=== PATIENT | male | born 1975 | race Caucasian/White ===

== ENCOUNTER 2021-01-01 10:26 | Emergency (ER) | payer BC, SELFPAY ==
[2021-01-01 11:09] VITALS: BP 137/84; PULSE 85; RESP 18; TEMP 36.4; O2SAT 100
--- NOTE | 2021-01-01 11:44 | ED.LOWEXIN ---
HPI - Extremity Injury (Lower) General Chief Complaint: Extremity Problem,Nontraumatic Stated Complaint: pain in lt leg Time Seen by Provider: 01/01/21 11:52 Source: patient and RN notes reviewed Mode of arrival: ambulatory Limitations: no limitations History of Present Illness HPI Narrative: Basim is a 45-year-old male patient who ambulated into the [facility]. Patient has had left miller pain for the last 2 days. Patient denies any fever. Patient states that it was soreness yesterday but at the end of his shift he could barely walk. Patient denies any [id number] treatment Related Data Allergies Allergy/AdvReac Type Severity Reaction Status Date / Time No Known Allergies Allergy Verified 01/01/21 11:53 Review of Systems Review of Systems: CONSTITUTIONAL: Denies body aches, fever, chills, or sweats. EYES: Denies visual changes, redness, or discharge. ENT: Denies rhinorrhea, congestion, sore throat, or otalgia. CARDIOVASCULAR: Denies chest pain, palpitations, or edema. RESPIRATORY: Denies cough or dyspnea. GASTROINTESTINAL: Denies abdominal pain, nausea, vomiting, or diarrhea. GENITOURINARY: Denies dysuria or hematuria. SKIN: Denies rash, itching, or wounds. MUSCULOSKELETAL: Denies back pain, joint pain, or myalgia; + Left miller pain NEUROLOGIC: Denies headache, numbness, tingling, or weakness. PSYCH: Denies depression or anxiety. All systems reviewed & are unremarkable except as noted in HPI and below PMFSH Comments At time of signature, I have reviewed and agree with nursing past medical, surgical, social and family history unless otherwise noted. Please see nursing chart for further information. There is no relevant family history pertinent to the presenting complaint Exam Narrative: GENERAL: Well-appearing, well-nourished, and in no acute distress. HEAD: Normocephalic, atraumatic. EYES: EOMI. No redness or drainage. Conjunctivae normal. ENT: Mucous membranes pink and moist. Nares clear. No rhinorrhea. . NECK: Normal AROM. Supple. No lymphadenopathy. CHEST: No respiratory distress. Clear to auscultation. HEART: Regular rate and rhythm. No murmur appreciated. Normal peripheral pulses. ABDOMEN: Soft, nontender, nondistended, normal active bowel sounds. MUSCULOSKELETAL: No bony tenderness. EXTREMITIES: Normal range of motion. Left lower miller with minimal erythema, edema, and increased warmth to touch. approximately 4cm round area of increased warmth and mild erythema noted. SKIN: Warm, dry, no rash. Capillary refill normal. Normal skin turgor., negative homans sign left leg. NEURO: No focal deficits. Alert and oriented x3. Gait steady. PSYCH: Normal affect. No signs of depression or anxiety. Course Vital Signs Vital signs: Vital Signs Temperature 36.4 C 01/01/21 11:09 Pulse Rate 85 01/01/21 11:09 Respiratory Rate 18 01/01/21 11:09 Blood Pressure 137/84 01/01/21 11:09 Pulse Oximetry 100 01/01/21 11:09 Temperature 36.4 C 01/01/21 11:09 Pulse Rate 85 01/01/21 11:09 Respiratory Rate 18 01/01/21 11:09 Blood Pressure 137/84 01/01/21 11:09 Pulse Oximetry 100 01/01/21 11:09 Reviewed. Pt has been instructed to follow up with his PCP regarding his elevated blood pressure today. MDM - Extremity Injury (Lower) MDM Narrative Medical decision making narrative: Patient's left miller is minimally erythemic with mild edema approximately 3 cm round area has increasing warmth compared to distal lower extremity in his right leg. Patient will be treated with anti-inflammatories and antibiotics. Patient to follow-up with his primary care physician in 3 to 5 days for continued or increasing symptoms. Differential Diagnosis Differential diagnosis: Likely ankle sprain and strain, fracture of toe, ankle fracture and other (Cellulitis) Medical Records Attestation: I reviewed the patient's medical records. Critical Care Time Critical Care Time Critical Care Time: No Discharge Plan
== END 2021-01-01 12:11 | disposition home or self-care (01) ==
PROVIDERS: Emergency Provider Nurse Practitioner Family
DX: L03.116 Cellulitis of left lower limb (principal)
CPT/HCPCS: 99203; G0463

== ENCOUNTER 2024-01-28 13:40 | Emergency (ER) | payer OTHER, SELFPAY ==
[2024-01-28 14:10] VITALS: BP 146/86; PULSE 71; RESP 18; TEMP 36.7; O2SAT 97
--- NOTE | 2024-01-28 14:14 | ED.GENADULT ---
HPI - General Adult General Chief complaint: Upper Respiratory Infection Stated complaint: congestion/cough Time Seen by Provider: 01/28/24 14:14 Source: patient Mode of arrival: ambulatory Limitations: no limitations History of Present Illness HPI narrative: 48-year-old male patient presents to the [facility] with complaints of congestion, cough and cold symptoms for the past 2 weeks. Denies fevers, body aches or chills. Patient states that he saw his primary doctor this past Tuesday and stated that it was most likely viral will go away on its own. Patient states he has been taking [id number] Mucinex and decongestants and has not helped. Related Data Home Medications ?Medication ?Instructions ?Recorded ?Confirmed ?Last Taken ?Type bupropion HCl 150 mg 24 hr tablet, mg PO 01/28/24 Unknown History extended release trazodone 50 mg tablet mg 01/28/24 Unknown History Allergies Allergy/AdvReac Type Severity Reaction Status Date / Time No Known Allergies Allergy Verified 01/28/24 14:14 Review of Systems Review of Systems: CONSTITUTIONAL: Denies fever, chills, or sweats. EYES: Denies visual changes, redness, or discharge. ENT: Positive rhinorrhea, congestion, denies sore throat, or otalgia. CARDIOVASCULAR: Denies chest pain, palpitations, or edema. RESPIRATORY: positive mild intermittent cough, denies dyspnea. GASTROINTESTINAL: Denies abdominal pain, nausea, vomiting, or diarrhea. GENITOURINARY: Denies dysuria or hematuria. SKIN: Denies rash or itching. MUSCULOSKELETAL: Denies back pain, joint pain, or myalgia. NEUROLOGIC: positive headache, denies numbness, or weakness. PSYCHIATRIC: Denies anxiety or depression. PMFSH Comments At the time of my signature I agree with nursing past medical history, surgical, social, and family history. There is no relevant family history pertinent to the presenting complaint. Exam Narrative: GENERAL: Well-appearing, well-nourished, and in no acute distress. HEAD: Normocephalic, atraumatic. EYES: PERRLA and EOMI. ENT: Nares with erythema and edema noted bilaterally, clear rhinorrhea or epistaxis. Mucous membranes moist. posterior pharynx with postnasal drip noted. Tonsils with no enlargement or exudates noted. Bilateral TMs are clear no erythema or foreign bodies the canal there is little bit of fluid noted behind the TM. NECK: Supple. No lymphadenopathy CHEST: Clear to auscultation. No respiratory distress. HEART: Regular rate and rhythm. No murmur heard. Normal peripheral pulses. ABDOMEN: Soft, nontender, nondistended, normal active bowel sounds. EXTREMITIES: Normal range of motion. No edema. SKIN: Warm, dry, no rash. NEURO: No focal deficits. Alert and oriented x3. Course Course Level of Care: Express [facility] Visit Vital Signs Vital signs: Vital Signs Temperature 36.7 C 01/28/24 14:10 Pulse Rate 71 01/28/24 14:10 Respiratory Rate 18 01/28/24 14:10 Blood Pressure 146/86 H 01/28/24 14:10 Pulse Oximetry 97 01/28/24 14:10 Oxygen Delivery Room Air 01/28/24 14:10 Temperature 36.7 C 01/28/24 14:10 Pulse Rate 71 01/28/24 14:10 Respiratory Rate 18 01/28/24 14:10 Blood Pressure 146/86 H 01/28/24 14:10 Pulse Oximetry 97 01/28/24 14:10 Oxygen Delivery Room Air 01/28/24 14:10 Vital signs reviewed. The patient has been informed that they may have pre-hypertension or Hypertension based on a BP reading in the department. I recommend that the patient call the primary care provider listed on their discharge instructions or a physician of their choice this week to arrange follow up for further evaluation of possible pre-hypertension or Hypertension Medical Decision Making MDM Narrative Medical decision making narrative: Discussed with patient he is not running fevers and there is no other signs of any kind of bacterial infection. Discussed with him this is most likely inflammation highly recommend that he do a daily antihistamine something like Zyrtec, Claritin or Leila and may also use a sinus rinse something like a Neti pot or Flonase to help with the congestion. We will also provide him a steroid to help with the inflammation and dry up the sinus drainage. Discussed patient he does not need antibiotics at this time this is not considered bacterial. Patient verbalized understanding denies any other questions or concerns at this time. Differential Diagnosis Differential Diagnosis: Differential diagnosis: Allergic rhinitis, chronic sinusitis, tonsillitis, acute sinusitis, infectious mononucleosis, seasonal influenza, pertussis, diphtheria, meningococcal disease, viral syndrome, viral bronchitis, RSV, COVID-19 Vital Signs Vital Signs: Vital Signs Temperature 36.7 C 01/28/24 14:10 Pulse Rate 71 01/28/24 14:10 Respiratory Rate 18 01/28/24 14:10 Blood Pressure 146/86 H 01/28/24 14:10 Pulse Oximetry 97 01/28/24 14:10 Oxygen Delivery Room Air 01/28/24 14:10 Temperature 36.7 C 01/28/24 14:10 Pulse Rate 71 01/28/24 14:10 Respiratory Rate 18 01/28/24 14:10 Blood Pressure 146/86 H 01/28/24 14:10 Pulse Oximetry 97 01/28/24 14:10 Oxygen Delivery Room Air 01/28/24 14:10 Critical Care Time Critical Care Time Critical Care Time: No Discharge Plan Discharge Clinical Impression: Sinusitis Qualifiers: Sinusitis location: unspecified location Chronicity: acute Recurrence: non-recurrent Qualified Code(s): J01.90 - Acute sinusitis, unspecified Patient Disposition: Home, Self-Care Condition: Stable Instructions: Antibiotic Form, Sinusitis (ED) Additional Instructions: Viral illness may last between 7-12days; antibiotic is NOT recommended at this time. Recommend antihistamine such as Benadryl at night time and Claritin/Zyrtec/Leila during the day Cough syrup may cause drowsiness; avoid driving or take it at night time. Also, recommend symptomatic treatment includes: rest, fluids, and increase humidity of the air at home. Recommend Acetaminophen or nonsteroidal anti-inflammatory agents (NSAIDs) as directed in the bottle to reduce fever and/pain/headache. Avoid smoking/second-hand smoke. Limit visits to areas with large crowds. Please schedule a follow-up visit with your personal physician for further evaluation and treatment within 3-5days. Including recheck and discussion of your blood pressure. If your symptoms persist, change or worsen significantly before you can contact your personal physician then please, without delay, go to the emergency department for further evaluation. Patient Language: [place] Islander Prescriptions: New prednisone 20 mg tablet 20 mg PO DAILY 5 Days Qty: 5 0RF No Action trazodone 50 mg tablet bupropion HCl 150 mg tablet extended release 24 hr PO Follow-up/Referrals: Vikas,MD Stefania [Primary Care Provider] - Time of Disposition: 14:21
--- OUTSIDE RECORDS SUMMARY | 2024-02-01 16:59 | XMS_ITS | Encounter Summary ---
Author Organization [facility] Address [facility] [place] [address] [place] [address] Care Team Providers Care Supervisor Dry Paste Name Role Phone Stefania Bean MD Primary Care Provider [phone] Encounter Details Date Type Department Care Team (Late st Contact Info) Description 11/14/2023 Orders Only [facility] Family & Internal Medicine [facility] [address] [place] [address] [place] [address] [place] [address] Social History Tobacco Use Types Packs/Day Years Used Date Smoking Tobacco: Never Smokeless Tobacco: Never Alcohol Use Standard Drinks/Week Comments Never 0 (1 standard drink = 0.6 oz pur e alcohol) PHQ-2 Answer Date Recorded Patient Health Questionnaire-2 Score 5 09/09/2023 Sex and Gender Information Value Date Recorded Sex Assigned at Not on file Legal Sex Male 9:21 AM CDT Gender Identity Not on file Sexual Orientation Not on file documented as of this encounter Plan of Treatment Upcoming Encounters Date Type Department Care Team (Late st Contact Info) Description 07/23/2024 9:00 AM CDT Office Visit [facility] Family & Internal [facility] [address] [place] [address] [place] [address] [place] [phone] documented as of this encounter Visit Diagnoses Diagnosis Vitamin D deficiency- Primary Unspecified vitamin D deficiency documented in this encounter Additional Health Concerns Assessment Noted Time PHQ-9 Depression Total Score: 18 024 3:11 PM CDT documented as of this encounter Care Teams Supervisor Dry Paste Relationship Specialty [place] [id number] [place] [id number] PCP - General FAMILY PRACTICE 06/01/21 documented as of this encounter
--- OUTSIDE RECORDS SUMMARY | 2024-02-01 16:59 | XMS_ITS | Clinical Summary ---
Author Organization [facility] Address [facility] [place] [address] [place] [address] Care Team Providers Care Counterintelligence Agent Name Role Phone Stefania Bean MD Primary Care Provider [phone] Allergies No known active allergies Medications vitamin D2, ergocalcifero l, (DRISDOL) 1.25 mg capsuleIndica tions:Vitamin D deficiency 50,000 units weekly for 12 weeks. Continue vitamin D 1,000 units for 3 to 6 months after this date. 12 capsule 06/17/19 23 Active Additional Information Patient taking differently: 1,000 Units Oral Daily, 50,000 units weekly for 12 weeks. Continue vitamin D 1,000 units for 3 to 6 months after this date., Reported on 01/24/2024 vitamin D3 (CHOLECALCIFE ROL) 1.25 mg capsuleIndica tions:Vitamin D deficiency Take 1 capsule (50,000 Units total) by mouth once a week. 12 capsule 11/14/19 24 Active buPROPion XL (WELLBUTRIN XL) 150 MG 24 hr tabletIndicat ions:Moderate episode of recurrent major depressive disorder (CMS/HCC HHS/HCC) Take 2 tablets (300 mg total) by mouth every morning. 60 tablet 5 01/24/20 24 Active traZODone (DESYREL) 50 MG tabletIndicat ions:Moderate episode of recurrent major depressive disorder (CMS/HCC HHS/HCC) TAKE 0.5 TABLETS BY MOUTH NIGHTLY AT BEDTIME. 15 tablet 5 02/01/20 24 Active traZODone (DESYREL) 50 MG tabletIndicat ions:Moderate episode of recurrent major depressive disorder (CMS/HCC HHS/HCC) Take 1 tablet (50 mg total) by mouth nightly at bedtime. 30 tablet 5 10/12/19 24 024 Discontinued(Re order) buPROPion XL (WELLBUTRIN XL) 150 MG 24 hr tabletIndicat ions:Moderate episode of recurrent major depressive disorder (CMS/HCC HHS/HCC) Take 1 tablet (150 mg total) by mouth every morning. 30 tablet 5 10/12/19 24 024 Discontinued(Re order) buPROPion XL (WELLBUTRIN XL) 150 MG 24 hr tabletIndicat ions:Moderate episode of recurrent major depressive disorder (CMS/HCC HHS/HCC) Take 1 tablet (150 mg total) by mouth every morning. 30 tablet 5 01/24/20 24 024 Discontinued traZODone (DESYREL) 50 MG tabletIndicat ions:Moderate episode of recurrent major depressive disorder (CMS/HCC HHS/HCC) Take 1 tablet (50 mg total) by mouth nightly at bedtime. 30 tablet 5 01/24/20 24 024 Discontinued Active Problems Problem Noted Date Diagnosed Date Gender identity disorder, unspecified 04/11/2023 Elevated glucose 06/05/2021 Dysthymia 08/25/2020 Fatigue, unspecified type 08/25/2020 Class 1 obesity due to exces s calories without serious comorbidity with body mass index (BMI) of 33.0 to 33.9 in adult 08/25/2020 Medication management 08/25/2020 DAVION (obstructive sleep apnea) 08/25/2020 Overview (08/25/2020): Not currently on CPAP. ESS 04/09 - [id number] Resolved Problems Problem Noted Date Diagnosed Date Resolved Date Screening for colon cancer 07/01/2023 0 07/11/2023 Screening for colon cancer 07/01/2023 0 08/22/2023 Screening for colon cancer 07/01/2023 0 08/29/2023 Encounters Date Type Department Care Team Description 01/24/2024 11:40 AM BRAND MANAGER Office Visit [facility] Family & Internal Medicine [address] [address] Stefania Bean MD Medication (3 month follow up medication) 01/24/2024 Travel 11/14/2023 Orders Only [facility] Medical [facility] Family & Internal Medicine [facility] [address] [place] [address] Stefania Bean MD from Last 3 Months Immunizations Name Administration Dates Next Due MMR 01/30/2008 Td 10/09/2007 Tdap (Adacel) 06/05/2021 Family History Medical History Relation Comments Alcohol Abuse Father Depression Father Drug Abuse Father Early Father Hypertension Father Mental Health Father Stroke Father Heart Disease Maternal Grandfather Heart Disease Other Relation Status Comments Father Maternal Grandfather Mother Alive Other Alive Social History Tobacco Use Types Packs/Day Years Used Date Smoking Tobacco: Never Smokeless Tobacco: Never Tobacco Cessation:Counseling Given: No Alcohol Use Standard Drinks/Week Comments Never 0 (1 standard drink = 0.6 oz pur e alcohol) PHQ-2 Answer Date Recorded Patient Health Questionnaire-2 Score 6 01/24/2024 Sex and Gender Information Value Date Recorded Sex Assigned at Not on file Legal Sex Male 9:21 AM CDT Gender Identity Not on file Sexual Orientation Not on file Last Filed Vital Signs Vital Sign Reading Time Taken Comments Blood Pressure 135/87 01/24/2024 11:38 AM BRAND MANAGER Pulse 67 01/24/2024 11:38 AM BRAND MANAGER Temperature 37 ??C (98.6 ??F) 01/24/2024 11: 38 AM BRAND MANAGER Respiratory Rate 16 01/24/2024 11:3 8 AM BRAND MANAGER Oxygen Saturation 97% 01/24/2024 11: 38 AM BRAND MANAGER Inhaled Oxygen Concentration - - Weight 105.4 kg (232 lb 6.4 oz) 024 11:38 AM BRAND MANAGER Height 180.3 cm (5' 11 ) 01/24/2024 11: 38 AM BRAND MANAGER Body Mass Index 32.41 01/24/2024 11:38 AM BRAND MANAGER Plan of Treatment Upcoming Encounters Date Type Department Care Team (Late st Contact Info) Description 07/23/2024 9:00 AM CDT Office Visit [facility] Family & Internal Medicine [facility] [address] [place] [address] [place] [address] [facility] [place] [id number] Health Maintenance Due Date Last Done Comments Annual Physical 05/09/1978 Hepatitis B Vaccines (1 of 3 - 19+ 3-dose series) 05/09/1994 COVID-19 Vaccine (2023-2 5 season) 2025 Postponed from 10/16/2023 (Patient Refused) Influenza Adult (#1) 2025 Postpon ed from 11/15/2023 (Patient Refused) DTaP, Tdap and Td Vaccines ( 2 - Td or Tdap) 06/06/2031 06/05/2021, 10/09/2007 Colorectal Cancer Screening Colonoscopy (10 Years) 08/25/2033 08/26/2023 Colorectal Cancer Screening FIT/FOBT (1 Year) Discontinued 11/02/2018 Hepatitis C Completed 06/05/2021 Meningococcal Vaccine Aged Out No gerald pierre eligible based on patient's age to complete this topic Pneumococcal Vaccine: Pediatrics (0 to 5 Years) and At-Risk Patients (6 to 64 Years) Aged Out No longer eligible b ased on patient's age to complete this topic RSV Immunizations Under 20 Months Aged Out No longer eligible b ased on patient's age to complete this topic Procedures Procedure Name Priority Date/Time Associated Diagnosis Comments HEPATITIS C ANTIBODY W/RFX TO HCV RNA Routine 06/05/2021 8:38 AM CDT Need for hepatitis C screening test FECAL BLOOD FIT SCREEN Routine 11/02/2018 9:40 AM CDT from Last 3 Months or Most Recently Relevant to Health Maintenance Results * HEPATITIS C ANTIBODY ([facility] ONLY) (06/05/2021 8:38 AM CDT) HEPATITIS C AB NON-REACTI VE NON-REACT MARQUISE [facility] SIGNAL TO CUTOFF 0.01 <[address] [facility] Comment: HCV antibody was non-reactive. There is no laboratory evidence of HCV infection. In most cases, no further action is required. However, if recent HCV exposure is suspected, a test for HCV RNA (test code 65411) is suggested. For additional information please refer to http://[email or web address] Revolution/faq/VQO83u4 (This link is being provided for informational/ educational purposes only.) 06/05/2021 8:38 AM CDT 06/06/2021 6:36 AM CDT us Stefania Bean MD LABORATORY Final Result [facility] [address] [facility] [address] * FECAL BLOOD FIT SCREEN (11/02/2018 9:40 AM CDT) FECAL BLOOD FIT SCRN NEGATIVE NEGATIVE 11/10/2018 10:57 AM CDT [facility] 11/02/2018 9:40 AM CDT us Ania Sahu MD BODY FLUIDS AND STOOLS O RDERABLES Final Result [facility] [address] [place] [address], from Last 3 Months or Most Recently Relevant to Health Maintenance Insurance [employer] Care Teams Counterintelligence Agent Relationship Specialty [place] [address] [place] [address] PCP - General FAMILY PRACTICE 06/01/21
--- OUTSIDE RECORDS SUMMARY | 2024-02-01 16:59 | XMS_ITS | Encounter Summary ---
Author Organization [facility] Address [facility] [place] [address] [place] [address] Care Team Providers Care Peer Counselor Name Role Phone Stefania Bean MD Primary Care Provider Reason for Visit * Reason Comments Medication 3 month follow up me dication Encounter Details Date Type Department Care Team (Late st Contact Info) Description 01/24/2024 11:40 AM SNOW BLOWER Office Visit [facility] Internal Medicine [facility] [id number] [place] [address] [place] [id number] [place] [address]. [address] [place] [address] Medication (3 month follow up medication) Social History Tobacco Use Types Packs/Day Years [...] on file documented as of this encounter Last Filed Vital Signs Vital Sign Reading Time Taken Comments Blood Pressure 135/87 01/24/2024 11:38 AM SNOW BLOWER Pulse 67 01/24/2024 11:38 AM SNOW BLOWER Temperature 37 ??C (98.6 ??F) 01/24/2024 11: 38 AM SNOW BLOWER Respiratory Rate 16 01/24/2024 11:3 8 AM SNOW BLOWER Oxygen Saturation 97% 01/24/2024 11: 38 AM SNOW BLOWER Inhaled Oxygen Concentration - - Weight 105.4 kg (232 lb 6.4 oz) 024 11:38 AM SNOW BLOWER Height 180.3 cm (5' 11 ) 01/24/2024 11: 38 AM SNOW BLOWER Body Mass Index 32.41 01/24/2024 11:38 AM SNOW BLOWER documented in this encounter Progress Notes * Stefania eBan MD - 01/24/2024 11:40 AM CST Reason for Visit: Medication (3 month follow up medication) History of Present Illness: HPI Mr. Mio Bernard is a pleasant 48 year old Male with PMH of dysthymia, hx of prediabetes ,HLD,gender identity DISORDER AND depression was seen today for 3-month follow-up. The patient reported experiencing sinus congestion, noting that this occurs annually when there aresignificant temperature changes. The patient did not report fever, sore throat, ear pain, or recentcontact with sick individuals. The patient mentioned that their symptoms were improving. The patient completed transcranial magnetic stimulation (TMS) treatment but did not notice any difference in their condition. The patient expressed feelings of depression and described their current medication regimen, which includes Wellbutrin and Trazodone. The patient reported no longer seeing atherapist but is planning to start couple's therapy soon. The patient did not report chest pain or dizzy spells and noted that sleep quality was good. The patient has a family history of heart problems, specifically with the maternal grandfather. The patient is aware of slightly elevated cholesterol levels from a October blood test and is making dietary changes and maintaining regular physical a ctivity, achieving about 10,000 steps per night at work. Pertinent negatives include no reported chest pain or dizzy spells. ROS: Review of Systems negative except HPI Medications: Current Outpatient Medications: buPROPion XL (WELLBUTRIN XL) 150 MG 24 hr tablet, Take 1 tablet (150 mg total) by mouth every morning., Disp: 30 tablet, Rfl: 5 traZODone (DESYREL) 50 MG tablet, Take 1 tablet (50 mg total) by mouth nightly at bedtime., Disp: 30 tablet, Rfl: 5 vitamin D2, ergocalciferol, (DRISDOL) 1.25 mg capsule, 50,000 units weekly for 12 weeks. Continue vitamin D 1,000 units for 3 to 6 months after this date. (Patient taking differently: Take 1,000 Units by mouth daily. 50,000 units weekly for 12 weeks. Continue vitamin D 1,000 units for 3 to 6 monthsafter this date.), Disp: 12 capsule, Rfl: 0 vitamin D3 (CHOLECALCIFEROL) 1.25 mg capsule, Take 1 capsule (50,000 Units total) by mouth once a week., Disp: 12 capsule, Rfl: 0 Review of patient's allergies indicates: No Known Allergies Past Medical History: Diagnosis Date Allergy seasonal COVID-19 12/2019 Depression Gender dysphoria Sleep apnea Past Surgical History: Procedure Laterality Date COLONOSCOPY N/A 08/26/2023 Colonoscopy with polypectomy performed by Harvey Pradhan MD at [facility] OR REMOVAL OF SPERM DUCT(S) Social History Socioeconomic History Marital status: Tobacco Use Smoking status: Never Smokeless tobacco: Never Vaping Use Vaping status: Never Used Substance and Sexual Activity Alcohol use: Never Drug use: Never Sexual activity: Yes Partners: Female control/protection: Surgical Social History Narrative Lives with and family E-Cigarettes Questions Responses E-Cigarette Use Never User E-cigarette/Vaping Substances Questions Responses Nicotine No THC No CBD No Flavoring No E-cigarette/Vaping Devices Questions Responses Disposable No Pre-filled or Refillable Cartridge No Refillable Tank No Pre-filled Pod No Family History Problem Relation Name Age of Onset Alcohol Abuse Father Ed Strange Depression Father Ed Strange Drug Abuse Father Ed Strange Early Father Ed Strange Hypertension Father Ed Strange Mental Health Father Ed Strange Stroke Father Ed Strange Heart Disease Other family history Heart Disease Maternal Grandfather Roscoe Kemp Family Status Relation Name Status Mother Alive Father Ed Strange Other family history Alive MGF Roscoe Kemp (Not Specified) No partnership data on file Physical Exam Vitals reviewed. Constitutional: Appearance: Normal appearance. He is obese. HENT: Head: Normocephalic. Nose: Congestion present. Eyes: Conjunctiva/sclera: Conjunctivae normal. Cardiovascular: Rate and Rhythm: Normal rate and regular rhythm. Pulmonary: Effort: Pulmonary effort is normal. No respiratory distress. Breath sounds: Normal breath sounds. No wheezing. Musculoskeletal: Right lower leg: No edema. Left lower leg: No edema. Skin: General: Skin is warm. Neurological: Mental Status: He is alert and oriented to person, place, and time. Mental status is at baseline. Psychiatric: Attention and Perception: Attention normal. Mood and Affect: Mood is depressed. Behavior: Behavior normal. Thought Content: Thought content does not include homicidal or suicidal ideation. Thought content does not include homicidal or suicidal plan. Cognition and Memory: Cognition normal. Filed Vitals: 01/24/24 1138 BP: 135/87 Pulse: 67 Resp: 16 Temp: 98.6 ??F (37 ??C) TempSrc: Temporal SpO2: 97% Weight: 105.4 kg (232 lb 6.4 oz) Height: 1.803 m (5' 11 ) PainSc: 0 (0-10 Scale) Diagnoses/Impression: 1. Moderate episode of recurrent major depressive disorder (CMS/HCC [facility]/HCC) buPROPion XL (WELLBUTRIN XL) 150 MG 24 hr tablet traZODone (DESYREL) 50 MG tablet 2. Gender identity disorder, unspecified 3. Elevated LDL cholesterol level 4. Acute non-recurrent frontal sinusitis Recommendations and Plan: Depression is chronic. Stable. Continue trazodone.Increase wellbutrin to 300 mg qD FU WITH PSYCH IF NEEDED Continue therapy. CHOLESTrol is diet controlled. Advised 30 mins of exercise 5 times a week. advised reducing intake of fatty and greasy foods. - Encouraged regular physical activity and incorporating short routines of yoga or meditation to improve mood. Conservative management for sinusitis, abx if symptoms persist by end of week. He will call office Follow-up in 6 months. Earlier if needed. He voiced understanding and agrees with the plan. All questions answered. Orders Placed This Encounter buPROPion XL (WELLBUTRIN XL) 150 MG 24 hr tablet traZODone (DESYREL) 50 MG tablet Reviewed and updated this visit by provider: Allergies Meds Problems Stefania Bean MD Referring Provider: No ref. provider found PCP: Stefania Bean MD BLOWER documented in this encounter Plan of Treatment Upcoming Encounters Date Type Department Care Team (Late st Contact Info) Description 07/23/2024 9:00 AM CDT Office Visit [facility] Family & Internal Medicine [address] [phone] [place] [address] [address] [place] [address] documented as of this encounter Visit Diagnoses Diagnosis Moderate episode of recurrent major depressive disorder ([facility])- Primary Gender identity disorder, unspecified Elevated LDL cholesterol level Pure hypercholesterolemia Acute non-recurrent frontal sinusitis documented in this encounter Additional Health Concerns Assessment Noted Time PHQ-9 Depression Total Score: 12 024 11:44 AM SNOW BLOWER documented as of this encounter Care Teams Peer Counselor Relationship Specialty [place] [address] [place] [address] PCP - General FAMILY PRACTICE 06/01/21 documented as of this encounter
--- OUTSIDE RECORDS SUMMARY | 2024-02-01 16:59 | XMS_ITS | Encounter Summary ---
Author Organization [facility] Address [facility]6 [facility] [place] [address] [place] [address] Care Team Providers Care Patient Portal Concierge Name Role Phone Stefania Bean MD Primary Care Provider [phone] Encounter Details Date Type Department Care Team (Latest Contact Info) Description 01/24/2024 Travel Social History Tobacco Use Types Packs/Day Years [...] [facility] [address] [place] [address] [place] [address] [facility] [employer] [address] [place] [address] documented as of this encounter Visit Diagnoses Not on filedocumented in this encounter Additional Health Concerns Assessment Noted Time PHQ-9 Depression Total Score: 12 024 11:44 AM COVER CREASER documented as of this encounter Care Teams Patient Portal Concierge Relationship Specialty [place] [address] [facility] [employer] [address] [place] [address] PCP - General FAMILY PRACTICE 06/01/21 documented as of this encounter
--- OUTSIDE RECORDS SUMMARY | 2024-02-01 16:59 | XMS_ITS | Encounter Summary ---
Author Organization [facility] Address [facility] [address] [place] [address] Care Team Providers Care Sales Representative Public Utilities Name Role Phone Stefania Bean MD Primary Care Provider [phone] Encounter Details Date Type Department Care Team (Late st Contact Info) Description 10/31/2023 9:00 AM CDT Laboratory Only [facility] Family & Internal [address] [address] [place] [address] [address] [place] [address] Social History Tobacco Use Types Packs/Day [...] Description 07/23/2024 9:00 AM CDT Office Visit [facility] Family & Internal [facility] [address] [place] [address] [place] [address] [address] [place] [address] documented as of this encounter Procedures Procedure Name Priority Date/Time Associated Diagnosis Comments VENIPUNC ARM DRAW Routine 10/31/2023 8:43 AM CDT Vitamin D deficiency Lipid screening Moderate episode of recurrent major depressive disorder ([facility] HHS/HCC) documented in this encounter Visit Diagnoses Diagnosis Vitamin D deficiency- Primary Unspecified vitamin D deficiency Lipid screening Screening for lipoid disorders Moderate episode of recurrent major depressive disorder (CMS/HCC HHS/HCC) documented in this encounter Additional Health Concerns Assessment Noted Time PHQ-9 Depression Total Score: 18 024 3:11 PM CDT documented as of this encounter Care Teams Sales Representative Public Utilities Relationship Specialty [place] [address] [facility]. [address] [place] [address] PCP - General FAMILY PRACTICE 06/01/21 documented as of this encounter
--- OUTSIDE RECORDS SUMMARY | 2024-02-01 16:59 | XMS_ITS | Encounter Summary ---
Author Organization [facility] Address [facility] [place] [address] [place] [address] Care Team Providers Care Care Clinician Name Role Phone Stefania Bean MD Primary Care Provider [phone] Encounter Details Date Type Department Care Team (Latest Contact Info) Description 10/31/2023 Travel Social History Tobacco Use Types Packs/Day [...] Description 07/23/2024 9:00 AM CDT Office Visit [facility] Family & Internal Medicine [facility] [address] [place] [address] [place] [address] [facility] [address] [place] [address] documented as of this encounter Visit Diagnoses Not on filedocumented in this encounter Additional Health Concerns Assessment Noted Time PHQ-9 Depression Total Score: 18 024 3:11 PM CDT documented as of this encounter Care Teams Care Clinician Relationship Specialty [place] [address] [facility] [employer]. [address] [place] [address] PCP - General FAMILY PRACTICE 06/01/21 documented as of this encounter
--- OUTSIDE RECORDS SUMMARY | 2024-02-01 17:00 | XMS_ITS | Encounter Summary ---
Author Organization [facility] Address [facility]6 [facility] [place] [address] [place] [address] Care Team Providers Care Crop Or Grain Farmer Name Role Phone Stefania Bean MD Primary Care Provider [phone] Encounter Details Date Type Department Care Team (Latest Contact Info) Description 10/12/2023 Travel Social History Tobacco Use Types Packs/Day [...] Description 07/23/2024 9:00 AM CDT Office Visit [facility] Family & Internal Medicine [facility] [address] [place] [address] [place] [address] [facility] [place] [address] documented as of this encounter Visit Diagnoses Not on filedocumented in this encounter Additional Health Concerns Assessment Noted Time PHQ-9 Depression Total Score: 18 024 3:11 PM CDT documented as of this encounter Care Teams Crop Or Grain Farmer Relationship Specialty [place] [address] [facility] [employer]. [address] [place] [address] PCP - General FAMILY PRACTICE 06/01/21 documented as of this encounter
--- OUTSIDE RECORDS SUMMARY | 2024-02-01 17:00 | XMS_ITS | Encounter Summary ---
Author Organization [facility] Address [facility] [place] [address] [place] [address] Care Team Providers Care Interpretive Naturalist Name Role Phone Stefania Bean MD Primary Care Provider [phone] Encounter Details Date Type Department Care Team (Latest Contact Info) Description 09/09/2023 Travel Social History Tobacco Use Types Packs/Day [...] Description 07/23/2024 9:00 AM CDT Office Visit [facility] Family & Internal Medicine [facility] [address] [place] [address] [place] [address] [facility] [place] [address] documented as of this encounter Visit Diagnoses Not on filedocumented in this encounter Additional Health Concerns Assessment Noted Time PHQ-9 Depression Total Score: 18 024 3:11 PM CDT documented as of this encounter Care Teams Interpretive Naturalist Relationship Specialty [place] [address] [facility] [employer]. [address] [place] [address] PCP - General FAMILY PRACTICE 06/01/21 documented as of this encounter
--- OUTSIDE RECORDS SUMMARY | 2024-02-01 17:00 | XMS_ITS | Encounter Summary ---
Author Organization [facility] Address [facility] [place] [address] [place] [address] Care Team Providers Care Packaging Sales Representative Name Role Phone Stefania Bean MD Primary Care Provider [phone] Reason for Visit * Reason Onset Date Comments Other 09/23/2023 Gene site testin g Encounter Details Date Type Department Care Team (Late st Contact Info) Description 09/23/2023 Telephone [facility] Family & Internal Medicine [facility] [address] [place] [address] [id number] [place] [address]. [address] [place] [address] Other (Gene site testing ) Social History Tobacco Use Types Packs/Day Years [...] on file documented as of this encounter Progress Notes * Luz Garcia LPN - 11/14/2023 10:39 AM CDT Pt called I read him providers message as written V/U he will order picker Vit d script * Mulu Villagomez RN - 09/28/2023 11:35 AM CDT This call printed & will give to on 10/12/23 appt. * Stefania Bean MD - 09/27/2023 11:43 PM CDT Will do at 10/11 apt * Mulu Villagomez RN - 09/27/2023 2:55 PM CDT Noted. * Susan Herring - 09/27/2023 2:53 PM CDT Brian carias, states they do not fax orders. This will need to be done on the [employer] testingwebsite. Please return call and she can walk Dr. Bean through the website process. CB # [phone] * Luz Garcia LPN - 09/27/2023 2:22 PM CDT Pt called she will call [employer] and give them the fax number and dr will sign order once they do that I read message below to * Mulu Villagomez RN - 09/26/2023 10:34 AM CDT LMOM that she can fax orders to [phone] and will sign off on them, call with any questions. * Stefania Bean MD - 09/24/2023 5:17 PM CDT They can fax orders for me to sign * Luz Garcia LPN - 09/23/2023 2:48 PM CDT [place] with gene site testing Reaching out to Dr. Bean to help with ordering pt gene testing Please call back [phone] documented in this encounter Plan of Treatment Upcoming Encounters Date Type Department Care Team (Late st Contact Info) Description 07/23/2024 9:00 AM CDT Office Visit [facility] Family & Internal Medicine [address] [address] [place] [address] [facility]. [address] [place] [address] documented as of this encounter Visit Diagnoses Not on filedocumented in this encounter Additional Health Concerns Assessment Noted Time PHQ-9 Depression Total Score: 18 024 3:11 PM CDT documented as of this encounter Care Teams Packaging Sales Representative Relationship Specialty Start Date End Date Stefania Bean MD [address] [place] [address]. [address] [place] [id number] PCP - General FAMILY PRACTICE 06/01/21 documented as of this encounter
--- OUTSIDE RECORDS SUMMARY | 2024-02-01 17:00 | XMS_ITS | Encounter Summary ---
Author Organization [facility] Address [facility]. [place], [place] [address] [place] [address] Care Team Providers Care Helmet Coverer Name Role Phone Stefania Bean MD Primary Care Provider [phone] Encounter Details Date Type Department Care Team (Latest Contact Info) Description 08/26/2023 Travel Social History Tobacco Use Types Packs/Day Years Used Date Smoking Tobacco: Never Smokeless Tobacco: Never Alcohol Use Standard Drinks/Week Comments Never 0 (1 standard drink = 0.6 oz pur e alcohol) PHQ-2 Answer Date Recorded Patient Health Questionnaire-2 Score 1 07/01/2023 Sex and Gender Information Value Date Recorded Sex Assigned at Not on file Legal Sex Male 9:21 AM CDT Gender Identity Not on file Sexual Orientation Not on file documented as of this encounter Plan of Treatment Upcoming Encounters Date Type Department Care Team (Late st Contact Info) Description 07/23/2024 9:00 AM CDT Office Visit [facility] Family & Internal Medicine [facility] [address] [place] [address] [place] [address] [facility] [employer]. [address] [place] [address] documented as of this encounter Visit Diagnoses Not on filedocumented in this encounter Additional Health Concerns Assessment Noted Time PHQ-9 Depression Total Score: 8 12/04/19 23 11:13 AM CDT documented as of this encounter Care Teams Helmet Coverer Relationship Specialty [place] [address] [facility] [employer]. [address] [place] [address] PCP - General FAMILY PRACTICE 06/01/21 documented as of this encounter
--- OUTSIDE RECORDS SUMMARY | 2024-02-01 17:00 | XMS_ITS | Encounter Summary ---
Author Organization [facility] Address [facility] [place] [address] [place] [address] Care Team Providers Care Lidder Name Role Phone Stefania Bean MD Primary Care Provider [phone] Reason for Visit * Reason Comments Medication Management Pt states medicati ons have not been helping. Encounter Details Date Type Department Care Team (Late st Contact Info) Description 09/09/2023 2:40 PM CDT Office Visit [facility] Family & Internal Medicine [facility] [id number] [place] [address] [place] [id number] [place] [address]. [address] [place] [address] Medication Management (Pt states medications have not been helping. ) Social History Tobacco Use Types Packs/Day [...] Sign Reading Time Taken Comments Blood Pressure 153/86 09/09/2023 3:09 PM CDT Pulse 67 09/09/2023 2:43 PM CDT Temperature 36.9 ??C (98.5 ??F) 09/09/2023 2:43 PM CD T Respiratory Rate 14 09/09/2023 2:43 PM CDT Oxygen Saturation 96% 09/09/2023 2:43 PM CDT Inhaled Oxygen Concentration - - Weight 106.6 kg (235 lb) 09/09/2023 2:43 PM CDT Height 180.3 cm (5' 11 ) 09/09/2023 2:43 PM CDT Body Mass Index 32.78 09/09/2023 2:43 PM CDT documented in this encounter Patient Instructions * Patient Instructions* Stefania Bean MD - 09/09/2023 2:40 PM CDT The [facility]ight?? Psychotropic test documented in this encounter Progress Notes * Stefania Bean MD - 09/09/2023 2:40 PM CDT Reason for Visit: Medication Management (Pt states medications have not been helping. ) History of Present Illness: HPI Mr. Mio Bernard is a pleasant 48 year old Male with PMH of dysthymia, hx of prediabetes , gender identity DISORDER AND depression was seen today for med adjustment. Patient would like to address ongoing depression and sleep issues, and to discuss his current medication regimen. Reports feeling unsettled and down after issues at work today. - Has not been able to see the psychiatrist he planned to see in July due to lack of response, but is now in contact with another provider named Skyla in [place]. - Mood has not been great; believes his medications are notworking. - Currently taking Lexapro, Wellbutrin, and Trazodone as prescribed. - Main struggle is depression,not anxiety; has had trouble sleeping for the last few weeks and takes about an hour to fall asleep. - Feels unmotivated and has low energy, only motivated to go to work. - Appetite fluctuates; some days no desire to eat, other days overeats due to depression, resulting in weight gain. - Continues to see a therapist who does individual and marriage counseling. - Reports thoughts of not wanting tolive but does not have thoughts of hurting himself or others. - Very close to his children but lacks close friendships or extended family connections. - Relationship with has improved slightly but still has challenges. No other concerns for today. ROS: Review of Systems Constitutional: Negative for activity change, appetite change, fatigue and fever. HENT: Negative for congestion, rhinorrhea, sinus pressure, sneezing and sore throat. Eyes: Negative for visual disturbance. Respiratory: Negative for cough and shortness of breath. Cardiovascular: Negative for chest pain and palpitations. Gastrointestinal: Negative for abdominal pain, constipation and diarrhea. Endocrine: Negative for polyuria. Genitourinary: Negative for dysuria and hematuria. Musculoskeletal: Negative for arthralgias and myalgias. Neurological: Negative for dizziness, syncope and numbness. Psychiatric/Behavioral: Positive for sleep disturbance. Negative for behavioral problems. Depression Medications: Current Outpatient Medications: buPROPion XL (WELLBUTRIN XL) 150 MG 24 hr tablet, Take 1 tablet (150 mg total) by mouth every morning., Disp: 30 tablet, Rfl: 5 traZODone (DESYREL) 50 MG tablet, Take 1 tablet (50 mg total) by mouth nightly at bedtime., Disp: 30 tablet, Rfl: 2 vitamin D2, ergocalciferol, (DRISDOL) 1.25 mg capsule, 50,000 units weekly for 12 weeks. Continue vitamin D 1,000 units for 3 to 6 months after this date. (Patient taking differently: Take 1,000 Units by mouth daily. 50,000 units weekly for 12 weeks. Continue vitamin D 1,000 units for 3 to 6 monthsafter this date.), Disp: 12 capsule, Rfl: 0 Review of patient's allergies indicates: No Known Allergies Past Medical History: Diagnosis Date Allergy seasonal COVID-19 12/2019 Depression Gender dysphoria Sleep apnea Past Surgical History: Procedure Laterality Date COLONOSCOPY N/A 08/26/2023 Colonoscopy with polypectomy performed by Harvey Pradhan MD at [facility] OR Social History Socioeconomic History Marital status: Tobacco [...] History Problem Relation Name Age of Onset Heart Disease Other family history Family Status Relation Name Status Mother Alive Father Other family history Alive No partnership data on file Physical Exam Vitals reviewed. Constitutional: Appearance: Normal appearance. He is obese. HENT: Head: Normocephalic. Eyes: Conjunctiva/sclera: Conjunctivae normal. Cardiovascular: Rate and [...] time. Mental status is at baseline. Psychiatric: Mood and Affect: Mood normal. Behavior: Behavior normal. Filed Vitals: 09/09/23 1443 09/09/23 1509 BP: (!) 174/91 (!) 153/86 Pulse: 67 Resp: 14 Temp: 98.5 ??F (36.9 ??C) TempSrc: Temporal SpO2: 96% Weight: 106.6 kg (235 lb) Height: 1.803 m (5' 11 ) Diagnoses/Impression: 1. Moderate episode of recurrent major depressive disorder ([facility]) traZODone (DESYREL) 50MG tablet 2. Gender identity disorder, unspecified 3. Elevated blood pressure reading Recommendations and Plan: Phq9 18 today MADHAV x 7 today Discussed with patient today. Depression is chronic and uncontrolled. Denies any suicidal or homicidal thoughts or ideations or plans. - Increase Trazodone from 25 mg to 50 mg to help with sleep and mood. - Discontinue Lexapro. - Continue Wellbutrin. - Check blood pressure again today and recheck next month during the follow-up visit with blood work. - Discuss with about considering genetic testing for medication (gene psychotropic test) to help tailor antidepressant therapy. Check online for this testing - Continue with therapy sessions and follow up on the appointment with the new psychiatrist. Follow-up next month as scheduled. Earlier if needed. He voiced understanding and agrees with the plan. All questions answered. Orders Placed This Encounter traZODone (DESYREL) 50 MG tablet Reviewed and updated this visit by provider: Stefania Bean MD Referring Provider: No ref. provider found PCP: Stefania Bean MD documented in this encounter Plan of Treatment Upcoming Encounters Date Type Department Care Team (Late st Contact Info) Description 07/23/2024 9:00 AM CDT Office Visit [facility] Family & Internal Medicine - [place] [address] [place] [address] [place] [address] [facility] [place] [address] documented as of this encounter Visit Diagnoses Diagnosis Moderate episode of recurrent major depressive disorder ([facility])- Primary Gender identity disorder, unspecified Elevated blood pressure reading Elevated blood pressure reading without diagnosis of hypertension documented in this encounter Additional Health Concerns Assessment Noted Time PHQ-9 Depression Total Score: 18 024 3:11 PM CDT documented as of this encounter Care Teams Lidder Relationship Specialty [place] [address] [facility] [employer]. [address] [place] [phone] PCP - General FAMILY PRACTICE 06/01/21 documented as of this encounter
--- OUTSIDE RECORDS SUMMARY | 2024-02-01 17:00 | XMS_ITS | Encounter Summary ---
Author Organization [facility] Address [facility] [place] [address] [place] [address] Care Team Providers Care Electrician Second Name Role Phone Stefania Bean MD Primary Care Provider [phone] Reason for Visit * Reason Onset Date Comments Results 09/06/2023 Encounter Details Date Type Department Care Team (Late st Contact Info) Description 09/06/2023 Telephone [facility] Multispecialty Care - [facility] [address] [facility], [address] [place] [address] Harvey Pradhan MD 3 [facility] [address] [place] [address] Results Social History Tobacco Use Types Packs/Day Years [...] as of this encounter Progress Notes * Caridad Cook LPN - 09/07/2023 11:34 AM CDT Pt called and notified of results * Caridad Cook LPN - 09/06/2023 2:50 PM CDT Attempted to call with results. VM left to r/c to office. Reminder placed * Caridad Cook LPN - 09/06/2023 2:50 PM CDT ----- Message from Dr. Harvey Pradhan sent at 09/01/2023 9:29 AM CDT ----- Your colon polyp was a benign hyperplastic polyp. These have no malignant potential. Repeat colonoscopy in 10 years. documented in this encounter Plan of Treatment Upcoming Encounters Date Type Department Care Team (Late st Contact Info) Description 07/23/2024 9:00 AM CDT Office Visit [facility] Family & Internal Medicine [address] [address] [place] [address] [facility] [address] [place] [address] documented as of this encounter Visit Diagnoses Not on filedocumented in this encounter Additional Health Concerns Assessment Noted Time PHQ-9 Depression Total Score: 8 12/04/19 23 11:13 AM CDT documented as of this encounter Care Teams Electrician Second Relationship Specialty [place] [address] [facility] [place] [address] PCP - General FAMILY PRACTICE 06/01/21 documented as of this encounter
--- OUTSIDE RECORDS SUMMARY | 2024-02-01 17:00 | XMS_ITS | Encounter Summary ---
Author Organization [facility] Address [facility] [facility] [place] [address] [place] [address] Care Team Providers Care Soil Expert Name Role Phone Stefania Bean MD Primary Care Provider [phone] Reason for Visit * Reason Comments Medication Management Encounter Details Date Type Department Care Team (Late st Contact Info) Description 10/12/2023 4:20 PM CDT [facility] Family [facility] Internal Medicine [facility] [id number] [place] [address] [place] [address] [facility]. [address] [place] [address] Medication Management Social History Tobacco Use Types Packs/Day Years [...] Sign Reading Time Taken Comments Blood Pressure 145/87 10/12/2023 4:14 PM CDT Pulse 76 10/12/2023 4:14 PM CDT Temperature 36.4 ??C (97.5 ??F) 10/12/2023 4:14 PM CD T Respiratory Rate 16 10/12/2023 4:14 PM CDT Oxygen Saturation 96% 10/12/2023 4:14 PM CDT Inhaled Oxygen Concentration - - Weight 105.2 kg (232 lb) 10/12/2023 4:14 PM CDT Height 180.3 cm (5' 11 ) 10/12/2023 4:14 PM CDT Body Mass Index 32.36 10/12/2023 4:14 PM CDT documented in this encounter Progress Notes * Stefania Bean MD - 10/12/2023 4:20 PM CDT Reason for Visit: Medication Management History of Present Illness: HPI Mr. Mio Bernard is a pleasant 48 year old Male with PMH of dysthymia, hx of prediabetes , gender identity DISORDER AND depression was seen for 3 month follow up. The patient presents for follow-up regarding missed blood work and ongoing management of depression, including recent initiation of Transcranial Magnetic Stimulation (TMS). Subjective: - Patient reports a mild headache likely related to TMS treatment, which started this week. - Patient's sleep schedule is disrupted due to work hours. - Currently taking Wellbutrin and Trazodone. - Reports no chestpain, dizziness, or severe headaches. ROS: Review of Systems Medications: Current Outpatient Medications: buPROPion XL (WELLBUTRIN [...] polypectomy performed by Harvey Pradhan MD at [facility] OR Social History Socioeconomic History Marital [...] history Alive No partnership data on file PHYSICAL EXAM Filed Vitals: 10/12/23 1614 BP: (!) 145/87 Pulse: 76 Resp: 16 Temp: 97.5 ??F (36.4 ??C) TempSrc: Temporal SpO2: 96% Weight: 105.2 kg (232 lb) Height: 1.803 m (5' 11 ) Diagnoses/Impression: 1. Moderate episode of recurrent major depressive disorder ([facility]) traZODone (DESYREL) 50MG tablet buPROPion XL (WELLBUTRIN XL) 150 MG 24 hr tablet Recommendations and Plan: - Depression - Headache likely secondary to TMS Plan: - Continue current medications: Wellbutrin and Trazodone. - Schedule blood work for either this Tuesday or next week. - Follow up in three months.- Nurse to investigate and process genetic testing for psychiatric medications. - Monitor and evaluate the effectiveness of TMS therapy over the next several weeks. Orders Placed This Encounter traZODone (DESYREL) 50 MG tablet buPROPion XL (WELLBUTRIN XL) 150 MG 24 hr tablet Reviewed and updated this visit by provider: Stefania Bean MD Referring Provider: No ref. provider found PCP: Stefania Bean MD documented in this encounter Plan of Treatment Upcoming Encounters Date Type Department Care Team (Late st Contact Info) Description 07/23/2024 9:00 AM CDT [facility] Family & Internal Medicine [address] [phone] Stefania Bean MD [address] [place] [address] [address] [place] [address] documented as of this encounter Visit Diagnoses Diagnosis Moderate episode of recurrent major depressive disorder (CMS/HCC [facility]/HCC) documented in this encounter Additional Health Concerns Assessment Noted Time PHQ-9 Depression Total Score: 18 09/08/ 024 3:11 PM CDT documented as of this encounter Care Teams Soil Expert Relationship Specialty [place] [address] [place] [address] PCP - General FAMILY PRACTICE 06/01/21 documented as of this encounter
--- OUTSIDE RECORDS SUMMARY | 2024-02-01 17:01 | XMS_ITS | Encounter Summary ---
Author Organization [facility] Address [address] [place] [address]. [place] [address] [place] [address] Care Team Providers Care Event Planning Manager Name Role Phone Stefania Bean MD Primary Care Provider Encounter Details Date Type Department Care Team (Late st Contact Info) Description 01/11/2022 Orders Only [facility] Family & Internal [facility] [id number] [place] [phone] [place] [id number] [place] [address] Social History Tobacco Use Types Packs/Day Years Used Date Smoking Tobacco: Never Smokeless Tobacco: Never Alcohol Use Standard Drinks/Week Comments Not Currently 0 (1 standard drink = 0.6 oz pur e alcohol) PHQ-2 Answer Date Recorded PHQ-2 Score - If the patient scores above 3, please move on to questions 3-9 6 12/30/2021 Sex and Gender Information Value Date Recorded Sex Assigned at Not on file Legal Sex Male 9:21 AM CDT Gender Identity Not on file Sexual Orientation Not on file COVID-19 Exposure Response Date Recorded In the last 10 days, have yo u been in contact with someone who was confirmed or suspected to have Coronavirus/COVID-19? No / Unsure 12/30/2021 9:46 AM TUB ATTENDANT documented as of this encounter Plan of Treatment Upcoming Encounters Date Type Department Care Team (Late st Contact Info) Description 07/23/2024 9:00 AM CDT Office Visit [facility] Family & Internal Medicine [facility] [address] [place] [address] [place] [address] [place] [address] documented as of this encounter Visit Diagnoses Diagnosis Vitamin D deficiency- Primary Unspecified vitamin D deficiency Medication management Encounter for long-term (current) use of other medications documented in this encounter Additional Health Concerns Assessment Noted Time PHQ-9 Depression Total Score: 11 022 9:55 AM TUB ATTENDANT documented as of this encounter Care Teams Event Planning Manager Relationship Specialty [place] [address] [place] [address] PCP - General FAMILY PRACTICE 06/01/21 documented as of this encounter
--- OUTSIDE RECORDS SUMMARY | 2024-02-01 17:01 | XMS_ITS | Encounter Summary ---
Author Organization [facility] Address [facility] [place] [address] [place] [address] Care Team Providers Care Semiconductors Wafer Breaker Name Role Phone Stefania eBan MD Primary Care Provider [phone] Reason for Visit * Reason Onset Date Comments Information 08/04/2023 Encounter Details Date Type Department Care Team (Late st Contact Info) Description 08/04/2023 Telephone [facility] Multispecialty Care - [facility] [address] [facility] [address] [place] [address] Harvey Pradhan MD 3 [facility] [address] [place] [address] Information Social History Tobacco Use Types Packs/Day Years [...] as of this encounter Progress Notes * Pallavi Esquivel MA - 08/04/2023 10:38 AM CDT Called and LM for patient to return call. [employer] is showing that it is no longer active as of 07/16/2023. Patient is scheduled for colonoscopy on 08/26/2023 so I need to get updated INS to get PA for the procedure. documented in this encounter Plan of Treatment Upcoming Encounters Date Type Department Care Team (Late st Contact Info) Description 07/23/2024 9:00 AM CDT Office Visit [facility] Group Family & Internal Medicine [facility] [address] [place] [address] [place] [address] [facility]. [address] [place] [address] documented as of this encounter Visit Diagnoses Not on filedocumented in this encounter Additional Health Concerns Assessment Noted Time PHQ-9 Depression Total Score: 8 12/04/19 23 11:13 AM CDT documented as of this encounter Care Teams Semiconductors Wafer Breaker Relationship Specialty Start [place] [address] [facility] [place] [address] PCP - General FAMILY PRACTICE 06/01/21 documented as of this encounter
--- OUTSIDE RECORDS SUMMARY | 2024-02-01 17:01 | XMS_ITS | Encounter Summary ---
Author Organization [facility] Address [facility] [place] [address] [place] [address] Care Team Providers Care Electrophysiology Nurse Practitioner Name Role Phone Jalen Coughlin MD Primary Care Provider [phone] Reason for Visit * Reason Comments New Patient establish care Fatigue Pt wants to discuss feeling of being fatigue, Pt states symptom has been going on for about a year Encounter Details Date Type Department Care Team (Late st Contact Info) Description 08/25/2020 10:00 AM CDT Office Visit [facility] Family & Internal Medicine [facility] [id number] [place] [phone] Jalen Coughlin MD [address] [facility] [address] [phone] New Patient (establish care); Fatigue (Pt wants to discuss feeling of being fatigue, Pt states symptom has been going on for about a year ) Social History Tobacco Use Types Packs/Day Years Used Date Smoking Tobacco: Never Smokeless Tobacco: Never Alcohol Use Standard Drinks/Week Comments Not Currently 0 (1 standard drink = 0.6 oz pur e alcohol) PHQ-2 Answer Date Recorded PHQ-2 Score - If the patient scores above 3, please move on to questions 3-9 4 08/25/2020 Sex and Gender Information Value Date Recorded Sex Assigned at Not on file Legal Sex Male 9:21 AM CDT Gender Identity Not on file Sexual Orientation Not on file COVID-19 Exposure Response Date Recorded In the last month, have you been in contact with someone who was confirmed or suspected to have Coronavirus / COVID-19? No / Unsure 08/25/2020 9:49 AM CDT documented as of this encounter Last Filed Vital Signs Vital Sign Reading Time Taken Comments Blood Pressure 142/74 08/25/2020 10:47 AM CDT Pulse 67 08/25/2020 9:54 AM CDT Temperature 36.6 ??C (97.8 ??F) 08/25/2020 9:54 AM CD T Respiratory Rate 16 08/25/2020 9:54 AM CDT Oxygen Saturation 97% 08/25/2020 9:54 AM CDT Inhaled Oxygen Concentration - - Weight 110.7 kg (244 lb) 08/25/2020 9:54 AM CDT Height 180.3 cm (5' 11 ) 08/25/2020 9:54 AM CDT Body Mass Index 34.03 08/25/2020 9:54 AM CDT documented in this encounter Patient Instructions * Patient Instructions* Jalen Coughlin MD - 08/25/2020 10:00 AM CDT Basim, Thank you for your visit. We will call with any concerning results. If you have a [employer] account, your results will appear there. If not, we will mail a copy for your records. Use medications as prescribed. See additional handout regarding area counselors For stress reduction resources, please review the following website: [email or web address]/ As you exit, please stop at the front load trash truck driver and schedule your follow-up appointment. Return in about 3 months (around 11/25/2020). Call with any concerns. Healthy adult recommendations: Focus on a healthy diet, with exercise as tolerated, targeting 30-60minutes of exercise daily, at least 5 days per week. Have a good day! documented in this encounter Progress Notes * Jalen Coughlin MD - 08/25/2020 10:00 AM CDT REASON FOR VISIT/CHIEF COMPLAINT New Patient (establish care) and Fatigue (Pt wants to discuss feeling of being fatigue, Pt states symptom has been going on for about a year ) Mio Bernard is a pleasant 45-year-old male, here to establish with our practice. He has hadno recent primary care provider.. Last labwork was remote. HISTORY OF PRESENT ILLNESS: Chief complaint and nursing note reviewed above. Basim presents to establish, with a relatively unremarkable past medical history, significant only for an episode of dysthymia several years ago, treated for short-term (1 to 2 years) with fluoxetine,as well as history of obstructive sleep apnea diagnosed 6 to 8 years ago, with use of CPAP for 2 to3 years. Patient reports he stopped using it as it seemed to cause him more difficulties with sleep. He has not used it in the past 5 years. Patient did have physical examination in his workplace 2 months ago, with some decreased hearing noted, as well as some presbyopia. He does have some intermittent numbness to his fingers. He and his family had Covid infection this past . Current concerns include increased fatigue, tiredness, sluggishness, irritability, similar to when he was diagnosed with dysthymia has some time ago. He does report working a swing shift at the [employer], a demanding job, and has some difficulty switching from nights to days and vice versa. PAST MEDICAL, SURGICAL, FAMILY AND SOCIAL HISTORIES were reviewed in detail and the computerized patient record updated as needed. Past Medical History Past Medical History: Diagnosis Date ??? Allergy seasonal ??? COVID-19 12/2019 ??? Depression ??? Sleep apnea History reviewed. No pertinent surgical history. Social History Social History Tobacco Use ??? Smoking status: Never Smoker ??? Smokeless tobacco: Never Used Substance Use Topics ??? Alcohol use: Not Currently Family History Family History Problem Relation Name Age of Onset ??? Heart Disease Other family history Allergy No Known Allergies Medication list No current outpatient medications on file as of 08/25/2020. REVIEW OF SYSTEMS: Patient currently denies fever, chills, or night sweats. No headache, ear or throat pain. No cough,chest pain or dyspnea. No abdominal pain, nausea, vomiting or diarrhea. No urinary tract symptoms. No skin lesions or rashes. No weakness or paresthesias except as noted above. No easy bruising or bleeding. VITAL SIGNS: Temp 97.8 ??F (36.6 ??C) (Temporal) BP (!) 142/74 Pulse 67 Resp 16 SpO2 97% Wt 110.7 kg (244 lb) BMI 34.03 kg/m?? PHYSICAL EXAMINATION: GENERAL: Well-developed and well-nourished, cooperative. Well-appearing, in no acute distress. SKIN: Normal color, warm & dry. Without lesions. HEAD: Normocephalic, without trauma. EENT: Extraocular movements intact, pupils equal, round, and reactive to light, sclerae anicteric, conjunctivae non-injected and without discharge; tympanic membranes clear with normal light reflex, in normal position; nasopharynx clear; oropharynx clear, oral mucosa moist, without lesions. Edentulous, with plates in place. NECK: Supple, without thyromegaly, lymphadenopathy, or masses. RESPIRATORY: Airway patent. No distress. Lungs clear to auscultation bilaterally; no wheezes, rales, or rhonchi. CARDIOVASCULAR: Heart tones regular in rhythm, without murmur; no gallops, clicks, or rubs. Peripheral pulses normal and symmetric to palpation. GASTROINTESTINAL: Abdomen soft, non-tender, non-distended, with normoactive bowel sounds; no organomegaly or masses. BACK: Normal curvature; no vertebral, costovertebral angle, or paraspinal tenderness to palpation. EXTREMITIES: Warm, without clubbing, cyanosis, or edema. NEUROLOGIC: Alert & oriented x 3; cranial nerves II through XII grossly intact, without focal deficits; no sensory or motor deficits; gait normal. MUSCULOSKELETAL: Normal range of motion. PSYCHOLOGIC: Affect appropriate. GENITOURINARY: Deferred. Labs: Old labs reviewed in Care Everywhere, from 2019. Imaging & Other Studies None. PHQ-9: Over the last two weeks, how often have you been bothered by any of the following problems? 08/25/2020 LITTLE INTEREST OR PLEASURE IN DOING THINGS 1-Several Days FEELING DOWN, DEPRESSSED,OR HOPELESS 3-Nearly every day PHQ2 DEPRESSION TOTAL SCORE 4 TROUBLE FALLING OR STAYING ASLEEP OR SLEEPING TOO MUCH 1-Several Days FEELING TIRED OR HAVING LITTLE ENERGY 3-Nearly every day POOR APPETITE OR OVEREATING 1-Several Days FEELING BAD ABOUT YOURSELF 2-More than half the days TROUBLE CONCENTRATING ON THINGS 0-Not at All MOVING OR SPEAKING SO SLOWLY THAT OTHER PEOPLE COULD HAVE NOTICED 0-Not at All THOUGHTS THAT YOU WOULD BE BETTER OFF 0-Not at All DEPRESSION SCREENING TOTAL SCORE 11 IF YOU CHECKED OFF ANY PROBLEMS Somewhat difficult MADHAV-7 (Generalized Anxiety Disorder) Screening MADHAV-7 08/25/2020 Feeling nervous, anxious and on edge 0 - not at all Not being able to stop or control worrying 0 - not at all Worrying too much about different things 0 - not at all Trouble Relaxing 0 - not at all Being so restless that it's hard to sit still 0 - not at all Becoming easily annoyed or irritable 2 - more than half the days Feeling afraid as if something awful might happen 1 - several days Total Score 3 If you checked off any problems, how difficult have those problems made it for you to do your work take care of things at home or get along with other people? not difficult at all Assessment & Plan 1. Fatigue, unspecified type 2. Dysthymia 3. Medication management Check routine lab work for evaluation of fatigue and potential dysthymia. Patient appears to be mildly to moderately depressed/dysthymic. Discussed options of restarting previous medication versus starting something new. Patient open to trial of sertraline, will start low-dose with indications for self titration. Patient to call with any concerns. Contact information provided as well for area counselors 4. Class 1 obesity due to excess calories without serious comorbidity with body mass index (BMI) of34.0 to 34.9 in adult Encouraged healthy diet and regular exercise as tolerated, targeting 30-60 minutes 5 out of 7 days. Medication Changes/Renewals & Orders: Orders Placed This Encounter ??? VENIPUNC ARM DRAW ??? COMPREHENSIVE METABOLIC PANEL ??? CBC, AUTO, NO DIFF ??? TSH W/REFLEX ??? sertraline 25 MG tablet Follow-up: Return in about 3 months (around 11/25/2020). Jalen Coughlin MD [facility] & Pediatric[facility] 08/25/2020 Portions of this note were dictated using [employer] speech recognition software. Occasional wrong wordor sound-alike substitutions may have occurred due to the inherent limitations of voice recognition software. Please read the chart carefully and recognize, using context, where the substitutions may have occurred. documented in this encounter Plan of Treatment Upcoming Encounters Date Type Department Care Team (Late st Contact Info) Description 07/23/2024 9:00 AM CDT Office Visit [facility] Family & Internal Medicine [facility] [address] [place] [address] [place] [address] [facility] [place] [address] documented as of this encounter Procedures Procedure Name Priority Date/Time Associated Diagnosis Comments VENIPUNC ARM DRAW Routine 08/25/2020 10:36 AM CDT Fatigue, unspecified type Dysthymia documented in this encounter Results * TSH W/REFLEX (08/25/2020 10:41 AM CDT) Pathologist [facility] TSH 0.744 0.358 - 3.74 uIU/ML 08/25/2020 3:13 PM CDT [facility] Comment: HIGH DOSES OF BIOTIN MAY INTERFERE WITH THIS TEST RESULT. CORRELATION TO CLINICAL HISTORY AND PRESENTATION RECOMMENDED. FREE T4 NOT INDICATED 08/25/2020 10:4 1 AM CDT us Jalen Coughlin MD LABORATORY Final Res ult [facility] [address] [place] [address], [place] [phone] * (ABNORMAL) CBC, AUTO, NO DIFF (08/25/2020 10:41 AM CDT) WBC 5.7 4.4 - 11.0 x10'3/uL 08/25/2020 2:23 PM CDT [facility] RBC 4.53 4.50 - 5.90 x10'6/uL 08/25/2020 2:23 PM CDT [facility] HGB 14.2 14.0 - 17.5 G/DL 08/25/2020 2:23 PM CDT [facility] HCT 43.1 41.5 - 50.4 % 08/25/2020 2:23 PM CDT [facility] MCV 95.1 80.0 - 96.0 FL 08/25/2020 2:23 PM CDT [facility] MCH 31.3 26.5 - 31.4 PG 08/25/2020 2:23 PM CDT [facility] MCHC 32.9 31.9 - 34.8 G/DL 08/25/2020 2:23 PM CDT [facility] RDW 12.0(L) 12.3 - 14.3 % 08/25/2020 2:23 PM CDT [facility] PLT 224 151 - 353 x10'3/uL 08/25/2020 2:23 PM CDT [facility] MPV 11.0 9.7 - 11.9 FL 08/25/2020 2:23 PM CDT [facility] 08/25/2020 10:4 1 AM CDT us Jalen Coughlin MD LABORATORY Final Res ult [facility] [address] [place] [address], * (ABNORMAL) COMPREHENSIVE METABOLIC PANEL (08/25/2020 10:41 AM CDT) GLUCOSE 194(H) 70 - 99 MG/DL 08/25/2020 3:13 PM CDT [facility] BUN 13 7 - 18 MG/DL 08/25/2020 3:13 PM CDT [facility] CREATININE S/P/B 1.19 0.7 - 1.3 MG/DL 08/25/2020 3:13 PM CDT [facility] SODIUM S/P/B 144 136 - 145 MMOL/L 08/25/2020 3:13 PM CDT [facility] POTASSIUM S/P/B 4.1 3.5 - 5.1 MMOL/L 08/25/2020 3:13 PM T [facility] CHLORIDE S/P/B 106 100 - 108 MMOL/L 08/25/2020 3:13 PM T [facility] CO2 29.5 21 - 32 MMOL/L 08/25/2020 3:13 PM T [facility] CALCIUM S/P/B 9.1 8.5 - 10.1 MG/DL 08/25/2020 3:13 PM T [facility] BILIRUBIN TOTAL S/P/B 0.3 0.2 - 1.2 MG/DL 08/25/2020 3:13 PM T [facility] TOTAL PROTEIN S/P/B 6.8 6.4 - 8.2 G/DL 08/25/2020 3:13 PM T [facility] ALBUMIN S/P/B 3.8 3.4 - 5.0 G/DL 08/25/2020 3:13 PM T [facility] AST 29 15 - 37 U/L 08/25/2020 3:13 PM T [facility] ALT 67(H) 16 - 60 U/L 08/25/2020 3:13 PM T [facility] ALKALINE PHOSPHATASE S/P/B 71 50 - 136 U/L 08/25/2020 3:13 PM T [facility] ANION GAP 8.5 5 - 15 MMOL/L 08/25/2020 3:13 PM T [facility] BUN CREATININE RATIO 10.9 6 - 26 08/25/2020 3:13 PM T [facility] A/G RATIO 1.3 1.0 - 2.0 RATIO 08/25/2020 3:13 PM CDT [facility] EGFR NON-AFR. AMER. 73(L) >90 ML/MIN/1.7 3 M2 08/25/2020 3:13 PM CDT [facility] EGFR AFR. AMER. 85(L) >90 ML/MIN/1.7 3 M2 08/25/2020 3:13 PM CDT [facility] Comment: NOTE: eGFR is not calculated for patients <18 years of age. This is an estimated GFR (CKD EPI) and should not be used for calculating drug doses. 08/25/2020 10:4 1 AM CDT us Jalen Coughlin MD LABORATORY Final Res ult [facility] [address] [place] [address], documented in this encounter Visit Diagnoses Diagnosis Fatigue, unspecified type- Primary Dysthymia Dysthymic disorder Medication management Encounter for long-term (current) use of other medications Class 1 obesity due to excess calories without serious comorbidity with body mass index (BMI) of 34.0 to 34.9 in adult Edentulous Anodontia documented in this encounter Additional Health Concerns Assessment Noted Time PHQ-9 Depression Total Score: 11 021 9:59 AM CDT documented as of this encounter Care Teams Electrophysiology Nurse Practitioner Relationship Specialty Start Date End Date Jalen Coughlin MD PCP - General INTERNAL MEDICINE 08/25/20 05/31/21 documented as of this encounter
--- OUTSIDE RECORDS SUMMARY | 2024-02-01 17:01 | XMS_ITS | Encounter Summary ---
Author Organization [facility] Address [address] [place] [address]. [place], [place] [id number] [place] [id number] Care Team Providers Care Shoelace Tipping Machine Operator Name Role Phone Lencho Bean MD Primary Care Provider [phone] Reason for Visit * Reason Comments Medication Management Medication managme nt Encounter Details Date Type Department Care Team (Late st Contact Info) Description 04/26/2022 3:40 PM CDT Office Visit [facility] Family & Internal Medicine [facility] [id number] [place] [phone] [place] [id number] [place] [address]. [address] [place] [address] Medication Management (Medication managment/) Social History Tobacco Use Types Packs/Day Years Used Date Smoking Tobacco: Never Smokeless Tobacco: Never Tobacco Cessation:Counseling Given: No Alcohol Use Standard Drinks/Week Comments Not Currently 0 (1 standard drink = 0.6 oz pur e alcohol) PHQ-2 Answer Date Recorded Patient Health Questionnaire-2 Score 4 04/26/2022 Sex and Gender Information Value Date Recorded Sex Assigned at Not on file Legal Sex Male 9:21 AM CDT Gender Identity Not on file Sexual Orientation Not on file COVID-19 Exposure Response Date Recorded In the last 10 days, have yo u been in contact with someone who was confirmed or suspected to have Coronavirus/COVID-19? No / Unsure 04/26/2022 3:33 PM CDT documented as of this encounter Last Filed Vital Signs Vital Sign Reading Time Taken Comments Blood Pressure 111/62 04/26/2022 3:38 PM CDT Pulse 80 04/26/2022 3:38 PM CDT Temperature 36.8 ??C (98.3 ??F) 04/26/2022 3:38 PM C DT Respiratory Rate 20 04/26/2022 3:38 PM CDT Oxygen Saturation 98% 04/26/2022 3:38 PM CDT Inhaled Oxygen Concentration - - Weight 106.1 kg (234 lb) 04/26/2022 3:38 PM CDT Height 180.3 cm (5' 11 ) 04/26/2022 3:38 PM CDT Body Mass Index 32.64 04/26/2022 3:38 PM CDT documented in this encounter Progress Notes * Lencho Bean MD - 04/26/2022 3:40 PM CDTAddended by: LENCHO BEAN on: 04/26/2022 05:26 PM Modules accepted: Level of Service * Lencho Bean MD - 04/26/2022 3:40 PM CDT Reason for Visit: Medication Management (Medication managment/) History of Present Illness: HPI Mr. Mio Bernard is a pleasant 46 year old Male with PMH of dysthymia was seen in office todayfor medication management. Patient states he is NOT doing well. He has been depressed in last 2 weeks. No motivation. No energy. Reduced sex drive. Gets lost in things. He has been compliant with medication. Sleep- difficulty going to sleep. Appetite- eating well. Gained weight since previously Mentions RLS before sleeping. denies anxiety. Denies new stressors. No other concerns for today. ROS: Review of Systems Constitutional: Negative for activity change, appetite change, fatigue and fever. HENT: Negative for congestion, rhinorrhea, sinus pressure, sneezing and sore throat. Hearing loss: Eyes: Negative for visual disturbance. Respiratory: Negative for cough and shortness of breath. Cardiovascular: Negative for chest pain and palpitations. Gastrointestinal: Negative for abdominal pain, constipation and diarrhea. Endocrine: Negative for polyuria. Genitourinary: Negative for dysuria and hematuria. Musculoskeletal: Negative for arthralgias, myalgias and general stiffness. Neurological: Negative for dizziness, tingling, syncope and numbness. Psychiatric/Behavioral: Positive for depression and sleep disturbance. Negative for behavioral problems. The patient is not nervous/anxious. Medications: Current Outpatient Medications: ??? traZODone (DESYREL) 50 MG tablet, Take 1 tablet daily at bedtime and then increase to 2 tabletsat bedtime if tolerating well., Disp: 60 tablet, Rfl: 2 ??? vitamin D2, ergocalciferol, (DRISDOL) 04791 UNITS capsule, Take 1 capsule (50,000 Units total) by mouth every 7 days., Disp: 12 capsule, Rfl: 0 ??? vitamin D2, ergocalciferol, 26277 UNITS capsule, Take 1 capsule (50,000 Units total) by mouth every 7 days., Disp: 12 capsule, Rfl: 0 No Known Allergies Past Medical History: Diagnosis Date ??? Allergy seasonal ??? COVID-19 12/2019 ??? Depression ??? Sleep apnea History reviewed. No pertinent surgical history. Social History Socioeconomic History ??? Marital status: Tobacco Use ??? Smoking status: Never ??? Smokeless tobacco: Never Vaping Use ??? Vaping Use: Never used Substance and Sexual Activity ??? Alcohol use: Not Currently ??? Drug use: Never Social History Narrative Lives with and family E-Cigarettes Questions Responses E-Cigarette Use Never User Family History Problem Relation Name Age of Onset ??? Heart Disease Other family history Family Status Relation Name Status ??? Mother Alive ??? Father ??? Other family history Alive Physical Exam Vitals reviewed. Constitutional: Appearance: Normal appearance. He is normal weight. HENT: Head: Normocephalic and atraumatic. Mouth/Throat: Mucous membranes are moist. Oropharynx is clear. Eyes: Conjunctiva/sclera: Conjunctivae normal. Cardiovascular: Rate and Rhythm: Normal rate and regular rhythm. Pulmonary: Effort: Pulmonary effort is normal. No respiratory distress. Breath sounds: Normal breath sounds. No wheezing. Musculoskeletal: Right lower leg: No edema. Left lower leg: No edema. Skin: General: Skin is warm. Neurological: General: No focal deficit present. Mental Status: He is alert and oriented to person, place, and time. Psychiatric: Mood and Affect: Mood is depressed. Mood is not anxious. Affect is not tearful. Speech: Speech normal. Behavior: Behavior normal. Thought Content: Thought content normal. Thought content is not paranoid or delusional. Thought content does not include homicidal or suicidal ideation. Thought content does not include homicidal or suicidal plan. Cognition and Memory: Cognition normal. Judgment: Judgment normal. MADHAV-7 (Generalized Anxiety Disorder) Screening 12/30/2021 10:00 AM 04/26/2022 3:40 PM MADHAV-7 Feeling nervous, anxious and on edge 1 - several days 2 - more than half the days Not being able to stop or control worrying 0 - not at all 0 - not at all Worrying too much about different things 0 - not at all 0 - not at all Trouble Relaxing 1 - several days 2 - more than half the days Being so restless that it's hard to sit still 0 - not at all 2 - more than half the days Becoming easily annoyed or irritable 3 - nearly every day 2 - more than half the days Feeling afraid as if something awful might happen 0 - not at all 1 - several days Total Score 5 9 If you checked off any problems, how difficult have those problems made it for you to do your work take care of things at home or get along with other people? somewhat difficult very difficult Calculated C-SSRS Risk Score (Lifetime/Recent): No Risk Indicated Filed Vitals: 04/26/22 1538 BP: 111/62 Pulse: 80 Resp: 20 Temp: 98.3 ??F (36.8 ??C) TempSrc: Temporal SpO2: 98% Weight: 106.1 kg (234 lb) Height: 5' 11 (1.803 m) Diagnoses/Impression: 1. Moderate episode of recurrent major depressive disorder (CMS/HCC) traZODone (DESYREL) 50 MG tablet Recommendations and Plan: Symptoms and exam concerning for major depression. Currently taking Zoloft with side effects and norelief. MADHAV 9 today --- I will start the patient on trazodone today. Discussed common side effects. ----Has pending apt with therapist next week. At this time patient feels safe at home. He denies any suicidal or homicidal thoughts or ideations.He has a strong support system. Follow-up in 6 to 8 weeks. Earlier if needed. He voiced understanding and agrees with the plan. Allquestions answered. Orders Placed This Encounter ??? traZODone (DESYREL) 50 MG tablet Reviewed and updated this visit by provider: Lencho Bean MD Referring Provider: No ref. provider found PCP: Lencho Bean MD documented in this encounter Plan of Treatment Upcoming Encounters Date Type Department Care Team (Late st Contact Info) Description 07/23/2024 9:00 AM CDT Office Visit [facility] Family & Internal Medicine - [place] [address] [place] [address] [place] [address] [facility]. [address] [place] [phone] documented as of this encounter Visit Diagnoses Diagnosis Moderate episode of recurrent major depressive disorder (CMS/HCC HHS/HCC)- Primary documented in this encounter Additional Health Concerns Assessment Noted Time PHQ-9 Depression Total Score: 16 023 3:40 PM CDT documented as of this encounter Care Teams Shoelace Tipping Machine Operator Relationship Specialty [place] [address] [facility]. [address] [place], [place] [id number] PCP - General FAMILY PRACTICE 06/01/21 documented as of this encounter
--- OUTSIDE RECORDS SUMMARY | 2024-02-01 17:01 | XMS_ITS | Encounter Summary ---
Author Organization [facility] Address [facility] [place] [address] [place] [address] Care Team Providers Care Telesales Professional Name Role Phone Stefania Bean MD Primary Care Provider [phone] Reason for Visit * Reason Onset Date Comments Medication 01/11/2022 Encounter Details Date Type Department Care Team (Late st Contact Info) Description 01/11/2022 Telephone [facility] Family & Internal Medicine [facility] [address] [place] [address] [place] [address] [facility]. [address] [place] [address] Medication Social History Tobacco Use Types Packs/Day Years [...] Coronavirus/COVID-19? No / Unsure 12/30/2021 9:46 AM MATTING PRESS TENDER documented as of this encounter Progress Notes * Ada Brown RN - 01/11/2022 4:18 PM CST Detailed message left for patient ING PRESS TENDER * Susan Herring - 01/11/2022 12:37 PM CST Basim returned call for lab results. Informed him about Vit D. Was this gong to be sent to his pharmacy? [facility]. No other questions regarding lab work at this time. ING PRESS TENDER documented in this encounter Plan of Treatment Upcoming Encounters Date Type Department Care Team (Late st Contact Info) Description 07/23/2024 9:00 AM CDT Office Visit [facility] Family & Internal Medicine [address] [address] [place] [address] [facility]. [address] [place] [address] [phone] documented as of this encounter Visit Diagnoses Not on filedocumented in this encounter Additional Health Concerns Assessment Noted Time PHQ-9 Depression Total Score: 11 022 9:55 AM MATTING PRESS TENDER documented as of this encounter Care Teams Telesales Professional Relationship Specialty Start [place] [address] [facility]. [address] [place] [address] [phone] PCP - General FAMILY PRACTICE 06/01/21 documented as of this encounter
--- OUTSIDE RECORDS SUMMARY | 2024-02-01 17:01 | XMS_ITS | Encounter Summary ---
Author Organization [facility] Address [facility]. [place], [place] [address] [place] [address] Care Team Providers Care Java Lead Name Role Phone Stefania Bean MD Primary Care Provider [phone] Reason for Visit * Reason Comments Medication Management Pt has question re garding medication prescribed by psychiatrist. Encounter Details Date Type Department Care Team (Late st Contact Info) Description 06/30/2023 4:40 PM CDT Office Visit [facility] Family & Internal Medicine [facility] [id number] [place] [phone] Stefania Bean [place] [id number] [place] [address]. [address] [place] [address] Medication Management (Pt has question regarding medication prescribed by psychiatrist. ) Social History Tobacco Use Types Packs/Day [...] Sign Reading Time Taken Comments Blood Pressure 153/88 06/30/2023 4:57 PM CDT Pulse 65 06/30/2023 4:37 PM CDT Temperature 36.6 ??C (97.9 ??F) 06/30/2023 4:37 PM CD T Respiratory Rate 18 06/30/2023 4:37 PM CDT Oxygen Saturation 95% 06/30/2023 4:37 PM CDT Inhaled Oxygen Concentration - - Weight 103 kg (227 lb) 06/30/2023 4:37 PM CDT Height 180.3 cm (5' 11 ) 06/30/2023 4:37 PM CDT Body Mass Index 31.66 06/30/2023 4:37 PM CDT documented in this encounter Progress Notes * Stefania Bean MD - 06/30/2023 4:40 PM CDT Reason for Visit: Medication Management (Pt has question regarding medication prescribed by psychiatrist. ) History of Present Illness: HPI Mr. Mio Bernard is a pleasant 48 year old Male with PMH of dysthymia, hx of prediabetes , gender identity DISORDER AND depression was seen in office today for follow-up and medication management. Therapy- he is seeing a new therapist Kinga Reza on Tuesday mornings. is seeing different therapist. Marriage counsellor- holding off at this time as it was not working. He established with a psychiatrist in April. This was telehealth VISIT. WAS started on wellbutrin. He is taking 1 tablet every other day. Given he was unable to get refills he has been taking medication every other day. He continues to take Lexapro. He is unsure if his medications are helping him.Mood is not any worse. Sleeps well. Trazodone helps. Will establish with new psychiatrist Dr. Primo Amin in July. No other concerns for today. ROS: Review [...] tingling, syncope and numbness. Psychiatric/Behavioral: Positive for depression. Negative for behavioral problems. Medications: Current Outpatient Medications: buPROPion XL (WELLBUTRIN XL) 150 MG 24 hr tablet, Take 1 tablet (150 mg total) by mouth every morning., Disp: 30 tablet, Rfl: 5 escitalopram (LEXAPRO) 20 MG tablet, Take 1 tablet (20 mg total) by mouth daily., Disp: 30 tablet, Rfl: 5 traZODone (DESYREL) 50 MG tablet, Take 0.5 tablets (25 mg total) by mouth nightly at bedtime., Disp: 15 tablet, Rfl: 5 vitamin D2, ergocalciferol, (DRISDOL) 1.25 mg capsule, 50,000 units weekly for 12 weeks. Continue vitamin D 1,000 units for 3 to 6 months after this date., Disp: 12 capsule, Rfl: 0 Review of patient's allergies indicates: No Known Allergies Past Medical History: Diagnosis Date Allergy seasonal COVID-19 12/2019 Depression Gender dysphoria Sleep apnea History reviewed. No pertinent surgical history. Social History Socioeconomic History Marital status: Tobacco [...] appearance. He is normal weight. HENT: Head: Normocephalic. Eyes: Conjunctiva/sclera: Conjunctivae normal. [...] Mood normal. Behavior: Behavior normal. Filed Vitals: 06/30/23 1637 06/30/23 1657 BP: (!) 141/82 (!) 153/88 Pulse: 65 Resp: 18 Temp: 97.9 ??F (36.6 ??C) TempSrc: Temporal SpO2: 95% Weight: 103 kg (227 lb) Height: 1.803 m (5' 11 ) Diagnoses/Impression: 1. Gender identity disorder, unspecified 2. Moderate episode of recurrent major depressive disorder (CMS/HCC [facility]/HCC) escitalopram (LEXAPRO)20 MG tablet buPROPion XL (WELLBUTRIN XL) 150 MG 24 hr tablet traZODone (DESYREL) 50 MG tablet CBC W/DIFF AUTOMATED COMPREHENSIVE METABOLIC PANEL 3. Vitamin D deficiency VITAMIN D, 25 [place] 4. Lipid screening LIPID PANEL 5. Elevated blood pressure reading Recommendations and Plan: Depression is chronic. Stable. Continue Lexapro and Wellbutrin. At this time patient has been taking Wellbutrin every other day so taking it regularly with improved symptoms. I would increase dose asneeded Continue therapy. Establishing with psychiatrist soon. Blood pressure continues to be borderline high. Patient was advised to monitor blood pressure readings at home and maintain a log. Close follow-up in 2 weeks as scheduled. Due for annual labs. He voiced understanding and agrees with the plan. All questions answered. Orders Placed This Encounter CBC W/DIFF AUTOMATED COMPREHENSIVE METABOLIC PANEL LIPID PANEL VITAMIN D, 25 [place] DISCONTD: buPROPion XL (WELLBUTRIN XL) 150 MG 24 hr tablet escitalopram (LEXAPRO) 20 MG tablet buPROPion XL (WELLBUTRIN XL) 150 MG 24 hr tablet traZODone (DESYREL) 50 MG tablet Reviewed and updated this visit by provider: Stefania Bean MD Referring Provider: No ref. provider found PCP: Stefania Bean MD documented in this encounter Plan of Treatment Upcoming Encounters Date Type Department Care Team (Late st Contact Info) Description 07/23/2024 9:00 AM CDT Office Visit [facility] Family & Internal Medicine [facility] [address] [place] [address] Stefania Bean MD [address] [place] [address]. [address] [place] [address] documented as of this encounter Procedures Procedure Name Priority Date/Time Associated Diagnosis Comments COMPREHENSIVE METABOLIC PANEL Routine 10/31/2023 8:42 AM CDT Moderate episode of recurrent major depressive disorder (CMS/HCC [facility]/HCC) LIPID PANEL Routine 10/31/2023 8:42 AM CDT Lipid screening CBC W/DIFF AUTOMATED Routine 10/31/2023 8:42 AM CDT Moderate episode of recurrent major depressive disorder (CMS/HCC [facility]/HCC) VITAMIN D, 25 OH Routine 10/31/2023 8:42 AM CDT Vitamin D deficiency documented in this encounter Results * (ABNORMAL) VITAMIN D, 25 [place] (10/31/2023 8:42 AM CDT) [facility] VITAMIN D 25 HYDROXY TOTAL S/P/B 19.7(L) >29.9 ng/mL [facility] Comment: This test was developed and its analytical performance characteristics have been determined by [facility]. It has not been cleared or approved by the U.S. Food and Drug Administration. This assay has been validated pursuant to the CLIA regulations and is used for clinical purposes. Vitamin D, 25-Hydroxy reports concentrations of two common forms, 25-OHD2 and 25-OHD3. 25-OHD3 indicates both endogenous production and supplementation. 25-OHD2 is an indicator of exogenous sources, such as diet or supplementation. Therapy is based on measurement of Total 25-OHD, with levels <20 ng/mL indicative of Vitamin D deficiency, while levels between 20 ng/mL and 30 ng/mL suggest insufficiency. Optimal levels are >=30 ng/mL. Vitamin D, 25-Hydroxy reports concentrations of two common forms, 25-OHD2 and 25-OHD3. 25-OHD3 indicates both endogenous production and supplementation. 25-OHD2 is an indicator of exogenous sources, such as diet or supplementation. Therapy is based on measurement of Total 25-OHD, with levels <20 ng/mL indicative of Vitamin D deficiency, while levels between 20 ng/mL and 30 ng/mL suggest insufficiency. Optimal levels are > or = 30 ng/mL. VITAMIN D 25 HYDROXY D3 S/P/B 19.7 ng/mL [facility] Comment: This test was developed and its analytical performance characteristics have been determined by [facility]. It has not been cleared or approved by the FDA. This assay has been validated pursuant to the CLIA regulations and is used for clinical purposes. VITAMIN D 25 HYDROXY D2 S/P/B <1.0 ng/mL [place] [facility] Comment: This test was developed and its analytical performance characteristics have been determined by [facility]. It has not been cleared or approved by the FDA. This assay has been validated pursuant to the CLIA regulations and is used for clinical purposes. 10/31/2023 8:42 AM CDT 11/01/2023 4:58 AM CDT Narrative Resulting Agency Comment Performing Organization Information: ?Site ID: [id number] ?Name: [facility] ?Address: [address] [place] [address] ?Director: Sukhdev Hartley PhD,[facility] Stefania Bean MD LABORATORY Final Result [facility] [address], [address] * (ABNORMAL) LIPID PANEL (10/31/2023 8:42 AM CDT) [facility] CHOLESTEROL 178 <200 mg/dL [place] HDL 40 > OR = 40 mg/dL [place] TRIGLYCERIDES 197(H) <150 mg/dL [facility] [place] LDL (CALCULATED) 106(H) mg/dL (calc) [place] Comment: Reference range: <100 Desirable range <100 mg/dL for primary prevention; ?? <70 mg/dL for patients with CHD or diabetic patients with > or = 2 CHD risk factors. LDL-C is now calculated using the Tahmina calculation, which is a validated novel method providing better accuracy than the Friedewald equation in the estimation of LDL-C. David KING et al. YONATHAN. 2013;310(19): 4209-8494 (http://education.Fitnet.Couchbase/faq/IAK112) CHOL/HDL RATIO 4.5 <5.0 (calc) [place] NON HDL CHOLESTEROL 138(H) <130 mg/dL (calc) [place] Comment: For patients with diabetes plus 1 major ASCVD risk factor, treating to a non-HDL-C goal of <100 mg/dL (LDL-C of <70 mg/dL) is considered a therapeutic option. 10/31/2023 8:42 AM CDT 11/01/2023 12:39 AM CDT Narrative Resulting Agency Comment Performing Organization Information: ?Site ID: [id number] ?Name: [facility] ?Address: [address] [place] [phone] ?Director: Calvin Gunn Stefania Bean MD LABORATORY Final Result [facility] [place] [facility] [address] [phone], * (ABNORMAL) COMPREHENSIVE METABOLIC PANEL (10/31/2023 8:42 AM CDT) GLUCOSE 104(H) 65 - 99 mg/dL [place] Comment: ? Fasting reference interval For someone without known diabetes, a glucose value between 100 and 125 mg/dL is consistent with prediabetes and should be confirmed with a follow-up test. BUN 13 7 - 25 mg/dL [place] CREATININE S/P/B 1.06 0.60 - 1.29 mg/dL [place] GFR ESTIMATE 87 > OR = 60 mL/min/1. 73m2 [place] BUN CREATININE RATIO SEE NOTE: (calc) [place] Comment: ?? Not Reported: BUN and Creatinine are within ?? reference range. ? SODIUM S/P/B 140 135 - 146 mmol/L [place] POTASSIUM S/P/B 4.6 3.5 - 5.3 mmol/L [place] CHLORIDE S/P/B 102 98 - 110 mmol/L [place] CO2 33(H) 20 - 32 mmol/L [place] CALCIUM S/P/B 9.5 8.6 - 10.3 mg/dL [place] TOTAL PROTEIN S/P/B 7.1 6.1 - 8.1 g/dL [place] ALBUMIN S/P/B 4.6 3.6 - 5.1 g/dL [place] GLOBULIN 2.5 1.9 - 3.7 g/dL (calc) [place] ALBUMIN/GLOBULIN RATIO 1.8 1.0 - 2.5 (calc) [place] BILIRUBIN TOTAL S/P/B 0.6 0.2 - 1.2 mg/dL [place] ALKALINE PHOSPHATASE S/P/B 68 36 - 130 U/L [place] AST 20 10 - 40 U/L [place] ALT 42 9 - 46 U/L [place] 10/31/2023 8:42 AM CDT 11/01/2023 12:39 AM CDT Narrative Resulting Agency Comment Performing Organization Information: ?Site ID: ?Name: [facility] ?Address: [facility] [place] [address] ?Director: Calvin Gunn us Stefania Bean MD LABORATORY Final Result [facility] [place] [id number] [place] [phone], * CBC W/DIFF AUTOMATED (10/31/2023 8:42 AM CDT) WBC 6.4 3.8 - 10.8 Thousand/u L [place] RBC 4.90 4.20 - 5.80 Million/uL [facility] [place] HGB 15.4 13.2 - 17.1 g/dL [place] HCT 47.7 38.5 - 50.0 % [place] MCV 97.3 80.0 - 100.0 fL [place] MCH 31.4 27.0 - 33.0 pg [place] MCHC 32.3 32.0 - 36.0 g/dL [place] RDW 12.4 11.0 - 15.0 % [place] PLT 244 140 - 400 Thousand/u L [place] MPV 10.6 7.5 - 12.5 fL [place] ABS. NEUTROPHILS 3,987 1,500 - 7,800 cells/uL [place] ABS. LYMPHOCYTES 1,728 850 - 3,900 cells/uL [place] ABS. MONOCYTES 422 200 - 950 cells/uL [place] ABS. EOSINOPHILS 211 15 - 500 cells/uL [place] ABS. BASOPHILS 51 0 - 200 cells/uL [place] SEG NEUTROPHILS 62.3 % [facility] [place] LYMPHOCYTES 27.0 % [place] MONOCYTES 6.6 % [place] EOSINOPHILS 3.3 % [place] BASOPHILS 0.8 % [place] 10/31/2023 8:42 AM CDT 11/01/2023 12:39 AM CDT Narrative Resulting Agency Comment Performing Organization Information: ?Site ID: [id number] ?Name: [facility] ?Address: [facility] [place] [address] ?Director: Calvin Gunn us Stefania Bean MD LABORATORY Final Result [facility] [facility] [address] [phone] documented in this encounter Visit Diagnoses Diagnosis Gender identity disorder, unspecified- Primary Moderate episode of recurrent major depressive disorder ([facility]/HCC [facility]/HCC) Vitamin D deficiency Unspecified vitamin D deficiency Lipid screening Screening for lipoid disorders Elevated blood pressure reading Elevated blood pressure reading without diagnosis of hypertension documented in this encounter Additional Health Concerns Assessment Noted Time PHQ-9 Depression Total Score: 8 12/04/19 23 11:13 AM CDT documented as of this encounter Care Teams Java Lead Relationship Specialty [place] [address] [facility] [address] [place] [address] PCP - General FAMILY PRACTICE 06/01/21 documented as of this encounter
--- OUTSIDE RECORDS SUMMARY | 2024-02-01 17:01 | XMS_ITS | Encounter Summary ---
Author Organization [facility] Address [facility] [place] [address] [place] [address] Care Team Providers Care Battery Tester Field Name Role Phone Stefania Bean MD Primary Care Provider [phone] Reason for Visit * Reason Comments Anxiety Depression Pt states the sertra line isnt working for him Encounter Details Date Type Department Care Team (Late st Contact Info) Description 12/30/2021 10:00 AM LEAD QUALITY TECHNICIAN Office Visit [facility] Family & Internal Medicine [address] [address] Stefania Bean MD [address] [place] [address]. [address] [place] [address] Anxiety; Depression (Pt states the sertraline isnt working for him ) Social History Tobacco Use Types Packs/Day [...] Coronavirus/COVID-19? No / Unsure 12/30/2021 9:46 AM LEAD QUALITY TECHNICIAN documented as of this encounter Last Filed Vital Signs Vital Sign Reading Time Taken Comments Blood Pressure 139/79 12/30/2021 9:54 AM LEAD QUALITY TECHNICIAN Pulse 56 12/30/2021 9:54 AM LEAD QUALITY TECHNICIAN Temperature 36.7 ??C (98.1 ??F) 12/30/2021 9:54 AM CS T Respiratory Rate 20 12/30/2021 9:54 AM LEAD QUALITY TECHNICIAN Oxygen Saturation 100% 12/30/2021 9:54 AM LEAD QUALITY TECHNICIAN Inhaled Oxygen Concentration - - Weight 100 kg (220 lb 6.4 oz) 12/30/2021 9:54 AM LEAD QUALITY TECHNICIAN Height 180.3 cm (5' 11 ) 12/30/2021 9:54 AM LEAD QUALITY TECHNICIAN Body Mass Index 30.74 12/30/2021 9:54 AM LEAD QUALITY TECHNICIAN documented in this encounter Progress Notes * Stefania Bean MD - 12/30/2021 10:00 AM CST Reason for Visit: Anxiety and Depression (Pt states the sertraline isnt working for him ) History of Present Illness: HPI Mr. Mio Bernard is a pleasant 46 year old Male with PMH of dysthymia was seen today for depression, He was on sertraline for dysthymia. He has been taking sertraline. Over the last 2 months feeling bad. States he is - Sluggish, does not care. Down. More irritable. Sleep- good, except for work schedule. Denies anxiety or panics. Appetite good Eating better and trying to loose weight. Exercises regularly Hx of counselling long time ago Finished high dose Vitamin D. Taking OTC supplement now. HE DOES SEE GI DR. BECK No other concerns for today,. ROS: Review of Systems Constitutional: Positive for activity change and fatigue. Negative for appetite change and fever. HENT: Negative for congestion, rhinorrhea, [...] Psychiatric/Behavioral: Positive for depression. Negative for behavioral problems and sleep disturbance. The patient is not nervous/anxious. Medications: Current Outpatient Medications: ??? sertraline (ZOLOFT) 50 MG tablet, Take 2 tablets (100 mg total) by mouth daily., Disp: 60 tablet, Rfl: 2 ??? vitamin D2, ergocalciferol, 26523 UNITS capsule, Take 1 capsule (50,000 Units [...] normal weight. HENT: Head: Normocephalic and atraumatic. Eyes: Conjunctiva/sclera: Conjunctivae normal. Cardiovascular: Rate and [...] Mood is depressed. Mood is not anxious. Behavior: Behavior normal. Thought Content: Thought content does not include homicidal or suicidal ideation. Thought content does not include homicidal or suicidal plan. MADHAV-7 (Generalized Anxiety Disorder) Screening 08/25/2020 12/30/2021 MADHAV-7 Feeling nervous, anxious and on edge 0 - not at all 1 - several days Not being able to stop or control worrying 0 - not at all 0 - not at all Worrying too much about different things 0 - not at all 0 - not at all Trouble Relaxing 0 - not at all 1 - several days Being so restless that it's hard to sit still 0 - not at all 0 - not at all Becoming easily annoyed or irritable 2 - more than half the days 3 - nearly every day Feeling afraid as if something awful might happen 1 - several days 0 - not at all Total Score 3 5 If you checked off any problems, how difficult have those problems made it for you to do your work take care of things at home or get along with other people? not difficult at all somewhat difficult Multiple values from one day are sorted in reverse-chronological order PHQ-2 Score PHQ-2 Score: 6 Filed Vitals: 12/30/21 0954 BP: 139/79 Pulse: 56 Resp: 20 Temp: 98.1 ??F (36.7 ??C) TempSrc: Temporal SpO2: 100% Weight: 100 kg (220 lb 6.4 oz) Height: 5' 11 (1.803 m) Diagnoses/Impression: 1. Vitamin D deficiency VITAMIN D, 25 OH VENIPUNC ARM DRAW 2. Fatigue, unspecified type CBC W/DIFF AUTOMATED BASIC METABOLIC PANEL VENIPUNC ARM DRAW 3. Mild depression 4. Dysthymia Chronic sertraline (ZOLOFT) 50 MG tablet Recommendations and Plan: 1. Vitamin D deficiency - VITAMIN D, 25 OH; Future 2. Fatigue, unspecified type - CBC W/DIFF AUTOMATED; Future - BASIC METABOLIC PANEL; Future 3. Mild depression 4. Dysthymia MADHAV 5 and PHQ 6 today Will increase SSRI - sertraline (ZOLOFT) 50 MG tablet; Take 2 tablets (100 mg total) by mouth daily. Dispense: 60 tablet; Refill: 2 Advised 3-month follow-up appointment for depression. He voiced understanding and agrees with the plan. All questions answered. Orders Placed This Encounter ??? VENIPUNC ARM DRAW ??? CBC W/DIFF AUTOMATED ??? BASIC METABOLIC PANEL ??? VITAMIN D, 25 OH ??? sertraline (ZOLOFT) 50 MG tablet Reviewed and updated this visit by provider: Stefania Bean MD Referring Provider: No ref. provider found PCP: Stefania Bean MD QUALITY TECHNICIAN documented in this encounter Plan of Treatment Upcoming Encounters Date Type Department Care Team (Late st Contact Info) Description 07/23/2024 9:00 AM CDT Office Visit [facility] Medical Group Family & Internal Medicine [facility] [address] [place] [address] [place] [address] [facility]. [address] [place] [address] documented as of this encounter Procedures Procedure Name Priority Date/Time Associated Diagnosis Comments VENIPUNC ARM DRAW Routine 12/30/2021 10: 27 AM LEAD QUALITY TECHNICIAN Vitamin D deficiency Fatigue, unspecified type BASIC METABOLIC PANEL Routine 12/30/2021 10:14 AM LEAD QUALITY TECHNICIAN Fatigue, unspecified type CBC W/DIFF AUTOMATED Routine 12/30/2021 10:14 AM LEAD QUALITY TECHNICIAN Fatigue, unspecified type VITAMIN D, 25 OH Routine 12/30/2021 10:1 4 AM LEAD QUALITY TECHNICIAN Vitamin D deficiency documented in this encounter Results * (ABNORMAL) VITAMIN D, 25 OH (12/30/2021 10:14 AM LEAD QUALITY TECHNICIAN) VITAMIN D 25 HYDROXY TOTAL S/P/B 27.8(L) >29.9 ng/mL [facility] Comment: Vitamin D, 25-Hydroxy reports concentrations of two common forms, 25-OHD2 and 25-OHD3. 25-OHD3 indicates both endogenous production and supplementation. 25-OHD2 is an indicator of exogenous sources, such as diet or supplementation. Therapy is based on measurement of Total 25-OHD, with levels <20 ng/mL indicative of Vitamin D deficiency, while levels between 20 ng/mL and 30 ng/mL suggest insufficiency. Optimal levels are >=30 ng/mL. Vitamin-D is fat-soluble and therefore inadvertent or intentional ingestion of excessively high amounts could be toxic. Studies in children and adults suggest blood levels would need to exceed 150 ng/mL before there is any concern. Hesham MF, Freeman NC, José MONTANA, et al. Evaluation, treatment, and prevention of vitamin D deficiency: an Endocrine Society clinical practice guideline. J Clin Endocrinol Metab. 2011;96(7):1911-30.This test is performed by a Liquid Chromatography-Tandem Mass Spectrometry (LC-MS/MS) method. This test was developed and its performance characteristics determined by the [employer]. It has not been cleared or approved by the U.S. FDA. [facility]. is regulated under Clinical Laboratory Improvement Amendments (CLIA) as qualified to perform high-complexity testing. This test is used for clinical purposes. It should not be regarded as investigational or for research. Vitamin D, 25-Hydroxy reports concentrations of two [...] levels are > or = 30 ng/mL. Vitamin D is fat-soluble and therefore inadvertent or intentional ingestion of excessively high amounts could be toxic. Studies in children and adults suggest blood levels would need to exceed 150 ng/mL before there is any concern. Hesham MF, Freeman NC, José MONTANA, et al., Evaluation, treatment, and prevention of vitamin D deficiency: an Endocrine Society clinical practice guideline. J Clin. Endocrinol. Metab. 2011;96(7):1911-30. VITAMIN D 25 HYDROXY D3 S/P/B 23.9 ng/mL [facility] [facility] Comment: This test was developed and its analytical performance characteristics have been determined by [employer]. It has not been cleared or approved by the FDA. This assay has been validated pursuant to the CLIA regulations and is used for clinical purposes. VITAMIN D 25 HYDROXY D2 S/P/B 3.9 ng/mL [employer] [facility] Comment: This test was developed and its analytical performance characteristics have been determined by [employer]. It has not been cleared or approved by the FDA. This assay has been validated pursuant to the CLIA regulations and is used for clinical purposes. 12/30/2021 10:1 4 AM LEAD QUALITY TECHNICIAN 12/31/2021 4:16 AM LEAD QUALITY TECHNICIAN Narrative Resulting Agency Comment Performing Organization Information: ?Site ID: [id number] ?Name: [facility] ?Address: [facility] [address], [address] [place] [address] ?Director: Jose Antonio Ledesma MD Stefania Bean MD LABORATORY Final Result [facility] [address] [facility], [address] [place] [address], * BASIC METABOLIC PANEL (12/30/2021 10:14 AM LEAD QUALITY TECHNICIAN) GLUCOSE 87 65 - 99 mg/dL [facility] Comment: ? Fasting reference interval BUN 19 7 - 25 mg/dL [facility] CREATININE S/P/B 1.00 0.60 - 1.29 mg/dL [facility] GFR ESTIMATE 94 > OR = 60 mL/min/1. 73m2 [facility] Comment: The eGFR is based on the CKD-EPI 2020 equation. To calculate the new eGFR from a previous Creatinine or Cystatin C result, go to https://www.kidney.org/professionals/ kdoqi/gfr%5Fcalculator BUN CREATININE RATIO NOT APPLICABLE 6 - 22 (calc) [facility] SODIUM S/P/B 140 135 - 146 mmol/L [facility] POTASSIUM S/P/B 4.2 3.5 - 5.3 mmol/L [facility] CHLORIDE S/P/B 101 98 - 110 mmol/L [facility] CO2 31 20 - 32 mmol/L [facility] CALCIUM S/P/B 9.6 8.6 - 10.3 mg/dL [facility] 12/30/2021 10:1 4 AM LEAD QUALITY TECHNICIAN 12/31/2021 8:50 AM LEAD QUALITY TECHNICIAN Narrative Resulting Agency Comment Performing Organization Information: ?Site ID: [id number] ?Name: [facility] ?Address: [address] [place] [address] ?Director: Zack Patel D.O., MPH Stefania Bean MD LABORATORY Final Result [facility] [address] [place] [address], * CBC W/DIFF AUTOMATED (12/30/2021 10:14 AM LEAD QUALITY TECHNICIAN) WBC 8.1 3.8 - 10.8 Thousand/u L [facility] RBC 4.91 4.20 - 5.80 Million/uL [facility] HGB 15.0 13.2 - 17.1 g/dL [facility] HCT 45.1 38.5 - 50.0 % [facility] MCV 91.9 80.0 - 100.0 fL [facility] MCH 30.5 27.0 - 33.0 pg [facility] MCHC 33.3 32.0 - 36.0 g/dL [facility] RDW 12.9 11.0 - 15.0 % [facility] PLT 247 140 - 400 Thousand/u L [facility] MPV 10.9 7.5 - 12.5 fL [facility] ABS. NEUTROPHILS 5,135 1,500 - 7,800 cells/uL [facility] ABS. LYMPHOCYTES 2,195 850 - 3,900 cells/uL [facility] ABS. MONOCYTES 527 200 - 950 cells/uL [facility] ABS. EOSINOPHILS 203 15 - 500 cells/uL [facility] ABS. BASOPHILS 41 0 - 200 cells/uL [facility] SEG NEUTROPHILS 63.4 % [facility] LYMPHOCYTES 27.1 % [facility] MONOCYTES 6.5 % [facility] EOSINOPHILS 2.5 % [facility] BASOPHILS 0.5 % [facility] 12/30/2021 10:1 4 AM LEAD QUALITY TECHNICIAN 12/31/2021 8:50 AM LEAD QUALITY TECHNICIAN Narrative Resulting Agency Comment Performing Organization Information: ?Site ID: [place] ?Name: [facility] ?Address: [address] [place] [address] ?Director: Zack Patel D.O. MPH Stefania Bean MD LABORATORY Final Result [facility] [address] [place] [address], documented in this encounter Visit Diagnoses Diagnosis Vitamin D deficiency- Primary Unspecified vitamin D deficiency Fatigue, unspecified type Mild depression Depressive disorder, not elsewhere classified Dysthymia Dysthymic disorder documented in this encounter Additional Health Concerns Assessment Noted Time PHQ-9 Depression Total Score: 11 022 9:55 AM LEAD QUALITY TECHNICIAN documented as of this encounter Care Teams Battery Tester Field Relationship Specialty [place] [address] [facility] [place] [address] PCP - General FAMILY PRACTICE 06/01/21 documented as of this encounter
--- OUTSIDE RECORDS SUMMARY | 2024-02-01 17:01 | XMS_ITS | Encounter Summary ---
Author Organization [facility] Address [facility] [place] [address] [place] [address] Care Team Providers Care Courseware Developer Name Role Phone Stefania Bean MD Primary Care Provider [phone] Reason for Visit * Reason Comments QUANTITY SURVEYOR [place] New Patient Referral colon eve lanza * Consultation/Treatment (Routine) - Pending Review Specialty Diagnoses / Procedures Referred By Jim t Referred To Contact GASTROENTEROLOGY Diagnoses Needing a consult for a colonoscopy-no issues but am going to be 48 years old. Procedures NEW PATIENT Yenny Pradhan MD [address] [address] Phone: tel: fax: Yenny Pradhan MD [address] [address] Phone: tel: fax: Referral ID Status Reason Start Date Expiration Date V isits Requested Visits Authorized [id number] Pending Review 07/01/2023 06/28/2024 99 99 Encounter Details Date Type Department Care Team (Latest Contact Info) Description 07/01/2023 1:40 PM CDT Office Visit [facility] Gastroenterology Specialty Clinic [address] [place] [address] [address] Deandra Chong NP [address] [address] Yenny Pradhan MD [address] [place] [address], [place] [address] QUANTITY SURVEYOR [place]; New Patient (Referral colon screening) Social History Tobacco Use Types Packs/Day Years [...] Sign Reading Time Taken Comments Blood Pressure 128/80 07/01/2023 1:43 PM CDT Pulse 61 07/01/2023 1:43 PM CDT Temperature 36.7 ??C (98 ??F) 07/01/2023 1:43 PM CDT Respiratory Rate 20 07/01/2023 1:43 PM CDT Oxygen Saturation 7% 07/01/2023 1:43 PM CDT Inhaled Oxygen Concentration - - Weight 103 kg (227 lb) 07/01/2023 1:43 PM CDT Height 180.3 cm (5' 11 ) 07/01/2023 1:43 PM CDT Body Mass Index 31.66 07/01/2023 1:43 PM CDT documented in this encounter Progress Notes * Yenny Pradhan MD - 07/01/2023 1:40 PM CDT Images from the original note were not included. Gastroenterology Initial Visit Reason for Visit: QUANTITY SURVEYOR [place] and New Patient (Referral colon screening) History of Present Illness: 48-year-old male comes for screening colonoscopy. Never happened before. No GI problems. No family history of colon cancer. Denies any recent operations. No blood thinners. ROS: General: No fever, chills, malaise, fatigue, weight loss or gain HEENT: No acute changes in vision or hearing Respiratory: No shortness of breath, cough, sputum production, hemoptysis Cardiovascular: No chest pain, palpitations, orthopnea Gastrointestinal: As per HPI Musculoskeletal: No dysuria, hematuria, incontinence Neuro: No extremity edema, myalgia Hematology: No easy bruising, bleeding Skin: No new skin rashes or lesions Medications: Current Outpatient Medications: buPROPion XL (WELLBUTRIN [...] this date., Disp: 12 capsule, Rfl: 0 Allergies: No Known Allergies Medical History: Past Medical History: Diagnosis Date Allergy seasonal COVID-19 12/2019 Depression Gender dysphoria Sleep apnea Surgical History: History reviewed. No pertinent surgical history. Social History: Family History: Family History Problem Relation Name Age of Onset Heart Disease Other family history PE: Filed Vitals: 07/01/23 1343 BP: 128/80 Pulse: 61 Resp: 20 Temp: 98 ??F (36.7 ??C) TempSrc: Temporal SpO2: (!) 7% Weight: 103 kg (227 lb) Height: 1.803 m (5' 11 ) General: In NAD, pleasant and appropriate HEENT: Anicteric Cardiovascular: RRR, no m Pulmonary: CTA BL, no added sounds Abdomen: Soft, ND/NT, normoactive BS Skin: Anicteric, no rashes Neuro: A&Ox3 Labs: Diagnoses/Impression: Screening colonoscopy, average risk. Recommendations and Plan: Colonoscopy. All questions answered More recommendations to follow endoscopic evaluation Risks/Benefits/Options: Patient presented with risks (can include but are not limited to: discomfort, missing lesions, allergic or adverse reaction to the sedation, perforation of the bowel which may require hospitaliztion and surgery, bleeding, infection, aspiration), benefits, and alternatives to the procedure(s) and they are in agreement to proceed as planned. YENNY PRADHAN MD 07/01/2023 Voice recognition software utilized documented in this encounter Plan of Treatment Upcoming Encounters Date Type Department Care Team (Late st Contact Info) Description 07/23/2024 9:00 AM CDT Office Visit [facility] Family & Internal Medicine [facility] [address] [place] [address] [place] [address] [facility]. [address] [place] [address] documented as of this encounter Visit Diagnoses Diagnosis Screening for colon cancer- Primary Special screening for malignant neoplasms, colon documented in this encounter Additional Health Concerns Assessment Noted Time PHQ-9 Depression Total Score: 8 12/04/19 23 11:13 AM CDT documented as of this encounter Care Teams Courseware Developer Relationship Specialty [place] [address] [facility] [address] [place] [address] PCP - General FAMILY PRACTICE 06/01/21 documented as of this encounter
--- OUTSIDE RECORDS SUMMARY | 2024-02-01 17:01 | XMS_ITS | Encounter Summary ---
Author Organization [facility] Address [facility] [place] [address] [place] [address] Care Team Providers Care Feed Research Aide Name Role Phone Stefania Bean MD Primary Care Provider [phone] Encounter Details Date Type Department Care Team (Latest Contact Info) Description 12/30/2021 Travel Social History Tobacco Use Types Packs/Day [...] Coronavirus/COVID-19? No / Unsure 12/30/2021 9:46 AM HOSPICE CASE MANAGER documented as of this encounter Plan of Treatment Upcoming Encounters Date Type Department Care Team (Late st Contact Info) Description 07/23/2024 9:00 AM CDT Office Visit [facility] Family & Internal Medicine [facility] [address] [place] [address] [place] [address] [facility]. [address] [place] [address] documented as of this encounter Visit Diagnoses Not on filedocumented in this encounter Additional Health Concerns Assessment Noted Time PHQ-9 Depression Total Score: 11 022 9:55 AM HOSPICE CASE MANAGER documented as of this encounter Care Teams Feed Research Aide Relationship Specialty [place] [address] [address] [place], [place] [id number] PCP - General FAMILY PRACTICE 06/01/21 documented as of this encounter
--- OUTSIDE RECORDS SUMMARY | 2024-02-01 17:01 | XMS_ITS | Encounter Summary ---
Author Organization [facility] Address [facility] [address] [place] [address] Care Team Providers Care Extract Operator Name Role Phone Stefania Bean MD Primary Care Provider [phone] Reason for Visit * Reason Comments Depression Pt requesting increa se on escitalopram. Encounter Details Date Type Department Care Team (Late st Contact Info) Description 12/03/2022 11:20 AM CDT Office Visit [facility] Family & Internal Medicine [address] [address] Stefania Bean MD [address] [place] [address]. [address] [place] [address] Depression (Pt requesting increase on escitalopram. ) Social History Tobacco Use Types Packs/Day Years Used Date Smoking Tobacco: Never Smokeless Tobacco: Never Tobacco Cessation:Counseling Given: No Alcohol Use Standard Drinks/Week Comments Never 0 (1 standard drink = 0.6 oz pur e alcohol) PHQ-2 Answer Date Recorded Patient Health Questionnaire-2 Score 4 12/03/2022 Sex and Gender Information Value Date Recorded Sex Assigned at Not on file Legal Sex Male 9:21 AM CDT Gender Identity Not on file Sexual Orientation Not on file documented as of this encounter Last Filed Vital Signs Vital Sign Reading Time Taken Comments Blood Pressure 146/89 12/03/2022 11:13 AM CDT Pulse 60 12/03/2022 11:13 AM CDT Temperature 36.8 ??C (98.3 ??F) 12/03/2022 11:13 AM C DT Respiratory Rate 16 12/03/2022 11:13 AM CDT Oxygen Saturation 97% 12/03/2022 11:13 AM CDT Inhaled Oxygen Concentration - - Weight 105.7 kg (233 lb) 12/03/2022 11:13 AM CDT Height 180.3 cm (5' 11 ) 12/03/2022 11:13 AM CDT Body Mass Index 32.5 12/03/2022 11:13 AM CDT documented in this encounter Progress Notes * Stefania Bean MD - 12/03/2022 11:20 AM CDT Reason for Visit: Depression (Pt requesting increase on escitalopram. ) History of Present Illness: HPI Mr. Mio Bernard is a pleasant 47 year old Male with PMH of dysthymia, hx of prediabetes and depression was seen in office today for worsening depression. He states he lost his job this month. He wont be back to work until next year. Plans to get unemployment. So has been a little stressful. He feels down and depressed. Denies any thoughts of hurting himself or anyone else. Continues to take Lexapro and trazodone as prescribed. Denies medication side effects. He takes less than half of trazodone every night. States it helps with his sleep. He now has a regular sleep cycle given not working swing shifts. ROS: Review of Systems negative except documented in HPI Medications: Current Outpatient Medications: escitalopram (LEXAPRO) 10 MG tablet, Take 2 tablets (20 mg total) by mouth daily., Disp: 60 tablet,Rfl: 5 traZODone (DESYREL) Tab 25 mg (50 mg split tab), Take half tablet at bedtime daily., Disp: 30 splittab, Rfl: 5 vitamin D2, ergocalciferol, (DRISDOL) 1.25 mg capsule, 50,000 units weekly for 12 weeks. Continue vitamin D 1,000 units for 3 to 6 months after this date., Disp: 12 capsule, Rfl: 0 Review of patient's allergies indicates: No Known Allergies Past Medical History: Diagnosis Date Allergy seasonal COVID-19 12/2019 Depression Sleep apnea History reviewed. No pertinent surgical history. Social History Socioeconomic History Marital status: Tobacco Use Smoking status: Never Smokeless tobacco: Never Vaping Use Vaping Use: Never used Substance and Sexual Activity Alcohol use: Never Drug use: Never Sexual activity: Yes Partners: Female control/protection: Surgical Social History Narrative Lives with and family E-Cigarettes Questions Responses E-Cigarette Use Never User Family History Problem Relation Name Age of Onset Heart Disease Other family history Family Status Relation Name Status Mother Alive Father Other family history Alive Physical Exam Vitals [...] and Affect: Mood normal. Behavior: Behavior normal. PHQ-2 Score PHQ-2 Score: 4 Filed Vitals: 12/03/22 1113 BP: (!) 146/89 Pulse: 60 Resp: 16 Temp: 98.3 ??F (36.8 ??C) TempSrc: Temporal SpO2: 97% Weight: 105.7 kg (233 lb) Height: 1.803 m (5' 11 ) Diagnoses/Impression: 1. Elevated blood pressure reading 2. Moderate episode of recurrent major depressive disorder (CMS/HCC) traZODone (DESYREL) Tab 25 mg (50 mg split tab) escitalopram (LEXAPRO) 10 MG tablet Recommendations and Plan: 1. Moderate episode of recurrent major depressive disorder (CMS/HCC) Chronic. Uncontrolled. PHQ4 score 3 today. Increase Lexapro. Continue low-dose trazodone at bedtime. Discussed conservative management including meditation, balanced diet, avoiding triggers, therapy as needed. Discussed yoga and henrietta chi. - traZODone (DESYREL) Tab 25 mg (50 mg split tab); Take half tablet at bedtime daily. Dispense: 30 split tab; Refill: 5 - escitalopram (LEXAPRO) 10 MG tablet; Take 2 tablets (20 mg total) by mouth daily. Dispense: 60 tablet; Refill: 5 2. Elevated blood pressure reading Mild. Likely secondary to stress. Patient left the office before for reevaluation Continue to monitor at this time. Follow-up in March. Earlier if needed. He voiced understanding and agrees with the plan. All questions answered. Orders Placed This Encounter traZODone (DESYREL) Tab 25 mg (50 mg split tab) escitalopram (LEXAPRO) 10 MG tablet Reviewed and updated this visit by provider: Stefania Bean MD Referring Provider: No ref. provider found PCP: Stefania Bean MD documented in this encounter Plan of Treatment Upcoming Encounters Date Type Department Care Team (Late st Contact Info) Description 07/23/2024 9:00 AM CDT Office Visit [facility] Family & Internal Medicine - [address] [address] [place] [address] [facility] [place]. [address] [place] [phone] documented as of this encounter Visit Diagnoses Diagnosis Elevated blood pressure reading- Primary Elevated blood pressure reading without diagnosis of hypertension Moderate episode of recurrent major depressive disorder ([facility]) documented in this encounter Additional Health Concerns Assessment Noted Time PHQ-9 Depression Total Score: 8 12/04/19 23 11:13 AM CDT documented as of this encounter Care Teams Extract Operator Relationship Specialty [place] [address] [facility] [place]. [address] [place] [phone] PCP - General FAMILY PRACTICE 06/01/21 documented as of this encounter
--- OUTSIDE RECORDS SUMMARY | 2024-02-01 17:01 | XMS_ITS | Encounter Summary ---
Author Organization [facility] Address [facility]. [place], [place] [address] [place] [address] Care Team Providers Care Harvest Worker Field Crop Name Role Phone Stefania Bean MD Primary Care Provider [phone] Encounter Details Date Type Department Care Team (Latest Contact Info) Description 09/06/2022 Travel Social History Tobacco Use Types Packs/Day Years Used Date Smoking Tobacco: Never Smokeless Tobacco: Never Alcohol Use Standard Drinks/Week Comments Never 0 (1 standard drink = 0.6 oz pur e alcohol) PHQ-2 Answer Date Recorded Patient Health Questionnaire-2 Score 1 09/06/2022 Sex and Gender Information Value Date Recorded Sex Assigned at Not on file Legal Sex Male 9:21 AM CDT Gender Identity Not on file Sexual Orientation Not on file documented as of this encounter Plan of Treatment Upcoming Encounters Date Type Department Care Team (Late st Contact Info) Description 07/23/2024 9:00 AM CDT Office Visit [facility] Family & Internal Medicine [facility] [address] [place] [address] [place] [address] [facility] [employer]. [address] [place] [address] documented as of this encounter Visit Diagnoses Not on filedocumented in this encounter Additional Health Concerns Assessment Noted Time PHQ-9 Depression Total Score: 4 09/07/19 23 10:58 AM CDT documented as of this encounter Care Teams Harvest Worker Field Crop Relationship Specialty [place] [address] [facility]. [address] [place] [address] PCP - General FAMILY PRACTICE 06/01/21 documented as of this encounter
--- OUTSIDE RECORDS SUMMARY | 2024-02-01 17:01 | XMS_ITS | Encounter Summary ---
Author Organization [facility] Address [address] [facility] [place] [address] [place] [address] Care Team Providers Care Breaker Mechanic Name Role Phone None, Provider Primary Care Provider Unavaila ble Encounter Details Date Type Department Care Team (Late Contact Info) Description 11/02/2018 9:30 AM CDT Office Visit [facility] [address] [place] [address] Ania Sahu MD [address] [place], [place] [phone] Social History Tobacco Use Types Packs/Day Years Used Date Smoking Tobacco: Never Assessed Sex and Gender Information Value Date Recorded Sex Assigned at Not on file Legal Sex Male 9:21 AM CDT Gender Identity Not on file Sexual Orientation Not on file documented as of this encounter Plan of Treatment Upcoming Encounters Date Type Department Care Team (Late Contact Info) Description 07/23/2024 9:00 AM CDT Office Visit [facility] Family & Internal Medicine [facility] [address] [place] [address] [place] [address] [facility]. [address] [place], [place] [phone] documented as of this encounter Procedures Procedure Name Priority Date/Time Associated Diagnosis Comments FECAL BLOOD FIT SCREEN Routine 11/02/2018 9:40 AM CDT HEMOGLOBIN, GLYCOSYLATED Routine 11/02/2018 9:40 AM CDT PROSTATE SPECIFIC ANTIGEN,SCREENING Routine 11/02/2018 9:40 AM CDT LIPID PANEL Routine 11/02/2018 9:40 AM CDT THYROID STIM HORMONE TSH Routine 11/02/2018 9:40 AM CDT VITAMIN D, 25 OH Routine 11/02/2018 9:40 AM CDT documented in this encounter Results * (ABNORMAL) VITAMIN D, 25 OH (11/02/2018 9:40 AM CDT) VITAMIN D 25 HYDROXY S/P/B 18(L) 30 - 100 NG/ML 11/03/2018 9:20 PM CDT [facility] Comment: ? INTERPRETATION ? DEFICIENT ??<20 ? INSUFFICIENT 20-29 ?SUFFICIENT 30-100 11/02/2018 9:40 AM CDT us Ania Sahu MD LABORATORY Final Re sult Performing Organization Address [facility] Co de Phone Number [facility] [address] [place] [address], * THYROID STIM HORMONE, TSH (11/02/2018 9:40 AM CDT) TSH 0.766 0.358 - 3.74 uIU/ML 11/02/2018 10:40 AM CDT [facility] Comment: HIGH DOSES OF BIOTIN MAY INTERFERE WITH THIS TEST RESULT. CORRELATION TO CLINICAL HISTORY AND PRESENTATION RECOMMENDED. 11/02/2018 9:40 AM CDT us Ania Sahu MD LABORATORY Final Re sult [facility] [address] [place] [address], [place] [phone] * PROSTATE SPECIFIC ANTIGEN,SCREENING (11/02/2018 9:40 AM CDT) PSA 0.64 <4.0 NG/ML 11/03/2018 9:00 PM CDT [facility] Comment: Test was performed using the Siemens method. ??Results obtained with other assay methods or kits cannot be used interchangeably with results obtained by the Siemens method. 11/02/2018 9:40 AM CDT Ania Sahu MD LABORATORY Final Re sult [facility] [address] [place] [address], [place] [phone] * (ABNORMAL) LIPID PANEL (11/02/2018 9:40 AM CDT) CHOLESTEROL 124 <200.0 MG/DL 11/02/2018 10:40 AM CDT [facility] TRIGLYCERIDES 188(H) <150 MG/DL 11/02/2018 10:40 AM T [facility] HDL 32(L) >40.0 MG/DL 11/02/2018 10:40 AM T [facility] LDL (CALCULATED) 54 <100 MG/DL 11/02/2018 10:40 AM T [facility] NON HDL CHOLESTEROL 92 <130 MG/DL 11/02/2018 10:40 AM CDT [facility] CHOL/HDL RATIO 3.9 0.0 - 4.5 11/02/2018 10:40 AM T [facility] VLDL CALCULATION 38 5 - 55 MG/DL 11/02/2018 10:40 AM CDT [facility] LIPID INTERPRETATION 11/02/2018 10:40 AM CDT [facility] Comment: NIH CONCENSUS REPORT RECOMMENDATIONS: ?ADULT ?CHILD ??LOW RISK: ?CHOLESTEROL ? <200 ? <170 ?TRIGLYCERIDE ?<150 ?--- ?HDL ? >=60 ?--- ?LDL ? <100 ? <110 ??BORDERLINE: ?CHOLESTEROL ? 200-239 ?? 170-199 ?TRIGLYCERIDE ?150-199 ? --- ?HDL ?40-59 ?--- ?LDL ? 100-159 ?? 110-129 ??HIGH RISK: ?CHOLESTEROL ? >=240 ?>=200 ?TRIGLYCERIDE ?>=200 ? --- ?HDL ?<40 ?--- ?LDL ? >=160 ?>=130 11/02/2018 9:4 0 AM CDT us Ania Sahu MD LABORATORY Final Re sult [facility] [address] [place] [address], [place] [phone] * HEMOGLOBIN, GLYCOSYLATED (11/02/2018 9:40 AM CDT) HGB A1C 5.5 <5.7 % 11/02/2018 2:23 PM CDT [facility] Comment: INCREASED RISK OF DIABETES <5.7% ?NON-DIABETES 5.7-6.4% INCREASED RISK FOR FUTURE DIABETES > OR = 6.5 CONSISTENT WITH DIABETES STANDARDS OF MEDICAL CARE IN DIABETES-2010 DIABETES CARE, 33(SUPP 1): S1-S61,2010 11/02/2018 9:40 AM CDT us Ania Sahu MD LABORATORY Final Re sult Performing Organization Address [facility] Co de Phone Number [facility] [address] [place] [address], [place] [phone] * FECAL BLOOD FIT SCREEN (11/02/2018 9:40 AM CDT) FECAL BLOOD FIT SCRN NEGATIVE NEGATIVE 11/10/2018 10:57 AM CDT [facility] 11/02/2018 9:40 AM CDT us Ania Sahu MD BODY FLUIDS AND STOOLS O RDERABLES Final Result Performing Organization Address [facility] Co de Phone Number [facility] [address] [place] [address], [place] [phone] documented in this encounter Visit Diagnoses Not on filedocumented in this encounter Care Teams Breaker Mechanic Relationship Specialty Start Date End Date None, Provider, PCP - General 11/02/18 08/24/20 documented as of this encounter
--- OUTSIDE RECORDS SUMMARY | 2024-02-01 17:01 | XMS_ITS | Encounter Summary ---
Author Organization [facility] Address [facility] [place] [address] [place] [address] Care Team Providers Care Egg Producer Name Role Phone Jalen Coughlin MD Primary Care Provider [phone] Reason for Referral * Consultation (Routine) - Closed Specialty Diagnoses / Procedures Referred By Jim brannon Referred To Contact UROLOGY Diagnoses Encounter for contraceptive management, unspecified type Jalen Coughlin MD Phone: tel: fax: Edy Baez MD [address] [place] [address] Phone: tel: fax: Referral ID Status Reason Start Date Expiration Date V isits Requested Visits Authorized [id number] Closed Specialty Services 02/11/2021 03/15/2022 99 99 NEWS DIRECTOR Reason for Visit * Reason Comments Referral Request Pt wanting to discus s having a vasectomy Encounter Details Date Type Department Care Team (Late st Contact Info) Description 02/11/2021 4:40 PM TV NEWS DIRECTOR Office Visit [facility] Family & Internal Medicine [facility] [address] [place] [address] Jlaen Coughlin MD [address] [address] Referral Request (Pt wanting to discuss having a vasectomy) Social History Tobacco Use Types Packs/Day Years [...] have Coronavirus / COVID-19? No / Unsure 02/11/2021 3:57 PM TV NEWS DIRECTOR documented as of this encounter Last Filed Vital Signs Vital Sign Reading Time Taken Comments Blood Pressure 118/78 02/11/2021 4:02 PM TV NEWS DIRECTOR Pulse 64 02/11/2021 4:02 PM TV NEWS DIRECTOR Temperature 36.8 ??C (98.2 ??F) 02/11/2021 4:02 PM CS T Respiratory Rate 18 02/11/2021 4:02 PM TV NEWS DIRECTOR Oxygen Saturation 97% 02/11/2021 4:02 PM TV NEWS DIRECTOR Inhaled Oxygen Concentration - - Weight 109.8 kg (242 lb) 02/11/2021 4:02 PM TV NEWS DIRECTOR Height 180.3 cm (5' 11 ) 02/11/2021 4:02 PM TV NEWS DIRECTOR Body Mass Index 33.75 02/11/2021 4:02 PM TV NEWS DIRECTOR documented in this encounter Patient Instructions * Patient Instructions* Jalen Coughlin MD - 02/11/2021 4:40 PM TV NEWS DIRECTOR Basim, Thank you for your visit ?? I placed referral to Dr. Vu Baez, or his colleague, Dr. Raheem Everett. ?? You should receive a call from their office in the next 2 weeks to schedule an appointment at your convenience ?? Call us with any concerns. ?? Happy new year! NEWS DIRECTOR documented in this encounter Progress Notes * Jalen Coughlin MD - 02/11/2021 4:40 PM CST SUBJECTIVE: Reason for Visit/Chief Complaint: Referral Request (Pt wanting to discuss having a vasectomy) History of Present Illness: Chief complaint and nursing note reviewed above. Basim has been well and has no complaints at this time. However, he and his have been discussing contraception and he is interested in discussing with urology, for possible vasectomy. He denies any urinary concerns. He has otherwise been well. Pertinent past medical, surgical, family, and social histories reviewed. Review of Systems: Pertinent positives and negatives as noted in HPI. All other systems reviewed and negative. Allergies: Mio has No Known Allergies. Medications: Current medication(s) at the start of this visit: Medication Sig ??? sertraline 50 MG tablet Take 1 tablet (50 mg total) by mouth daily. OBJECTIVE: Vital signs: Temp 98.2 ??F (36.8 ??C) (Temporal) BP 118/78 Pulse 64 Resp 18 SpO2 97% Wt 109.8 kg (242 lb) BMI 33.75 kg/m?? Physical Exam: GENERAL: No acute distress. Awake and conversant. EYES: Normal conjunctivae, anicteric. Round symmetric pupils. ENT: Hearing grossly intact. No nasal discharge. NECK: Neck is supple. No masses or thyromegaly. RESPIRATORY: Respirations are non-labored. No wheezing. SKIN: Warm. No rashes or ulcers. PSYCH: Alert and oriented. Cooperative, Appropriate mood and affect, Normal judgment. CV: No lower extremity edema. MSK: Normal ambulation. No clubbing or cyanosis. NEURO: Sensation and CN II-XII grossly normal. Additional Data: None. ASSESSMENT & PLAN: 1. Encounter for contraceptive management, unspecified type ?? Discussed options with patient ?? Placing referral with urology of [place]. Medication Changes/Renewals & Orders: Orders Placed This Encounter ??? Ambulatory referral to Urology Follow-up: Return if symptoms worsen or fail to improve. Jalen Coughlin MD [facility] 02/11/2021 Portions of this note were dictated using ZOZI speech recognition software. Occasional wrong wordor sound-alike substitutions may have occurred due to the inherent limitations of voice recognition software. Please read the chart carefully and recognize, using context, where the substitutions may have occurred. NEWS DIRECTOR documented in this encounter Plan of Treatment Upcoming Encounters Date Type Department Care Team (Late st Contact Info) Description 07/23/2024 9:00 AM CDT Office Visit [facility] Family & Internal Medicine [facility] [address] [place] [address] [place] [address] [facility] [address] [place], [place] [phone] Scheduled Referrals Name Type Priority Associated Diagnoses Orde r Schedule Ambulatory referral to Urology Referral Routine Encounter for contraceptive management, unspecified type Ordered: 02/11/2021 documented as of this encounter Visit Diagnoses Diagnosis Encounter for contraceptive management, unspecified type- Primary documented in this encounter Additional Health Concerns Assessment Noted Time PHQ-9 Depression Total Score: 11 07/ 021 9:59 AM CDT documented as of this encounter Care Teams Egg Producer Relationship Specialty Start Date End Date Jalen Coughlin MD PCP - General INTERNAL MEDICINE 08/25/20 05/31/21 documented as of this encounter
--- OUTSIDE RECORDS SUMMARY | 2024-02-01 17:01 | XMS_ITS | Encounter Summary ---
Author Organization [facility] Address [facility] [place] [address] [place] [address] Care Team Providers Care Program Technician Name Role Phone Stefania Bean MD Primary Care Provider Encounter Details Date Type Department Care Team (Latest Contact Info) Description 12/03/2022 Travel Social History Tobacco Use Types Packs/Day [...] Description 07/23/2024 9:00 AM CDT Office Visit [facility] Family & Internal Medicine [facility] [address] [place] [address] [place] [address] [facility]. [address] [place] [address] documented as of this encounter Visit Diagnoses Not on filedocumented in this encounter Additional Health Concerns Assessment Noted Time PHQ-9 Depression Total Score: 8 12/04/19 23 11:13 AM CDT documented as of this encounter Care Teams Program Technician Relationship Specialty Start [place] [address] [facility] [employer]. [address] [place] [address] PCP - General FAMILY PRACTICE 06/01/21 documented as of this encounter
--- OUTSIDE RECORDS SUMMARY | 2024-02-01 17:01 | XMS_ITS | Encounter Summary ---
Author Organization [facility] Address [address] [place] [address]. [place], [place] [id number] [place] [address] Care Team Providers Care Crystalizer Name Role Phone Stefania Bean MD Primary Care Provider [phone] Reason for Visit * Auth/Cert Specialty Diagnoses / Procedures Referred By Jim brannon Referred To Contact Diagnoses Screening for colon cancer screening colonoscopy Procedures COLONOSCOPY FLX DX W/COLLJ SPEC WHEN PFRMD COLONOSCOPY DIAGNOSTIC WITH/WITHOUT SPECIMEN BRUSH/WASH Yenny Pradhan MD [address] [address] Phone: tel: fax: Referral ID Status Reason Start Date Expiration Date Visits Re quested Visits Authorized [id number] 1 1 Encounter Details Date Type Department Care Team (Latest Contact Info) Description 08/26/2023 9:09 AM CDT - 08/26/2023 12:40 PM CDT Hospital Encounter [facility] [address] [place] [address] Yenny Pradhan MD 3 [facility] [address] [place], [place] [id number] Discharge Disposition: Home or Self Care (Routine Discharge) Social History Tobacco Use Types Packs/Day Years [...] Sign Reading Time Taken Comments Blood Pressure 124/68 08/26/2023 12:12 PM CDT Pulse 59 08/26/2023 12:12 PM CDT Temperature 36.2 ??C (97.1 ??F) 08/26/2023 9:52 AM CD T Respiratory Rate 16 08/26/2023 12:12 PM CDT Oxygen Saturation 100% 08/26/2023 12:12 PM CDT Inhaled Oxygen Concentration - - Weight 104.3 kg (230 lb) 08/19/2023 8:59 AM CDT Height 180.3 cm (5' 11 ) 08/19/2023 8:59 AM CDT Body Mass Index 32.08 08/19/2023 8:59 AM CDT documented in this encounter Discharge Instructions * Attachments The following attachments cannot be sent through Care Everywhere. * Colon Polypectomy Discharge Instructions (Kazakh) * Moderate Sedation in Adults Discharge Instructions (Kazakh) documented in this encounter Medications at Time of Discharge vitamin D2, ergocalciferol, (DRISDOL) 1.25 mg capsuleIndicatio ns:Vitamin D deficiency 50,000 units weekly for 12 weeks. Continue vitamin D 1,000 units for 3 to 6 months after this date. 12 capsule 06/16/2022 buPROPion XL (WELLBUTRIN XL) 150 MG 24 hr tabletIndication s:Moderate episode of recurrent major depressive disorder (CMS/HCC HHS/HCC) Take 1 tablet (150 mg total) by mouth every morning. 30 tablet 5 06/30/2023 10/12/2023 escitalopram (LEXAPRO) 20 MG tabletIndication s:Moderate episode of recurrent major depressive disorder (CMS/HCC HHS/HCC) Take 1 tablet (20 mg total) by mouth daily. 30 tablet 5 06/30/2023 09/09/2023 traZODone (DESYREL) 50 MG tabletIndication s:Moderate episode of recurrent major depressive disorder (CMS/HCC HHS/HCC) Take 0.5 tablets (25 mg total) by mouth nightly at bedtime. 15 tablet 5 06/30/2023 09/09/2023 documented as of this encounter Progress Notes * Yenny Pradhan MD - 08/26/2023 12:40 PM CDT Your colon polyp was a benign hyperplastic polyp. These have no malignant potential. Repeat colonoscopy in 10 years. documented in this encounter H&P Notes * Yenny Pradhan MD - 08/26/2023 11:26 AM CDT GASTROENTEROLOGY H&P 08/26/2023 11:26 AM Reason for Consult: Screening colonoscopy History of Present Illness: Chasity Bernard is a 48-year-old same Patient Active Problem List Diagnosis Dysthymia Fatigue, unspecified type Class 1 obesity due to excess calories without serious comorbidity with body mass index (BMI) of 33.0 to 33.9 in adult Medication management DAVION (obstructive sleep apnea) Elevated glucose Gender identity disorder, unspecified Screening for colon cancer Past Medical History: Diagnosis Date Allergy seasonal COVID-19 12/2019 Depression Gender dysphoria Sleep apnea History reviewed. No pertinent surgical history. Family History Problem Relation Name Age of Onset Heart Disease Other family history Social History Socioeconomic History Marital status: Spouse name: Not on file Number of children: Not on file Years of education: Not on file Highest education level: Not on file Occupational History Not on file Tobacco Use Smoking status: Never Smokeless tobacco: Never Vaping Use Vaping status: Never Used Substance and Sexual Activity Alcohol use: Never Drug use: Never Sexual activity: Yes Partners: Female control/protection: Surgical Other Topics Concern Not on file Social History Narrative Lives with and family Social Determinants of Health Financial Resource Strain: Not on file Food Insecurity: Not on file Transportation Needs: Not on file Physical Activity: Not on file Stress: Not on file Social Connections: Not on file Intimate Partner Violence: Not on file Housing Stability: Not on file No Known Allergies PHYSICAL EXAM: Filed Vitals: 08/19/23 0859 08/26/23 0952 BP: 131/75 Pulse: (!) 54 Resp: 16 Temp: 97.1 ??F (36.2 ??C) TempSrc: Tympanic SpO2: 100% Weight: 104.3 kg (230 lb) Height: 1.803 m (5' 11 ) Wt Readings from Last 3 Encounters: 08/19/23 104.3 kg (230 lb) 07/01/23 103 kg (227 lb) 06/30/23 103 kg (227 lb) General: pleasant, no distress Lungs: clear to auscultation bilaterally Heart: regular rate and rhythm, normal s1-s2 Abdomen: soft, non-tender, non-distended, bowel sounds normal, no palpable masses Neuro: Alert, oriented, cooperative Labs: No results for input(s): WBC , HGB , MCV , PLT , INR in the last 168 hours. No results for input(s): NA , K , CL , CO2 , BUN in the last 168 hours. Invalid input(s): CREATININE No results for input(s): AST , ALT , ALB in the last 168 hours. Invalid input(s): ALKPHOS , TBILI ? Assessment and Plan: Screening colonoscopy. The procedural risks, benefits, alternatives were discussed fully with the patient, including the risks of complications of bleeding, infection, bowel injury or perforation, anesthesia related risks but not limited to the above. Post complication remedies could include hospitalization, antibiotics,surgery or even the remote possibility of . The patient verbalized understanding of the risks and wishes to proceed. Thank you for this consult. Please do not hesitate to contact us with further questions. YENNY PRADHAN MD Voice recognition software utilized documented in this encounter OR Notes * Op Note - Yenny Pradhan MD - 08/26/2023 11:51 AM CDT [facility] OpNote Colonoscopy with polypectomy Procedure Note Chasity Bernard 08/26/2023 1055 Procedure(s) (LRB): Colonoscopy with polypectomy (N/A) Surgeon(s): Yenny Pradhan MD Staff: Circulating Nurse 1: Ondina Martin RN Scrub Person 1: Kita Rodriguez CST Anesthesia: Monitor Anesthesia Care FINANCIAL SYSTEMS MANAGER: Amina Babin CRNA Pre-Op Diagnosis: screening colonoscopy Post-Op Diagnosis: Sigmoid polyp Procedure Description: Informed consent was obtained earlier. Patient was brought to the OR and placed in supine lateral decubitus position and sedated under MAC anesthesia. PCF 190 colonoscope was lubricated inserted into the rectum and advanced to the cecum. Bowel prep was very good. Cecum was identified by the ileocecal valve and the appendiceal orifice and looks normal. Ascending colon transverse colon descending colon looked normal. In the sigmoid colon there was a tiny flat polyp that wascold snared removed and recovered. Rectum was normal. Retroflexion revealed mild hemorrhoids. Findings: Tiny sigmoid polyp removed by cold snare. Otherwise negative colonoscopy to cecum with very good bowel prep. Plan: Check pathology. Repeat colonoscopy in 5 or 10 years pending path. Complications: None Estimated Blood Loss: None Specimens: Order Name Source Comment Collection Info Order Time PATHOLOGY COLON Collected By: Yenny Pradhan MD 08/26/2023 11:51 AM Release to patient System release Voice recognition software utilized. YENNY PRADHAN MD Date: 08/26/2023 Time: 11:52 AM Voice recognition software utilized. documented in this encounter Plan of Treatment Upcoming Encounters Date Type Department Care Team (Late st Contact Info) Description 07/23/2024 9:00 AM CDT Office Visit [facility] Medical Group Family & Internal Medicine [place] [phone] Stefania Bean MD [address] [place] [address]. [address] [place] [address] documented as of this encounter Procedures Procedure Name Priority Date/Time Associated Diagnosis Comments COLONOSCOPY FLX DX W/COLLJ SPEC WHEN PFRMD 08/26/2023 11:28 AM CDT Screening for colon cancer Case Notes C PATHOLOGY Routine 08/26/2023 12:00 AM CDT documented in this encounter Results * Pathology (08/26/2023 12:00 AM CDT) PATHOLOGY [facility] ? Department of Laboratory Medicine ?[address] [facility] ?[place] [address] ? , extension [phone] ? Pathology Report ? Surgical Pathology Report Name: CHASITY BERNARD ?Specimen #: [id number] Age: 3 1975 (Age: 48) ?Location: [facility] Sex: M ?Procedure Date: 08/26/2023 Hospital #: [id number] ?Date Received: 08/29/2023 Date Reported: 08/31/2023 Provider: YENNY PRADHAN MD Source: Colon, sigmoid, polyp Clinical History: Screening. Gross Description: Received in formalin, labeled with a patient label and as colon polyp is a 0.3 cm sheet of pink-guzman tissue. ??The specimen is entirely submitted in cassette 1. Gross examination (when applicable) was performed at [facility], [address] [place] [address], [place] [address]. This case was interpreted and signed out at [facility], [address] [facility] [address]. FINAL DIAGNOSIS: Colon polyp, sigmoid, polypectomy: ? -Hyperplastic polyp Deeper levels performed. Electronically Signed Out ? DANIS MICHAEL MD [facility] TISSUE COLON STRUCTURE / Unknown 08/26/2023 11:49 AM CDT us Yenny Pradhan MD PATHOLOGY/CYTOLOGY ORDERABLES Fi nal Result [facility] [address] [place] [address], [place] [phone] [id number] documented in this encounter Visit Diagnoses Diagnosis Screening for colon cancer- Primary Special screening for malignant neoplasms, colon documented in this encounter Admitting Diagnoses Diagnosis Screening for colon cancer Special screening for malignant neoplasms, colon documented in this encounter Administered Medications Inactive Administered Medications - up to 3 most recent administrations Medication Order MAR Action Action Date Dose Rate Site lactated ringers infusion at 10 mL/hr, Intravenous, Continuous, Starting on Tue08/26/23 at 1000, Until Tue08/26/23 at 1441, Infuse at TKO rate, Pre-Op Continued by Anesthesia 08/26/2023 11:30 AM CDT 10 mL/hr New Bag 08/26/2023 10:02 AM CDT 10 mL/hr documented in this encounter Active and Recently Administered Medications Times are shown in CDT. Continuous Medication Order 08/24/2023 08/25/2023 08/26/2023 lactated ringers infusion at 10 mL/hr, Intravenous, Continuous, Starting on Tue08/26/23 at 1000, Until Tue08/26/23 at 1441, Infuse at TKO rate, Pre-Op 1002 (New Bag - Prov ider: Leyla Rodriguez RN)1130 (Continued by Anesthesia - Provider: Amina Babin CRNA)1217 (Infusion Stop Time - Provider: Skyla Blackman RN) documented in this encounter Additional Health Concerns Assessment Noted Time PHQ-9 Depression Total Score: 8 12/04/19 23 11:13 AM CDT documented as of this encounter Care Teams Crystalizer Relationship Specialty [place] [address] [place], [place] [phone] PCP - General FAMILY PRACTICE 06/01/21 documented as of this encounter
--- OUTSIDE RECORDS SUMMARY | 2024-02-01 17:01 | XMS_ITS | Encounter Summary ---
Author Organization [facility] Address [facility]. [place], [place] [address] [place] [address] Care Team Providers Care Engine Builder Name Role Phone Stefania Bean MD Primary Care Provider Encounter Details Date Type Department Care Team (Late st Contact Info) Description 06/16/2022 Orders Only [facility] Family & Internal [address] [phone] [place] [address] [facility]. [address] [place] [address] Social History Tobacco Use Types Packs/Day Years Used Date Smoking Tobacco: Never Smokeless Tobacco: Never Alcohol Use Standard Drinks/Week Comments Not Currently 0 (1 standard drink = 0.6 oz pur e alcohol) PHQ-2 Answer Date Recorded Patient Health Questionnaire-2 Score 4 06/07/2022 Sex and Gender Information Value Date Recorded Sex Assigned at Not on file Legal Sex Male 9:21 AM CDT Gender Identity Not on file Sexual Orientation Not on file COVID-19 Exposure Response Date Recorded In the last 10 days, have yo u been in contact with someone who was confirmed or suspected to have Coronavirus/COVID-19? No / Unsure 06/07/2022 6:47 AM CDT documented as of this encounter Plan of Treatment Upcoming Encounters Date Type Department Care Team (Late st Contact Info) Description 07/23/2024 9:00 AM CDT Office Visit [facility] Family & Internal [address] [phone] [place] [address] [place] [address] documented as of this encounter Visit Diagnoses Diagnosis Vitamin D deficiency- Primary Unspecified vitamin D deficiency documented in this encounter Additional Health Concerns Assessment Noted Time PHQ-9 Depression Total Score: 9 06/08/19 23 7:01 AM CDT documented as of this encounter Care Teams Engine Builder Relationship Specialty [place] [address] [place] [address] PCP - General FAMILY PRACTICE 06/01/21 documented as of this encounter
--- OUTSIDE RECORDS SUMMARY | 2024-02-01 17:01 | XMS_ITS | Encounter Summary ---
Author Organization [facility] Address [facility] [place] [address] [place] [address] Care Team Providers Care Yarn Comber Name Role Phone Stefania Bean MD Primary Care Provider [phone] Reason for Visit * Reason Comments Depression 6 week fu Encounter Details Date Type Department Care Team (Late st Contact Info) Description 06/07/2022 7:00 AM CDT Office Visit [facility] Medical Group Family & Internal Medicine [facility] [id number] [place] [phone] [place] Bean [place] [id number] [place] [address]. [address] [place] [address] Depression (6 week fu ) Social History Tobacco Use Types Packs/Day [...] Sign Reading Time Taken Comments Blood Pressure 118/73 06/07/2022 7:00 AM CDT Pulse 63 06/07/2022 7:00 AM CDT Temperature 36.8 ??C (98.3 ??F) 06/07/2022 7:00 AM CD T Respiratory Rate 20 06/07/2022 7:00 AM CDT Oxygen Saturation 98% 06/07/2022 7:00 AM CDT Inhaled Oxygen Concentration - - Weight 103.4 kg (228 lb) 06/07/2022 7:00 AM CDT Height 180.3 cm (5' 11 ) 06/07/2022 7:00 AM CDT Body Mass Index 31.8 06/07/2022 7:00 AM CDT documented in this encounter Progress Notes * Stefania Bean MD - 06/07/2022 7:00 AM CDT Reason for Visit: Depression (6 week fu ) History of Present Illness: HPI Mr. Mio Bernard is a pleasant 47 year old Male with PMH of dysthymia, hx of prediabetes and depression was seen in office today for 6-week follow-up appointment on his depression. OV- 04/26-sertraline was stopped. Patient was started on trazodone He states trazodone helps him stay asleep. He takes 1 tablet at bedtime. Its harder to stay asleep. Mood- still feels low, little better than before. CONTINUES to not have energy. He does work swing shift, bedtime changes everyday. He had physical at work. Was told of dehydration. Grandfather had diabetes. No other concerns for today. ROS: Review [...] and sleep disturbance. Negative for behavioral problems. Medications: Current Outpatient Medications: escitalopram (LEXAPRO) 10 MG tablet, Take 1 tablet (10 mg total) by mouth daily., Disp: 30 tablet, Rfl: 2 traZODone (DESYREL) 50 MG tablet, Take 1 tablet daily 2 hrs before bedtime., Disp: 30 tablet, Rfl: 2 vitamin D2, ergocalciferol, (DRISDOL) 12534 UNITS capsule, Take 1 capsule (50,000 Units total) by mouth every 7 days., Disp: 12 capsule, Rfl: 0 vitamin D2, ergocalciferol, 09878 UNITS capsule, Take 1 capsule (50,000 Units total) by mouth every7 days., Disp: 12 capsule, Rfl: 0 Review of patient's allergies indicates: No Known Allergies Past Medical History: Diagnosis Date Allergy seasonal COVID-19 12/2019 Depression Sleep apnea History reviewed. No pertinent surgical history. Social History Socioeconomic History Marital status: Tobacco Use Smoking status: Never Smokeless tobacco: Never Vaping Use Vaping Use: Never used Substance and Sexual Activity Alcohol use: Not Currently Drug use: Never Social History Narrative Lives [...] Thought Content: Thought content normal. Thought content does not include homicidal or suicidal ideation. Thought content does not include homicidal or suicidal plan. Judgment: Judgment normal. MADHAV-7 (Generalized Anxiety Disorder) [...] with other people? somewhat difficult very difficult PHQ-2 Score PHQ-2 Score: 4 Filed Vitals: 06/07/22 0700 BP: 118/73 Pulse: 63 Resp: 20 Temp: 98.3 ??F (36.8 ??C) TempSrc: Temporal SpO2: 98% Weight: 103.4 kg (228 lb) Height: 5' 11 (1.803 m) Diagnoses/Impression: 1. Moderate episode of recurrent major depressive disorder (CMS/HCC) escitalopram (LEXAPRO) 10 MG tablet traZODone (DESYREL) 50 MG tablet VENIPUNC ARM DRAW 2. Dehydration BASIC METABOLIC PANEL VENIPUNC ARM DRAW 3. Hyperglycemia HEMOGLOBIN, GLYCOSYLATED VENIPUNC ARM DRAW Recommendations and Plan: Failed sertraline in past. MADHAV 9 Phq 4 today Symptoms better but can be better controlled. Cannot increase trazodone further given morning drowsiness. Continue trazodone, advised to take it 2 hours earlier than bedtime. Shared decision making to start Lexapro to help with depression. Discussed common side effects. Labs today for fatigue and follow up from work physical Known history of prediabetes which was resolved. Will follow up. Continue to drink plenty of water. Follow-up in 3 months. Earlier if needed. He voiced understanding and agrees with the plan. All questions answered. Orders Placed This Encounter VENIPUNC ARM DRAW BASIC METABOLIC PANEL HEMOGLOBIN, GLYCOSYLATED DISCONTD: sertraline (ZOLOFT) 50 MG tablet escitalopram (LEXAPRO) 10 MG tablet traZODone (DESYREL) 50 MG tablet Reviewed and updated this visit by provider: Stefania Bean MD Referring Provider: No ref. provider found PCP: Stefania Bean MD documented in this encounter Plan of Treatment Upcoming Encounters Date Type Department Care Team (Late st Contact Info) Description 07/23/2024 9:00 AM CDT Office Visit [facility] Medical Group Family & Internal Medicine [facility] [address] [place] [address] [place] [address] [facility] [place] [address] documented as of this encounter Procedures Procedure Name Priority Date/Time Associated Diagnosis Comments VENIPUNC ARM DRAW Routine 06/07/2022 7:2 0 AM CDT Moderate episode of recurrent major depressive disorder ([facility]) Dehydration Hyperglycemia HEMOGLOBIN, GLYCOSYLATED Routine 06/07/2022 7:20 AM CDT Hyperglycemia BASIC METABOLIC PANEL Routine 06/07/2022 7:20 AM CDT Dehydration documented in this encounter Results * HEMOGLOBIN, GLYCOSYLATED (06/07/2022 7:20 AM CDT) HGB A1C 5.5 <5.7 % of total Hgb [facility] Comment: For the purpose of screening for the presence of diabetes: <5.7% ? Consistent with the absence of diabetes 5.7-6.4% ?Consistent with increased risk for diabetes ?(prediabetes) > or =6.5% ??Consistent with diabetes This assay result is consistent with a decreased risk of diabetes. Currently, no consensus exists regarding use of hemoglobin A1c for diagnosis of diabetes in children. According to [place] Diabetes Association (ADA) guidelines, hemoglobin A1c <7.0% represents optimal control in non- diabetic patients. Different metrics may apply to specific patient populations. Standards of Medical Care in Diabetes(ADA). ?? 06/07/2022 7:20 AM CDT 06/08/2022 5:11 AM CDT Narrative Resulting Agency Comment Performing Organization Information: ?Site ID: [id number] ?Name: Lowell Gutierrez ?Address: [address] [place] [address] ?Director: Calvin Gunn MD us Stefania Bean MD LABORATORY Final Result [facility] [address] [place] [address], * (ABNORMAL) BASIC METABOLIC PANEL (06/07/2022 7:20 AM CDT) GLUCOSE 109(H) 65 - 99 mg/dL [facility] [employer] [facility] Comment: ? Fasting reference interval For someone without known diabetes, a glucose value between 100 and 125 mg/dL is consistent with prediabetes and should be confirmed with a follow-up test. BUN 16 7 - 25 mg/dL [employer] [facility] CREATININE S/P/B 1.01 0.60 - 1.29 mg/dL [employer] [facility] GFR ESTIMATE 92 > OR = 60 mL/min/1. 73m2 [employer] [facility] Comment: The eGFR is based on the CKD-EPI 2020 equation. To calculate the new eGFR from a previous Creatinine or Cystatin C result, go to https://www.kidney.org/professionals/ kdoqi/gfr%5Fcalculator BUN CREATININE RATIO NOT APPLICABLE 6 - 22 (calc) [employer] CESARIO SODIUM S/P/B 142 135 - 146 mmol/L [employer] [facility] POTASSIUM S/P/B 4.5 3.5 - 5.3 mmol/L [employer] [facility] CHLORIDE S/P/B 107 98 - 110 mmol/L [employer] [facility] CO2 26 20 - 32 mmol/L [employer] [facility] CALCIUM S/P/B 9.5 8.6 - 10.3 mg/dL [employer] [facility] 06/07/2022 7:20 AM CDT 06/08/2022 5:11 AM CDT Narrative Resulting Agency Comment Performing Organization Information: ?Site ID: [id number] ?Name: Lowell Gutierrez ?Address: [address] [place] [address] ?Director: Calvin Gunn MD Stefania Bean MD LABORATORY Final Result [facility] [address] [address] [place] [address] documented in this encounter Visit Diagnoses Diagnosis Moderate episode of recurrent major depressive disorder ([facility]/HCC [facility])- Primary Dehydration Hyperglycemia Other abnormal glucose documented in this encounter Additional Health Concerns Assessment Noted Time PHQ-9 Depression Total Score: 9 06/08/19 23 7:01 AM CDT documented as of this encounter Care Teams Yarn Comber Relationship Specialty [place] [address] [facility] [address] [place] [address] PCP - General FAMILY PRACTICE 06/01/21 documented as of this encounter
--- OUTSIDE RECORDS SUMMARY | 2024-02-01 17:01 | XMS_ITS | Encounter Summary ---
Author Organization [facility] Address [facility] [place] [address] [place] [address] Care Team Providers Care Vp Of Global Marketing Name Role Phone Stefania Bean MD Primary Care Provider [phone] Reason for Referral * Surgical (Routine) - New Request Specialty Diagnoses / Procedures Referred By Jim brannon Referred To Contact Diagnoses Screening for colon cancer Procedures Case request operating room: COLONOSCOPY DIAGNOSTIC WITH/WITHOUT SPECIMEN BRUSH/WASH Harvey Pradhan MD [address] [place] [address] [place] [address] Phone: tel: fax: Referral ID Status Reason Start Date Expiration Date V isits Requested Visits Authorized [id number] New Request 07/01/2023 06/30/2024 1 1 Encounter Details Date Type Department Care Team (Late st Contact Info) Description 07/01/2023 Orders Only [facility] Multispecialty Care - [address] [place] [address] Harvey Pradhan MD [address] [place] [address] [place] [address] [id number] Social History Tobacco Use Types Packs/Day Years [...] Description 07/23/2024 9:00 AM CDT Office Visit [facility] Family & Internal Medicine [facility] [address] [place] [address] [place] [address] [facility]. [address] [place] [id number] Scheduled Orders Name Type Priority Associated Diagnoses Orde r Schedule Case request operating room: COLONOSCOPY DIAGNOSTIC WITH/WITHOUT SPECIMEN BRUSH/WASH Case Request Routine Screening for colon cancer Ordered: 07/01/2023 documented as of this encounter Visit Diagnoses Diagnosis Screening for colon cancer- Primary Special screening for malignant neoplasms, colon documented in this encounter Additional Health Concerns Assessment Noted Time PHQ-9 Depression Total Score: 8 12/04/19 23 11:13 AM CDT documented as of this encounter Care Teams Vp Of Global Marketing Relationship Specialty [place] [address] [facility]. [address] [place] [id number] PCP - General FAMILY PRACTICE 06/01/21 documented as of this encounter
--- OUTSIDE RECORDS SUMMARY | 2024-02-01 17:01 | XMS_ITS | Encounter Summary ---
Author Organization [facility] Address [facility] [place] [address] [place] [address] Care Team Providers Care Binder Chainstitch Name Role Phone Stefania Bean MD Primary Care Provider [phone] Reason for Visit * Reason Comments Depression 3 month follow up de pression / medication Encounter Details Date Type Department Care Team (Late st Contact Info) Description 09/06/2022 11:00 AM CDT Office Visit [facility] Family & Internal Medicine [facility] [id number] [place] [address] Stefania Bean MD [address] [place] [address]. [address] [place] [address] Depression (3 month follow up depression / medication) Social History Tobacco Use Types Packs/Day [...] Sign Reading Time Taken Comments Blood Pressure 120/89 09/06/2022 10:53 AM CDT Pulse 63 09/06/2022 10:53 AM CDT Temperature 36.4 ??C (97.5 ??F) 09/06/2022 1 0:53 AM CDT Respiratory Rate 16 09/06/2022 10:5 3 AM CDT Oxygen Saturation 98% 09/06/2022 10: 53 AM CDT Inhaled Oxygen Concentration - - Weight 102.2 kg (225 lb 6.4 oz) 023 10:53 AM CDT Height 180.3 cm (5' 11 ) 09/06/2022 10: 53 AM CDT Body Mass Index 31.44 09/06/2022 10:53 AM CDT documented in this encounter Progress Notes * Stefania Bean MD - 09/06/2022 11:00 AM CDT Reason for Visit: Depression (3 month follow up depression / medication) History of Present Illness: HPI Mr. Mio Bernard is a pleasant 47 year old Male with PMH of dysthymia, hx of prediabetes and depression was seen in office today for 3-month follow-up appointment. Since last visit patient has been taking trazodone as prescribed. Also takes Lexapro. He started seeing therapist. Seeing every 2-4 weeks. states he sleeps better. He is less restless.snoring has resolved. He states he is taking trazodone x 25 mg at bedtime instead of 50 mg. Trazodone however does make him drowsy when he wakes up. Denies any other medication side effects. No other concerns for today. ROS: Review [...] for dizziness, tingling, syncope and numbness. Psychiatric/Behavioral: Negative for behavioral problems. Medications: Current Outpatient Medications: escitalopram (LEXAPRO) 10 MG tablet, Take 1 tablet (10 mg total) by mouth daily., Disp: 30 tablet, Rfl: 5 traZODone (DESYREL) Tab 25 mg (50 mg split tab), Take half to one tablet at bedtime daily., Disp: 30 split tab, Rfl: 5 vitamin D2, ergocalciferol, (DRISDOL) 1.25 mg capsule, 50,000 units weekly for 12 weeks. Continue vitamin D 1,000 units for 3 to 6 months after this date., Disp: 12 capsule, Rfl: 0 vitamin D2, ergocalciferol, (DRISDOL) 65185 UNITS capsule, Take 1 capsule (50,000 Units total) by mouth every 7 days., Disp: 12 capsule, Rfl: 0 Review [...] baseline. Psychiatric: Mood and Affect: Mood normal. Mood is not anxious or depressed. Affect is not tearful. Behavior: Behavior normal. Thought Content: Thought content does not include homicidal or suicidal ideation. Thought content does not include homicidal or suicidal plan. CONNOR-7 (Generalized Anxiety Disorder) Screening 04/26/2022 3:40 PM 09/06/2022 10:59 AM CONNOR-7 Feeling nervous, anxious, or on edge 0 Not being able to stop or control worrying 0 Worrying too much about different things 0 Trouble relaxing 1 Being so restless that it is hard to sit still 0 Becoming easily annoyed or irritable 1 Feeling afraid as if something awful might happen 0 CONNOR-7 Total Score 2 How difficult have these problems made it for you to do your work, take care of things at home, or get along with other people? Not difficult at all Feeling nervous, anxious and on edge 2 - more than half the days Not being able to stop or control worrying 0 - not at all Worrying too much about different things 0 - not at all Trouble Relaxing 2 - more than half the days Being so restless that it's hard to sit still 2 - more than half the days Becoming easily annoyed or irritable 2 - more than half the days Feeling afraid as if something awful might happen 1 - several days Total Score 9 If you checked off any problems, how difficult have those problems made it for you to do your work take care of things at home or get along with other people? very difficult Filed Vitals: 09/06/22 1053 BP: 120/89 Pulse: 63 Resp: 16 Temp: 97.5 ??F (36.4 ??C) TempSrc: Temporal SpO2: 98% Weight: 102.2 kg (225 lb 6.4 oz) Height: 5' 11 (1.803 m) Diagnoses/Impression: 1. Moderate episode of recurrent major depressive disorder (CMS/HCC) traZODone (DESYREL) Tab 25 mg (50 mg split tab) escitalopram (LEXAPRO) 10 MG tablet Recommendations and Plan: 1. Moderate episode of recurrent major depressive disorder (CMS/HCC) Connor 2, discussed with patient. No anxiety. Chronic. Improved. Continue therapy. Cut down trazodone 12.5 mg nightly given drowsiness and fatigue. Can increase to 25 mg daily if symptoms return - traZODone (DESYREL) Tab 25 mg (50 mg split tab); Take half to one tablet at bedtime daily. Dispense: 30 split tab; Refill: 5 - escitalopram (LEXAPRO) 10 MG tablet; Take 1 tablet (10 mg total) by mouth daily. Dispense: 30 tablet; Refill: 5 Follow-up in 6 months. Earlier if needed. [...] [facility] Family & Internal Medicine [facility] [address] [place] [address] [place] [address] [facility]. [address] [place] [address] documented as of this encounter Visit Diagnoses Diagnosis Moderate episode of recurrent major depressive disorder (CMS/HCC [facility]/HCC) documented in this encounter Additional Health Concerns Assessment Noted Time PHQ-9 Depression Total Score: 4 09/07/19 23 10:58 AM CDT documented as of this encounter Care Teams Binder Chainstitch Relationship Specialty [place] [address] [facility]. [address] [place] [address] PCP - General FAMILY PRACTICE 06/01/21 documented as of this encounter
--- OUTSIDE RECORDS SUMMARY | 2024-02-01 17:01 | XMS_ITS | Encounter Summary ---
Author Organization [facility] Address [facility] [place] [address] [place] [address] Care Team Providers Care Power Brake Operator Name Role Phone Stefania Bean MD Primary Care Provider [phone] Encounter Details Date Type Department Care Team (Latest Contact Info) Description 06/05/2021 Travel Social History Tobacco Use Types Packs/Day Years Used Date Smoking Tobacco: Never Smokeless Tobacco: Never Alcohol Use Standard Drinks/Week Comments Not Currently 0 (1 standard drink = 0.6 oz pur e alcohol) PHQ-2 Answer Date Recorded PHQ-2 Score - If the patient scores above 3, please move on to questions 3-9 0 06/05/2021 Sex and Gender Information Value Date Recorded Sex Assigned at Not on file Legal Sex Male 9:21 AM CDT Gender Identity Not on file Sexual Orientation Not on file COVID-19 Exposure Response Date Recorded In the last 10 days, have yo u been in contact with someone who was confirmed or suspected to have Coronavirus/COVID-19? No / Unsure 06/05/2021 8:05 AM CDT documented as of this encounter Plan of Treatment Upcoming Encounters Date Type Department Care Team (Late st Contact Info) Description 07/23/2024 9:00 AM CDT Office Visit [facility] Family & Internal Medicine [facility] [address] [place] [address] [place] [id number] [place] [address]. [address] [place] [address] documented as of this encounter Visit Diagnoses Not on filedocumented in this encounter Additional Health Concerns Assessment Noted Time PHQ-9 Depression Total Score: 11 021 9:59 AM CDT documented as of this encounter Care Teams Power Brake Operator Relationship Specialty [place] [address] [address] [place], [place] [id number] PCP - General FAMILY PRACTICE 06/01/21 documented as of this encounter
--- OUTSIDE RECORDS SUMMARY | 2024-02-01 17:01 | XMS_ITS | Encounter Summary ---
Author Organization [facility] Address [facility] [place] [address] [place] [address] Care Team Providers Care Rewriter Name Role Phone Jalen Coughlin MD Primary Care Provider [phone] Encounter Details Date Type Department Care Team (Latest Contact Info) Description 02/11/2021 Travel Social History Tobacco Use Types Packs/Day [...] COVID-19? No / Unsure 02/11/2021 3:57 PM TICKET SORTER documented as of this encounter Plan of Treatment Upcoming Encounters Date Type Department Care Team (Late st Contact Info) Description 07/23/2024 9:00 AM CDT Office Visit [facility] Family & Internal Medicine [facility] [address] [place] [address] [place] [address] [facility]. [address] [place] [address] documented as of this encounter Visit Diagnoses Not on filedocumented in this encounter Additional Health Concerns Assessment Noted Time PHQ-9 Depression Total Score: 11 021 9:59 AM CDT documented as of this encounter Care Teams Rewriter Relationship Specialty Start Date End Date Jalen Coughlin MD PCP - General INTERNAL MEDICINE 08/25/20 05/31/21 documented as of this encounter
--- OUTSIDE RECORDS SUMMARY | 2024-02-01 17:01 | XMS_ITS | Encounter Summary ---
Author Organization [facility] Address [address] [place] [address]. [place], [place] [address] [place] [address] Care Team Providers Care Transactional Attorney Name Role Phone Stefania Bean MD Primary Care Provider [phone] Reason for Visit * Reason Comments Follow Up Est. care with Dr. Hai chester. Med Refills Encounter Details Date Type Department Care Team (Late st Contact Info) Description 06/05/2021 8:20 AM CDT Office Visit [facility] Family & Internal Medicine [address] [address] [place] [id number] [place] [address]. [address] [place] [address] Follow Up (Est. care with Dr. Bean. ); Med Refills Social History Tobacco Use Types Packs/Day Years [...] Sign Reading Time Taken Comments Blood Pressure 122/74 06/05/2021 8:07 AM CDT Pulse 58 06/05/2021 8:07 AM CDT Temperature 36.2 ??C (97.2 ??F) 06/05/2021 8:07 AM CD T Respiratory Rate 18 06/05/2021 8:07 AM CDT Oxygen Saturation 96% 06/05/2021 8:07 AM CDT Inhaled Oxygen Concentration - - Weight 102.5 kg (226 lb) 06/05/2021 8:07 AM CDT Height 180.3 cm (5' 11 ) 06/05/2021 8:07 AM CDT Body Mass Index 31.52 06/05/2021 8:07 AM CDT documented in this encounter Patient Instructions * Patient Instructions* Stefania Bean MD - 06/05/2021 8:20 AM CDT Please try breathe easy nasal strips again every night, documented in this encounter Progress Notes * Eric Morris MA - 06/05/2021 8:20 AM CDTAddended by: ERIC MORRIS on: 06/05/2021 09:12 AM Modules accepted: Orders, SmartSet * Stefania Bean MD - 06/05/2021 8:20 AM CDT Reason for Visit: Follow Up (Est. care with Dr. Bean. ) and Med Refills History of Present Illness: HPI Mr. Mio Bernard is a pleasant 46 year old Male who was seen in clinic today to establish care. His previous PCP has relocated. He was started on sertraline for low energy. Concerns for mild depression. This helped. Mood-good Sleep- denies. He works at [employer] in [place] and does Swing shifts, so irregular cycle, Appetite- good. He has been diagnosed with sleep apnea.Last Sleep study was in [facility]. He was on CPAP machine 10 years ago. It was uncomfortable so he stopped it. It did not improve his sleep. At that time noticed apneas. She states he does not do that anymore. He does have knee pains sometimes- due to stairs at work sometimes and takes as needed OTC meds Family hx positive for diabetes. HE DOES SEE GI DR. BECK No other concerns for today,. ROS: Review of Systems Constitutional: Negative for [...] syncope and numbness. Psychiatric/Behavioral: Negative for behavioral problems, depression, sleep disturbance and suicidal ideas. The patient is not nervous/anxious. Medications: Current Outpatient Medications: ??? [START ON 06/22/2021] sertraline 50 MG tablet, Take 1 tablet (50 mg total) by mouth daily., Disp:90 tablet, Rfl: 3 No Known Allergies Past Medical History: Diagnosis Date ??? Allergy seasonal ??? COVID-19 12/2019 ??? Depression ??? Sleep apnea History reviewed. No pertinent surgical history. Social History Socioeconomic History ??? Marital status: Spouse name: Not on file ??? Number of children: Not on file ??? Years of education: Not on file ??? Highest education level: Not on file Occupational History ??? Not on file Tobacco Use ??? Smoking status: Never Smoker ??? Smokeless tobacco: Never Used Vaping Use ??? Vaping Use: Never used Substance and Sexual Activity ??? Alcohol use: Not Currently ??? Drug use: Never ??? Sexual activity: Not on file Other Topics Concern ??? Not on file Social History Narrative Lives with and family Social Determinants of Health Financial Resource Strain: Not on file Food Insecurity: Not on file Transportation Needs: Not on file Physical Activity: Not on file Stress: Not on file Social Connections: Not on file Intimate Partner Violence: Not on file E-Cigarettes Questions Responses E-Cigarette Use Never User Family History Problem Relation Name Age of Onset ??? Heart Disease Other family history Family Status Relation Name Status ??? Mother Alive ??? Father ??? Other family history Alive Physical Exam Vitals reviewed. Constitutional: Appearance: Normal appearance. He is normal weight. HENT: Head: Normocephalic and atraumatic. Right Ear: Patient is experiencing impacted cerumen right. Left Ear: Tympanic membrane normal. Nose: Nose normal. Comments: Deviated nasal septum towards the left Mouth/Throat: Mucous membranes are moist. Oropharynx is clear. Comments: Mallampati class 3 Eyes: Conjunctiva/sclera: Conjunctivae normal. Pupils: Pupils are equal, round, and reactive to light. Cardiovascular: Rate and Rhythm: Normal rate and regular rhythm. Pulmonary: Effort: Pulmonary effort is normal. No respiratory distress. Breath sounds: Normal breath sounds. No wheezing. Musculoskeletal: Right lower leg: No edema. Left lower leg: No edema. Neurological: General: No focal deficit present. Mental Status: He is alert and oriented to person, place, and time. Psychiatric: Mood and Affect: Mood normal. Behavior: Behavior normal. Thought Content: Thought content normal. Judgment: Judgment normal. MADHAV-7 (Generalized Anxiety Disorder) Screening MADHAV-7 08/25/2020 [...] with other people? not difficult at all PHQ-2 Score PHQ-2 Score: 0 Filed Vitals: 06/05/21 0807 BP: 122/74 Pulse: 58 Resp: 18 Temp: 97.2 ??F (36.2 ??C) TempSrc: Temporal SpO2: 96% Weight: 102.5 kg (226 lb) Height: 5' 11 (1.803 m) Diagnoses/Impression: 1. Encounter to establish care with new doctor VENIPUNC ARM DRAW 2. DAVION (obstructive sleep apnea) VENIPUNC ARM DRAW 3. Dysthymia Chronic sertraline 50 MG tablet VENIPUNC ARM DRAW 4. Elevated glucose HEMOGLOBIN, GLYCOSYLATED VENIPUNC ARM DRAW 5. Need for hepatitis C screening test HEPATITIS C ANTIBODY ([facility] ONLY) VENIPUNC ARM DRAW 6. Annual physical exam VENIPUNC ARM DRAW 7. Impacted cerumen of right ear 8. Screening for HIV (human immunodeficiency virus) HIV AG/AB, 4TH GEN W/RFX ([facility] ONLY) VENIPUNC ARM DRAW 9. Vitamin D deficiency VITAMIN D, 25 OH Recommendations and Plan: 1. Encounter to establish care with new doctor 6. Annual physical exam 2. DAVION (obstructive sleep apnea) Asymptomatic. Hx of being on CPAP -Advised nasal strips and flonase -Reconsider sleep study in future for follow up advised 3. Dysthymia Well controlled. Continue sertraline, refills sent 4. Elevated glucose Last A1c 5.7 Family hx positive for diabetes. 5. Need for hepatitis C screening test -labs today 7. Impacted cerumen of right ear On examination the Right ear(s) has a moderate amount of cerumen. Ear flush completed using [facility] withoutcomplications. RIGHT TM and ear canal are intact. Patient instructed to call if having ear pain, bleeding or decreased hearing. 8. Screening for HIV (human immunodeficiency virus) -labs today Follow up in 1 year for annual. He voiced understanding and agrees with the plan. All questions answered. Orders Placed This Encounter ??? VENIPUNC ARM DRAW ??? HEMOGLOBIN, GLYCOSYLATED ??? HEPATITIS C ANTIBODY ([facility] ONLY) ??? HIV AG/AB, 4TH GEN W/RFX ([facility] ONLY) ??? VITAMIN D, 25 OH ??? sertraline 50 MG tablet Reviewed and updated this visit by provider: Meds Problems Stefania Bean MD Referring Provider: No ref. provider found PCP: Stefania Bean MD documented in this encounter Plan of Treatment Upcoming Encounters Date Type Department Care Team (Late st Contact Info) Description 07/23/2024 9:00 AM CDT Office Visit [facility] Family & Internal Medicine - [place] [address] [place] [address] [place] [address] [address] [place] [address] documented as of this encounter Procedures Procedure Name Priority Date/Time Associated Diagnosis Comments VITAMIN D, 25 OH Routine 06/05/2021 8:45 AM CDT Vitamin D deficiency VENIPUNC ARM DRAW Routine 06/05/2021 8:3 9 AM CDT Encounter to establish care with new doctor DAVION (obstructive sleep apnea) Dysthymia Elevated glucose Need for hepatitis C screening test Annual physical exam Screening for HIV (human immunodeficiency virus) HEPATITIS C ANTIBODY W/RFX TO HCV RNA Routine 06/05/2021 8:38 AM CDT Need for hepatitis C screening test HIV AG/AB, 4TH GEN W/RFX Routine 06/05/2021 8:38 AM CDT Screening for HIV (human immunodeficiency virus) HEMOGLOBIN, GLYCOSYLATED Routine 06/05/2021 8:38 AM CDT Elevated glucose documented in this encounter Results * (ABNORMAL) VITAMIN D, 25 OH (06/05/2021 8:45 AM CDT) VITAMIN D 25 HYDROXY TOTAL S/P/B 17.7(L) >29.9 ng/mL [facility] Comment: Vitamin D, 25-Hydroxy reports concentrations of [...] 150 ng/mL before there is any concern. [address] Bischoff-ferrari HA et al. Evaluation, treatment, and prevention of vitamin D deficiency: an Endocrine Society clinical practice guideline. J Clin Endocrinol Metab. 2011;96(7):1911-30.This test is performed by a Liquid Chromatography-Tandem Mass Spectrometry (LC-MS/MS) method. This test was developed and its performance characteristics determined by the [facility]. It has not been cleared or approved by the U.S. FDA. The [employer]. is regulated under Clinical Laboratory Improvement Amendments [...] 150 ng/mL before there is any concern. [address], José MONTANA et al., Evaluation, treatment, and prevention of vitamin D deficiency: an Endocrine Society clinical practice guideline. J Clin. Endocrinol. Metab. 2011;96(7):1911-30. VITAMIN D 25 HYDROXY D3 S/P/B 17.7 ng/mL [facility]. Comment: This test was developed and its analytical performance characteristics have been determined by [facility]. It has not been cleared or approved by the FDA. This assay has been validated pursuant to the CLIA regulations and is used for clinical purposes. VITAMIN D 25 HYDROXY D2 S/P/B <1.0(L) ng/mL [facility]. Comment: This test was developed and its analytical performance characteristics have been determined by [facility]. It has not been cleared or approved by the FDA. This assay has been validated pursuant to the CLIA regulations and is used for clinical purposes. 06/05/2021 8:45 AM CDT 06/06/2021 4:44 AM CDT Stefania Bean MD LABORATORY Final Result [facility] [place] [facility] [address], [address] [place] [address] * HIV AG/AB, 4TH GEN W/RFX ([facility] ONLY) (06/05/2021 8:38 AM CDT) HIV 1/2 AB+ HIV1 P24 AG NON-REACT MARQUISE NON-REACT MARQUISE [facility] [place] Comment: HIV-1 antigen and HIV-1/HIV-2 antibodies were not detected. There is no laboratory evidence of HIV infection. PLEASE NOTE: This information has been disclosed to you from records whose confidentiality may be protected by state law. ??If your state requires such protection, then the state law prohibits you from making any further disclosure of the information without the specific written consent of the person to whom it pertains, or as otherwise permitted by law. A general authorization for the release of medical or other information is NOT sufficient for this purpose. ?? For additional information please refer to http://education.reMail.Trusper/faq/CVB723 (This link is being provided for informational/ educational purposes only.) The performance of this assay has not been clinically validated in patients less than 2 years old. 06/05/2021 8:38 AM CDT 06/06/2021 6:36 AM CDT Stefania Bean MD LABORATORY Final Result [facility] [place] [facility] [address] [place] [address] * HEPATITIS C ANTIBODY ([facility] ONLY) (06/05/2021 8:38 AM CDT) Pathologist [facility] HEPATITIS C AB NON-REACTI VE NON-REACT MARQUISE [facility] SIGNAL TO CUTOFF 0.01 <[address] [facility] Comment: HCV antibody was non-reactive. There is no laboratory evidence of HCV infection. In most cases, no further action is required. However, if recent HCV exposure is suspected, a test for HCV RNA (test code 35241) is suggested. For additional information please refer to http://education.Exotel/faq/LKK72j6 (This link is being provided for informational/ educational purposes only.) 06/05/2021 8:38 AM CDT 06/06/2021 6:36 AM CDT Stefania Bean MD LABORATORY Final Result [facility] [place] [facility] [facility] [address] [place] [address] * HEMOGLOBIN, GLYCOSYLATED (06/05/2021 8:38 AM CDT) [facility] HGB A1C 5.5 <5.7 % of total Hgb [facility] Comment: For the purpose of screening for the presence of diabetes: <5.7% ? Consistent with the absence of diabetes 5.7-6.4% ?Consistent with increased risk for diabetes ?(prediabetes) > or =6.5% ??Consistent with diabetes This assay result is consistent with a decreased risk of diabetes. Currently, no consensus exists regarding use of hemoglobin A1c for diagnosis of diabetes in children. According to [place] Diabetes Association (ADA) guidelines, hemoglobin A1c <7.0% represents optimal control in non- diabetic patients. Different metrics may apply to specific patient populations. Standards of Medical Care in Diabetes(ADA). ?? 06/05/2021 8:38 AM CDT 06/06/2021 6:36 AM CDT Stefania Bean MD LABORATORY Final Result [facility] [place] [facility] [address] [address] [place] [address] documented in this encounter Visit Diagnoses Diagnosis Encounter to establish care with new doctor- Primary Other reasons for seeking consultation DAVION (obstructive sleep apnea) Obstructive sleep apnea (adult) (pediatric) Dysthymia Dysthymic disorder Elevated glucose Other abnormal glucose Need for hepatitis C screening test Special screening examination for other specified viral diseases Annual physical exam Routine general medical examination at a health care facility Impacted cerumen of right ear Impacted cerumen Screening for HIV (human immunodeficiency virus) Special screening examination for other specified viral diseases Vitamin D deficiency Unspecified vitamin D deficiency Need for yqsoawczsz-pvyowyy-viocffout (Tdap) vaccine Need for prophylactic vaccination with combined bfwcapwzyc-dayield-urbtmonma (DTP) vaccine documented in this encounter Additional Health Concerns Assessment Noted Time PHQ-9 Depression Total Score: 11 021 9:59 AM CDT documented as of this encounter Care Teams Transactional Attorney Relationship Specialty [place] [address] [facility] [address] [place] [address] PCP - General FAMILY PRACTICE 06/01/21 documented as of this encounter
--- OUTSIDE RECORDS SUMMARY | 2024-02-01 17:01 | XMS_ITS | Encounter Summary ---
Author Organization [facility] Address [facility] [facility] [place] [address] [place] [address] Care Team Providers Care Coil Winder Name Role Phone Stefania Bean MD Primary Care Provider Reason for Visit * Auth/Cert Specialty Diagnoses / Procedures Referred By Jim brannon Referred To Contact Diagnoses Screening for colon cancer screening colonoscopy Procedures COLONOSCOPY FLX DX W/COLLJ SPEC WHEN PFRMD COLONOSCOPY DIAGNOSTIC WITH/WITHOUT SPECIMEN BRUSH/WASH Yenny Pradhan MD [address] [address] Phone: tel: fax: Referral ID Status Reason Start Date Expiration Date Visits Re quested Visits Authorized [id number] 1 1 Encounter Details Date Type Department Care Team (Late st Contact Info) Description 08/26/2023 10:55 AM CDT - 08/26/2023 11:19 AM CDT Surgery [facility] [id number] [place] [address] Yenny Pradhan MD [address] [place] [address] [place] [address] [place] [address] [phone] Colonoscopy with polypectomy Surgery Details Date/Time Status Location OR Service Patient Class Case Class Case Type Trauma Case? 08/26/2023 10:55 AM Posted [facility] OR Endo Gastroenterology Short Stay/Outpa tient Surgery No Panel 1 Procedure LRB Anes Op Region Wound Class Comments Colonoscopy with polypectomy N/A Monitor Anesthesia Care Clean Contaminated Sigmoid colon polyp (cold snare) Surgeon Surgeon Role Service Panel Yenny Pradhan MD Primary Gastroenterology 1 Case Notes C documented in this encounter Social History Tobacco Use Types Packs/Day Years [...] Sign Reading Time Taken Comments Blood Pressure 131/75 08/26/2023 9:52 AM CDT Pulse 54 08/26/2023 9:52 AM CDT Temperature 36.2 ??C (97.1 ??F) 08/26/2023 9:52 AM CD T Respiratory Rate 16 08/26/2023 9:52 AM CDT Oxygen Saturation 100% 08/26/2023 9:52 AM CDT Inhaled Oxygen Concentration - - Weight 104.3 kg (230 lb) 08/19/2023 8:59 AM CDT Height 180.3 cm (5' 11 ) 08/19/2023 8:59 AM CDT Body Mass Index 32.08 08/19/2023 8:59 AM CDT documented in this encounter Discharge Instructions * Attachments The following attachments cannot be sent through Care Everywhere. * Colon Polypectomy Discharge Instructions (Slovenian) * Moderate Sedation in Adults Discharge Instructions (Slovenian) documented in this encounter Medications at Time [...] Consult: Screening colonoscopy History of Present Illness: Mio Bernard is a 48-year-old same Patient Active [...] Pradhan MD - 08/26/2023 11:51 AM CDT HS OpNote Colonoscopy with polypectomy Procedure Note Miolashae Bernard 08/26/2023 1055 Procedure(s) (LRB): Colonoscopy with polypectomy (N/A) Surgeon(s): Yenny Pradhan MD Staff: Circulating Nurse 1: Ondina Martin RN Scrub Person 1: Kita Rodriguez CST Anesthesia: Monitor Anesthesia Care SHEET METAL TECHNICIAN: Amina Babin CRNA Pre-Op Diagnosis: screening colonoscopy [...] Description 07/23/2024 9:00 AM CDT Office Visit [facility] Medical [facility] Family & Internal Medicine [address] [address] Stefania Bean MD [address] [place] [address]. [address] [place] [address] documented as of this encounter Procedures Procedure Name Priority Date/Time Associated Diagnosis Comments COLONOSCOPY FLX DX W/COLLJ SPEC WHEN PFRMD 08/26/2023 11:28 AM CDT Screening for colon cancer Case Notes C PATHOLOGY Routine 08/26/2023 12:00 AM CDT documented in this encounter Results * Pathology (08/26/2023 12:00 AM CDT) PATHOLOGY [facility] ? Department of Laboratory Medicine ?[address] ?[place] [address] ? , extension [phone] ? Pathology Report ? Surgical Pathology Report Name: MIO BERNARD ?Specimen #: [id number] Age: 3 1975 (Age: 48) ?Location: [facility] Sex: M ?Procedure Date: 08/26/2023 Hospital #: [id number] ?Date Received: 08/29/2023 Date Reported: 08/31/2023 Provider: YENNY PRADHAN MD Source: Colon, sigmoid, polyp Clinical History: Screening. Gross Description: Received in formalin, labeled with a patient label and as colon polyp is a 0.3 cm sheet of pink-guzman tissue. ??The specimen is entirely submitted in cassette 1. Gross examination (when applicable) was performed at [facility], [address] [place] [address], [place] [address]. This case was interpreted and signed out at [facility], [address] [place] [address], [place] [address]. FINAL DIAGNOSIS: Colon polyp, sigmoid, polypectomy: ? -Hyperplastic polyp Deeper levels performed. Electronically Signed Out ? DANIS MICHAEL MD [facility] TISSUE COLON STRUCTURE / Unknown 08/26/2023 11:49 AM CDT us Yenny Pradhan MD PATHOLOGY/CYTOLOGY ORDERABLES Fi nal Result [facility] [address] [place] [address], [id number] documented in this encounter Visit Diagnoses Diagnosis Screening for colon cancer- Primary Special screening for malignant neoplasms, colon Screening for colon cancer Special screening for [...] CRNA)1217 (Infusion Stop Time - Provider: Skyla Blackman, MARGIE) documented in this encounter Additional Health Concerns Assessment Noted Time PHQ-9 Depression Total Score: 8 12/04/19 23 11:13 AM CDT documented as of this encounter Care Teams Coil Winder Relationship Specialty [place] [address] [facility] [facility] [address] [place] [address] PCP - General FAMILY PRACTICE 06/01/21 documented as of this encounter
--- OUTSIDE RECORDS SUMMARY | 2024-02-01 17:01 | XMS_ITS | Encounter Summary ---
Author Organization [facility] Address Critical access hospital6 [facility] [place] [address] [place] [address] Care Team Providers Care Senior Product Development Engineer Name Role Phone Stefania Bean MD Primary Care Provider Reason for Visit * Auth/Cert Specialty Diagnoses / Procedures Referred By Jim rbannon Referred To Contact Diagnoses Screening for colon cancer screening colonoscopy Procedures COLONOSCOPY FLX DX W/COLLJ SPEC WHEN PFRMD COLONOSCOPY DIAGNOSTIC WITH/WITHOUT SPECIMEN BRUSH/WASH Harvey Pradhan MD [address] [address] Phone: tel: fax: Referral ID Status Reason Start Date Expiration Date Visits Re quested Visits Authorized [id number] 1 1 Encounter Details Date Type Department Care Team (Late Contact Info) Description 08/26/2023 11:30 AM CDT Anesthesia Event [facility] [address] [place] [address] Amina Babin CRNA [address] [place] [address] Mary Ellen Bryant CRNA [address], [address] [place] [address] Anesthesia Record Procedure Summary Procedure Name Responsible Anesthesiologist Anesthesia Start Time Anesthesia Stop Time Colonoscopy with polypectomy Amina Babin CRNA 08/26/23 1130 08/26/23 1151 Events Date Time Event Comment 08/26/2023 1044 1044 AN EMERGENCY MEDICINE NURSE PRACTITIONER Prepped 1130 An Start Patient ID and consent checked and patient reassessed. 1130 An Start Data 1130 AN Immediate Reassess The jeanne dimas was reevaluated immediately before sedation or regional anesthesia. 1130 Nasal Cannula Applied 1130 Anesthesia Ready 1151 Nasal Cannula Removed 1151 an stop data 1151 An Stop 1151 Post Anesthetic Care Handoff I completed my handoff to the receiving nurse during which we: 1. Identified the patient 2. Identified the responsible provider 3. Reviewed the pertinent medical history 4. Discussed the surgical course 5. Reviewed intra-op anesthesia management and issues during anesthesia 6. Set expectations for post-procedure period 7. Allowed opportunity for questions and acknowledgement of understanding. Meds Name Total lidocaine (PF) (XYLOCAINE) 1% injection 50 mg propofol (DIPRIVAN) 200 mg/20 mL injecti on 225 mg lactated ringers infusion 0 mL * Agents Name O2 * Blood No blood administrations on file. Lines, Drains, and Airways Type Details Placement Removal Peripheral IV Orientation: Right; Location: Antecubital; Removal Date: 08/26/23; Removal Time: 12208/26/23 1002 by 08/26/23 1228 by Skyla Blackman RN Peripheral IV Placement Date: 08/14 04/09; Placement Time: 0957; Placed Outside of This Facility?: No; Size: 22 G; Orientation: Distal, Right; Site Prep: Chlorhexidine; Insertion attempts: 2; Patient Tolerance: Tolerated well; Removal Date: 08/26/23; Removal Time: 1228 08/26/23 0957 by Leyla Rodriguez RN 08/26/23 1228 by Skyla Blackman RN documented in this encounter Social History Tobacco [...] on file documented as of this encounter OR Notes * Anesthesia Postprocedure Evaluation - Amina Babin CRNA - 08/26/2023 11:52 AM CDT Anesthesia Post-op Note Mio Bernard Procedure(s): Colonoscopy with polypectomy Anesthesia type: MAC Vitals: 08/26/23951 BP: 131/75 Vitals: 08/26/23951 Pulse: (!) 54 Vitals: 08/26/23951 Resp: 16 Vitals: 08/26/23951 Temp: 36.2 ??C Vitals: 08/26/23951 SpO2: 100% Patient Location: Phase II/Outpatient Level of Consciousness: awake, alert and oriented Pain Management: adequate analgesia Airway Patency: patent Respiratory Status: acceptable Cardiovascular Status: acceptable Post-Op Nausea: none Postoperative Hydration: euvolemic There were no known notable events for this encounter. * Anesthesia Preprocedure Evaluation - Amina Babin CRNA - 08/19/2023 12:01 PM CDT Anesthesia ROS/MED History Reviewed: Patient summary , Nursing notes , Family history anesthesia, Anesthesia history , Medications Pre-Anesthetic State: alert, awake and responds appropriately Pulmonary (+) sleep apnea Cardiovascular Exercise tolerance:good Neuro/Psych (+) depression Comments: Gender Identity Disorder (per chart) Substance Use GI/Hepatic/Renal Endo/Other (+) obese NPO Status: Physical Evaluation Airway Mallampati: II TM Distance: >3 FB Neck ROM: normal Dental No notable dental history Pulmonary Breath sounds clear to auscultation Cardiovascular Rhythm: regular Rate: normal STOP-Bang Assessment: Anesthesia Plan ASA 2 Intravenous Induction Anesthesia type: MAC Plan for Airway: nasal cannula/simple face mask Plan for Post-op Pain Plan: as per surgeon Informed Consent Anesthetic plan and risks discussed with patient of whom consent was obtained. Consent of blood products not discussed. . documented in this encounter Plan of Treatment Upcoming Encounters Date Type Department Care Team (Late st Contact Info) Description 07/23/2024 9:00 AM CDT Office Visit [facility] Family & Internal Medicine - [address] [address] [place] [address] [place] [address] documented as of this encounter Visit Diagnoses Not on filedocumented in this encounter Administered Medications Inactive Administered Medications - up to 3 most recent administrations Medication Order MAR Action Action Date Dose Rate Site lactated ringers infusion at 10 mL/hr, Intravenous, Continuous, Starting on Tue08/26/23 at 1000, Until Tue08/26/23 at 1441, Infuse at TKO rate, Pre-Op Continued by Anesthesia 08/26/2023 11:30 AM CDT 10 mL/hr New Bag 08/26/2023 10:02 AM CDT 10 mL/hr lidocaine (PF) (XYLOCAINE) 1 % injection Intravenous, PRN, Starting on Tue08/26/23 at 1135, Until Tue08/26/23 at 1151, Anesthesia Intra-Op Given 08/26/2023 11:35 AM CDT 50 mg propofol (DIPRIVAN) IV bolus Intravenous, PRN, Starting on Tue08/26/23 at 1135, Until Tue08/26/23 at 1151, Anesthesia Intra-Op Given 08/26/2023 11:48 AM CDT 25 mg Given 08/26/2023 11:46 AM CDT 25 mg Given 08/26/2023 11:44 AM CDT 25 mg documented in this encounter Additional Health Concerns Assessment Noted Time PHQ-9 Depression Total Score: 8 12/04/19 23 11:13 AM CDT documented as of this encounter Care Teams Senior Product Development Engineer Relationship Specialty [place] [address] [place] [address] PCP - General FAMILY PRACTICE 06/01/21 documented as of this encounter
--- OUTSIDE RECORDS SUMMARY | 2024-02-01 17:01 | XMS_ITS | Encounter Summary ---
Author Organization [facility] Address [facility] [place] [address] [place] [address] Care Team Providers Care Mix Chemist Name Role Phone Jalen Coughlin MD Primary Care Provider [phone] Encounter Details Date Type Department Care Team (Latest Contact Info) Description 08/25/2020 1:34 PM CDT - 08/25/2020 11:59 PM CDT Hospital Encounter [facility] [address] [place], [place] [id number] Jalen Coughlin MD [address] [address] Discharge Disposition: Home or Self Care (Routine [...] AM CDT documented as of this encounter Medications at Time of Discharge sertraline 25 MG tabletIndication s:Dysthymia ONE TAB PO QAM. IF TOLERATING, WITHOUT ADEQUATE RELIEF OF SYMPTOMS, INCREASE TO 2 TABS AFTER 7 DAYS 60 tablet 08/25/2020 10/07/2020 documented as of this encounter Progress Notes * Jalen Coughlin MD - 08/25/2020 1:34 PM CDT Results reviewed, normal for patient. Please print letter and mail to patient. Thanks! documented in this encounter Plan of Treatment Upcoming Encounters Date Type Department Care Team (Late st Contact Info) Description 07/23/2024 9:00 AM CDT Office Visit [facility] Family & Internal Medicine [address] [address] [place] [address] [facility] [place] [address] documented as of this encounter Procedures Procedure Name Priority Date/Time Associated Diagnosis Comments TSH W/REFLEX Routine 08/25/2020 10:41 AM CDT Fatigue, unspecified type Dysthymia COMPREHENSIVE METABOLIC PANEL Today 08/25/2020 10:41 AM CDT Fatigue, unspecified type Dysthymia CBC, AUTO, NO DIFF Today 08/25/2020 10 :41 AM CDT Fatigue, unspecified type Dysthymia documented in this encounter Results * (ABNORMAL) COMPREHENSIVE METABOLIC PANEL (08/25/2020 10:41 AM CDT) GLUCOSE 194(H) 70 - 99 MG/DL 08/25/2020 3:13 PM CDT [facility] BUN 13 7 - 18 MG/DL 08/25/2020 3:13 PM CDT [facility] CREATININE S/P/B 1.19 0.7 - 1.3 MG/DL 08/25/2020 3:13 PM CDT [facility] SODIUM S/P/B 144 136 - 145 MMOL/L 08/25/2020 3:13 PM CDT [facility] POTASSIUM S/P/B 4.1 3.5 - 5.1 MMOL/L 08/25/2020 3:13 PM T [facility] CHLORIDE S/P/B 106 100 - 108 MMOL/L 08/25/2020 3:13 PM T [facility] CO2 29.5 21 - 32 MMOL/L 08/25/2020 3:13 PM T [facility] CALCIUM S/P/B 9.1 8.5 - 10.1 MG/DL 08/25/2020 3:13 PM T [facility] BILIRUBIN TOTAL S/P/B 0.3 0.2 - 1.2 MG/DL 08/25/2020 3:13 PM T [facility] TOTAL PROTEIN S/P/B 6.8 6.4 - 8.2 G/DL 08/25/2020 3:13 PM T [facility] ALBUMIN S/P/B 3.8 3.4 - 5.0 G/DL 08/25/2020 3:13 PM [facility] AST 29 15 - 37 U/L 08/25/2020 3:13 PM T [facility] ALT 67(H) 16 - 60 U/L 08/25/2020 3:13 PM T [facility] ALKALINE PHOSPHATASE S/P/B 71 50 - 136 U/L 08/25/2020 3:13 PM T [facility] ANION GAP 8.5 5 - 15 MMOL/L 08/25/2020 3:13 PM T [facility] BUN CREATININE RATIO 10.9 6 - 26 08/25/2020 3:13 PM T [facility] A/G RATIO 1.3 1.0 - 2.0 RATIO 08/25/2020 3:13 PM CDT [facility] EGFR NON-AFR. AMER. 73(L) >90 ML/MIN/1.7 3 M2 08/25/2020 3:13 PM CDT [facility] EGFR AFR. AMER. 85(L) >90 ML/MIN/1.7 3 M2 08/25/2020 3:13 PM CDT [facility] Comment: NOTE: eGFR is not calculated for patients <18 years of age. This is an estimated GFR (CKD EPI) and should not be used for calculating drug doses. 08/25/2020 10:4 1 AM CDT us Jalen Coughlin MD LABORATORY Final Res ult [facility] [address] [place] [address], [place] [phone] * (ABNORMAL) CBC, AUTO, NO DIFF (08/25/2020 10:41 AM CDT) WBC 5.7 4.4 - 11.0 x10'3/uL 08/25/2020 2:23 PM CDT [facility] RBC 4.53 4.50 - 5.90 x10'6/uL 08/25/2020 2:23 PM CDT [facility] HGB 14.2 14.0 - 17.5 G/DL 08/25/2020 2:23 PM CDT [facility] HCT 43.1 41.5 - 50.4 % 08/25/2020 2:23 PM CDT [facility] MCV 95.1 80.0 - 96.0 FL 08/25/2020 2:23 PM CDT [facility] MCH 31.3 26.5 - 31.4 PG 08/25/2020 2:23 PM CDT [facility] MCHC 32.9 31.9 - 34.8 G/DL 08/25/2020 2:23 PM CDT [facility] RDW 12.0(L) 12.3 - 14.3 % 08/25/2020 2:23 PM CDT [facility] PLT 224 151 - 353 x10'3/uL 08/25/2020 2:23 PM CDT [facility] MPV 11.0 9.7 - 11.9 FL 08/25/2020 2:23 PM CDT [facility] 08/25/2020 10:4 1 AM CDT us Jalen Coughlin MD LABORATORY Final Res ult Performing Organization Address City/[facility]/ZIP Co de Phone Number [facility] [address] [place] [address], [place] [phone] * TSH W/REFLEX (08/25/2020 10:41 AM CDT) TSH 0.744 0.358 - 3.74 uIU/ML 08/25/2020 3:13 PM CDT [facility] Comment: HIGH DOSES OF BIOTIN MAY INTERFERE WITH THIS TEST RESULT. CORRELATION TO CLINICAL HISTORY AND PRESENTATION RECOMMENDED. FREE T4 NOT INDICATED 08/25/2020 10:4 1 AM CDT us Jalen Coughlin MD LABORATORY Final Res ult Performing Organization Address City/[facility]/ZIP Co de Phone Number [facility] [address] [place] [address], [place] [phone] documented in this encounter Visit Diagnoses Diagnosis Fatigue, unspecified type Dysthymia Dysthymic disorder documented in this encounter Additional Health Concerns Assessment Noted Time PHQ-9 Depression Total Score: 11 021 9:59 AM CDT documented as of this encounter Care Teams Mix Chemist Relationship Specialty Start Date End Date Jalen Coughlin MD PCP - General INTERNAL MEDICINE 08/25/20 05/31/21 documented as of this encounter
--- OUTSIDE RECORDS SUMMARY | 2024-02-01 17:01 | XMS_ITS | Encounter Summary ---
Author Organization [facility] Address [facility] [place] [address] [place] [address] Care Team Providers Care Irrigator Head Name Role Phone Stefania Bean MD Primary Care Provider [phone] Reason for Visit * Reason Comments Medication Management Encounter Details Date Type Department Care Team (Late st Contact Info) Description 04/11/2023 11:40 AM PARACHUTE RIGGER Office Visit [facility] Family & Internal Medicine [facility] [id number] [place] [address] [place] [address] [place] [address]. [address] [place] [address] Medication Management Social History Tobacco Use [...] Reading Time Taken Comments Blood Pressure 145/87 04/11/2023 11:52 AM PARACHUTE RIGGER Pulse 60 04/11/2023 11:40 AM PARACHUTE RIGGER Temperature 36.7 ??C (98.1 ??F) 04/11/2023 11:[address] Respiratory Rate 18 04/11/2023 11:40 AM PARACHUTE RIGGER Oxygen Saturation 94% 04/11/2023 11:40 AM PARACHUTE RIGGER Inhaled Oxygen Concentration - - Weight 105.2 kg (232 lb) 04/11/2023 11:40 AM PARACHUTE RIGGER Height 180.3 cm (5' 11 ) 04/11/2023 11:40 AM PARACHUTE RIGGER Body Mass Index 32.36 04/11/2023 11:40 AM PARACHUTE RIGGER documented in this encounter Progress Notes * Stefania Bean MD - 04/11/2023 11:40 AM CST Reason for Visit: Medication Management History of Present Illness: HPI Mr. Mio Bernard is a pleasant 47 year old Male with PMH of dysthymia, hx of prediabetes , gender identity DISORDER AND depression was seen in office today for 3-month follow-up appointment. Patient states he is doing okay. Sleeps well. Continues to take one fourth of trazodone 50 mg at bedtime with melatonin. This helps him sleep well. Patient states he has had gender identity disorder since he was a kid. He is currently with2 children. He revealed this to his about THIS AROUND 6 months ago. There has been some tension at home. This leads to some depression. Continues to take Lexapro without side effects his kids do not know yet. He does not plan to tell his current children until they are grown. he states he is not considering gender REAFFIRMATION. Recently had a job physical. States his blood pressure was well-controlled there. Denies any chest pain, ongoing headaches or dizziness. No other concerns for today ROS: Review of Systems Constitutional: Negative for [...] is not nervous/anxious. Medications: Current Outpatient Medications: escitalopram (LEXAPRO) 20 MG tablet, Take 1.5 tablets (30 mg total) by mouth daily., Disp: 45 tablet, Rfl: 5 traZODone (DESYREL) 50 MG tablet, TAKE 1/4 TO 1/2 TABLET BY MOUTH AT BEDTIME, Disp: , Rfl: vitamin D2, ergocalciferol, (DRISDOL) 1.25 mg capsule, [...] at baseline. Psychiatric: Mood and Affect: Mood is depressed. Mood is not anxious. Affect is flat. Affect is not tearful. Speech: Speech normal. Behavior: Behavior normal. Thought Content: Thought content does not include homicidal or suicidal ideation. Thought content does not include homicidal or suicidal plan. Cognition and Memory: Cognition normal. Filed Vitals: 04/11/23 1140 04/11/23 1152 BP: (!) 144/87 (!) 145/87 Pulse: 60 Resp: 18 Temp: 98.1 ??F (36.7 ??C) TempSrc: Temporal SpO2: 94% Weight: 105.2 kg (232 lb) Height: 1.803 m (5' 11 ) Diagnoses/Impression: 1. Elevated blood pressure reading 2. Gender identity disorder, unspecified 3. Colon cancer screening 4. Moderate episode of recurrent major depressive disorder (CMS/HCC) Recommendations and Plan: Depression and gender identity disorder chronic. Recent stressors. Continue Lexapro and trazodone as taking. Reassurance and supportive counseling today. Patient to continue to see his therapist as advised- [facility] [place]. Will be starting marital therapist soon. He is scheduled for colonoscopy x June 2023. Was normotensive at WORK physical last week. Continue to monitor blood pressure. Follow-up in 3 months. Earlier if needed. He voiced understanding and agrees with the plan. All questions answered. Orders Placed This Encounter traZODone (DESYREL) 50 MG tablet Reviewed and updated this visit by provider: Allergies Meds Problems Stefania Bean MD Referring Provider: No ref. provider found PCP: Stefania Bean MD CHUTE RIGGER documented in this encounter Plan of Treatment Upcoming Encounters Date Type Department Care Team (Late st Contact Info) Description 07/23/2024 9:00 AM CDT Office Visit [facility] Family & Internal Medicine [facility] [address] [place] [phone] [place] [address] [facility]. [address] [place] [id number] documented as of this encounter Visit Diagnoses Diagnosis Elevated blood pressure reading- Primary Elevated blood pressure reading without diagnosis of hypertension Gender identity disorder, unspecified Colon cancer screening Special screening for malignant neoplasms, colon Moderate episode of recurrent major depressive disorder (CMS/HCC HHS/HCC) documented in this encounter Additional Health Concerns Assessment Noted Time PHQ-9 Depression Total Score: 8 12/04/19 23 11:13 AM CDT documented as of this encounter Care Teams Irrigator Head Relationship Specialty [place] [address] [facility]. [address] [place] [address] PCP - General FAMILY PRACTICE 06/01/21 documented as of this encounter
--- OUTSIDE RECORDS SUMMARY | 2024-02-01 17:01 | XMS_ITS | Encounter Summary ---
Author Organization [facility] Address [facility] [place] [address] [place] [address] Care Team Providers Care Rim Fire Priming Tool Setter Name Role Phone Jalen Coughlin MD Primary Care Provider [phone] Encounter Details Date Type Department Care Team (Latest Contact Info) Description 08/25/2020 Travel Social History Tobacco Use Types Packs/Day [...] [facility] Family & Internal Medicine [facility] [address] [place] [address] [place] [address] [facility]. [address] [place] [address] documented as of this encounter Visit Diagnoses Not on filedocumented in this encounter Additional Health Concerns Assessment Noted Time PHQ-9 Depression Total Score: 11 021 9:59 AM CDT documented as of this encounter Care Teams Rim Fire Priming Tool Setter Relationship Specialty Start Date End Date Jalen Coughlin MD PCP - General INTERNAL MEDICINE 08/25/20 05/31/21 documented as of this encounter
--- OUTSIDE RECORDS SUMMARY | 2024-02-01 17:01 | XMS_ITS | Encounter Summary ---
Author Organization [facility] Address [facility] [place] [address] [place] [address] Care Team Providers Care Fish Net Maker Name Role Phone Jalen Coughlin MD Primary Care Provider [phone] Encounter Details Date Type Department Care Team (Latest Contact Info) Description 11/24/2020 Travel Social History Tobacco Use Types Packs/Day [...] have Coronavirus / COVID-19? No / Unsure 11/24/2020 9:28 AM CDT documented as of this encounter Plan of Treatment Upcoming Encounters Date Type Department Care Team (Late st Contact Info) Description 07/23/2024 9:00 AM CDT Office Visit [facility] Family & Internal Medicine [facility] [address] [place] [address] [place] [address] [facility]. [address] [place] [address] documented as of this encounter Visit Diagnoses Not on filedocumented in this encounter Additional Health Concerns Assessment Noted Time PHQ-9 Depression Total Score: 11 021 9:59 AM CDT documented as of this encounter Care Teams Fish Net Maker Relationship Specialty Start Date End Date Jalen Coughlin MD PCP - General INTERNAL MEDICINE 08/25/20 05/31/21 documented as of this encounter
--- OUTSIDE RECORDS SUMMARY | 2024-02-01 17:01 | XMS_ITS | Encounter Summary ---
Author Organization [facility] Address [facility]6 [facility]. [place], [place] [address] [place] [address] Care Team Providers Care Senior Electrical Engineer Name Role Phone Stefania Bean MD Primary Care Provider [phone] Encounter Details Date Type Department Care Team (Latest Contact Info) Description 06/30/2023 Travel Social History Tobacco Use Types Packs/Day [...] 9:00 AM CDT Office Visit [facility] Family & Internal Medicine [facility] [address] [place] [address] [place] [address] [facility]. [address] [place] [address] documented as of this encounter Visit Diagnoses Not on filedocumented in this encounter Additional Health Concerns Assessment Noted Time PHQ-9 Depression Total Score: 8 12/04/19 23 11:13 AM CDT documented as of this encounter Care Teams Senior Electrical Engineer Relationship Specialty [place] [address] [facility] [address] [employer]. [address] [place] [address] PCP - General FAMILY PRACTICE 06/01/21 documented as of this encounter
--- OUTSIDE RECORDS SUMMARY | 2024-02-01 17:01 | XMS_ITS | Encounter Summary ---
Author Organization [facility] Address [facility] [place] [address] [place] [address] Care Team Providers Care Software Firmware Engineer Name Role Phone Stefania Bean MD Primary Care Provider [phone] Reason for Visit * Reason Onset Date Comments Prior Authorization 08/16/2023 Colonoscopy- [id number] Encounter Details Date Type Department Care Team (Late st Contact Info) Description 08/16/2023 Telephone [facility] Multispecialty Care - [facility] [address] [facility] [address] [place] [address] Yenny Pradhan MD 3 [facility] [address] [place] [address] Prior Authorization (Colonoscopy-[id number]) Social History Tobacco Use Types Packs/Day Years [...] Progress Notes * Pallavi Esquivel MA - 08/17/2023 8:15 AM CDT Online PA request was voided due to no PA being required * Pallavi Esquivel MA - 08/16/2023 8:47 AM CDT Case Details Requestor Name: Pallavi Damico Department: Gastroenterology Phone Number: E-mail Address: [email or web address] Department PhoneNumber: UR Department Fax Number: UR Department Contact Info: Patient Employee's Name: CHASITY BERNARD Name: CHASITY BERNARD Dqsh-[id number]: 1975 Home Phone: Details (Medical Outpatient ) Treatment Setting: Outpatient Treatment Type: Surgical Urgency: Elective Start Date: 08-26-2023 Direct Network: [email or web address] Primary Network: [employer] Diagnosis Code Description Z12 ENC SCREENING MALIGNANT NEOPLASMS Services Code Description Unit 37028 DIAGNOSTIC COLONOSCOPY 1 D 28160 COLONOSCOPY AND BIOPSY 1 D 80671 COLONOSCOPY W/LESION REMOVAL 1 D Facility Information Name: [facility] Address:[address] [place] [address] and ZIP: [place] [address] Phone: Tax Identification Number: [id number] Provider Information First Name: YENNY Valles Last Name: EBONY Gender: M Address: [address] [place] [address] and ZIP: [place] [address] Phone: Tax Identification Number: [id number] [employer] Provider Identifier: [id number] Clinical Documentation [email or web address] Prior authorization and predetermination are not a guarantee of benefits.Please contact the benefits department to verify coverage and benefit information for the member. Transaction Submission Confirmation was submitted on 08-16-2023 by [email or web address] documented in this encounter Plan of Treatment Upcoming Encounters Date Type Department Care Team ([facility] Contact Info) Description 07/23/2024 9:00 AM CDT Office Visit [facility] Family & Internal Medicine [place] [phone] Stefania Bean MD [address] [place] [address] [place] [address] documented as of this encounter Visit Diagnoses Not on filedocumented in this encounter Additional Health Concerns Assessment Noted Time PHQ-9 Depression Total Score: 8 12/04/19 23 11:13 AM CDT documented as of this encounter Care Teams Software Firmware Engineer Relationship Specialty [place] [address] [place] [address] PCP - General FAMILY PRACTICE 06/01/21 documented as of this encounter
--- OUTSIDE RECORDS SUMMARY | 2024-02-01 17:01 | XMS_ITS | Encounter Summary ---
Author Organization [facility] Address [facility] [place] [address] [place] [address] Care Team Providers Care Access Tech Name Role Phone Stefania Bean MD Primary Care Provider [phone] Encounter Details Date Type Department Care Team (Latest Contact Info) Description 04/11/2023 Travel Social History Tobacco Use Types Packs/Day [...] Description 07/23/2024 9:00 AM CDT Office Visit [facility] Family & Internal Medicine [facility] [address] [place] [address] [place] [address] [email or web address]. [address] [place] [address] documented as of this encounter Visit Diagnoses Not on filedocumented in this encounter Additional Health Concerns Assessment Noted Time PHQ-9 Depression Total Score: 8 12/04/19 23 11:13 AM CDT documented as of this encounter Care Teams Access Tech Relationship Specialty [place] [address] [facility] [employer]. [address] [place] [address] PCP - General FAMILY PRACTICE 06/01/21 documented as of this encounter
--- OUTSIDE RECORDS SUMMARY | 2024-02-01 17:01 | XMS_ITS | Encounter Summary ---
Author Organization [facility] Address [address] [place] [address]. [place] [address] [place] [address] Care Team Providers Care Tobacco Primer Machine Operator Name Role Phone Jalen Coughlin MD Primary Care Provider [phone] Reason for Visit * Reason Comments Follow Up 3 month follow up Depression Encounter Details Date Type Department Care Team (Late st Contact Info) Description 11/24/2020 9:40 AM CDT Office Visit [facility] Family & Internal Medicine [facility] [address] [place] [address] Jalen Coughlin MD [address] [address] Follow Up (3 month follow up); Depression Social History Tobacco Use Types Packs/Day Years [...] Sign Reading Time Taken Comments Blood Pressure 120/86 11/24/2020 9:38 AM CDT Pulse 55 11/24/2020 9:38 AM CDT Temperature 36.6 ??C (97.9 ??F) 11/24/2020 9:38 AM CD T Respiratory Rate 16 11/24/2020 9:38 AM CDT Oxygen Saturation 96% 11/24/2020 9:38 AM CDT Inhaled Oxygen Concentration - - Weight 107.5 kg (237 lb) 11/24/2020 9:38 AM CDT Height 180.3 cm (5' 11 ) 11/24/2020 9:38 AM CDT Body Mass Index 33.05 11/24/2020 9:38 AM CDT documented in this encounter Patient Instructions * Patient Instructions* Jalen Coughlin MD - 11/24/2020 9:40 AM CDT Basim, Thank you for your visit Continue your current medications. Your hemoglobin A1c indicates prediabetes (5.7-6.4) I'd repeat this in 6 months. As you exit, please stop at the front desk associate and schedule your follow-up appointment. Return in about 6 months (around 05/25/2021) for routine follow-up, and as needed. Call with any concerns. Have a good day! Exercise recommendations: ??? It is recommended that you do daily aerobic (walking, riding a bike, swimming) and resistance exercises (light weight lifting, resistance band stretching) for at least 30 minutes, most days of the week ??? If you cannot walk, chair exercises for 10-15 minutes per day would help tremendously ??? As little as 15-20 minutes exercise, in one or two sessions a day, is still very helpful to improve your diabetes control Diet recommendations: ??? Eat small portion meals, trying not to consume more than 1800 calories a day ??? Try to eat not more than than 2 servings of carbs (starches) wiith your meals ??? Avoid soft drinks, including regular sodas, fruit juices and sweetened tea. Drink water instead ??? Eat plenty of green and leafy vegetables, including salads documented in this encounter Progress Notes * Jalen Coughlin MD - 11/24/2020 9:40 AM CDT SUBJECTIVE: Reason for Visit/Chief Complaint: Follow Up (3 month follow up) and Depression History of Present Illness: Chief complaint and nursing note reviewed above. Basim presents for routine 3-month follow-up after our initial visit in August. At that time, he was started on sertraline, low-dose (25 mg), which was then increased to 50 mg. Currently, he reports good control of symptoms at this dose, though initially had some increased sleepiness while taking thismedication. That seems to have settled down. He does continue to work shift work, and as noted previously has obstructive sleep apnea, not treated with CPAP at this time be ineffective. He otherwise feels well and denies any other acute or recent illnesses or concerns. He reports he has begun running, approximately 1/2 mile 3 times a week. At the time of his initial visit, his labs revealed hyperglycemia, with blood sugar near 200. Diabetes does run in his family. He reports consistent use of medications, without side effects or intolerances. Dysthymia ??? Compliant with SSRI. No side effects. ??? Not attending psychotherapy/counseling. ??? Experiencing less physical and emotional stress. ??? Exercising. ??? Sleeping more than 6 hrs. ??? Denies panic attacks. ??? No chest pain, shortness of breath, gastrointestinal symptoms, or palpitations. ??? Denies depression. ??? Denies suicidal ideation. PAST MEDICAL, SURGICAL, FAMILY AND SOCIAL HISTORIES were reviewed in detail and the computerized patient record updated as needed. MEDICATION LIST reviewed, including dosages, timing, indications, and recent reconciliations. REVIEW OF SYSTEMS: Pertinent positives and negatives as noted in HPI. All other systems reviewed and negative. Current medication(s) at the start of this visit: Medication Sig ??? sertraline 50 MG tablet Take 1 tablet (50 mg total) by mouth daily. No Known Allergies OBJECTIVE: Vital signs: Temp 97.9 ??F (36.6 ??C) (Temporal) BP 120/86 Pulse 55 Resp 16 SpO2 96% Wt 107.5 kg (237 lb) BMI 33.05 kg/m?? Physical Examination: GENERAL: Well-developed and obese, cooperative. Well-appearing, in no acute distress. SKIN: Normal color, warm & dry. Without lesions. HEAD: Normocephalic, without trauma. EENT: Extraocular movements intact, pupils equal, round, and reactive to light, sclerae anicteric, conjunctivae non-injected and without discharge; tympanic membranes clear with normal light reflex, in normal position; nasopharynx clear; oropharynx clear, oral mucosa moist, without lesions. Good dentition. NECK: Supple, without thyromegaly, lymphadenopathy, or masses. [...] gait normal. MUSCULOSKELETAL: Normal range of motion. PSYCHOLOGICAL/MSE: Patient has no self-care deficit. Eye contact, posture, psychomotor activity arenormal. Speech is normal in rate and volume and is goal- directed. Mood and affect are normal. Patient has no objective signs of psychosis or dissociative state. Patient denies being an injury risk toself or others. Patient is at least average in intelligence, fund of knowledge, insight and judgment. GENITOURINARY: Deferred. Additional Data: Reviewed CBC Lab Results Component Value Date WBC 5.7 08/25/2020 HGB 14.2 08/25/2020 HCT 43.1 08/25/2020 MCV 95.1 08/25/2020 RDW 12.0 (L) 08/25/2020 PLT 224 08/25/2020 CMP Lab Results Component Value Date NA 144 08/25/2020 K 4.1 08/25/2020 CL 106 08/25/2020 CO2 29.5 08/25/2020 BUN 13 08/25/2020 CR 1.19 08/25/2020 GFR 85 (L) 08/25/2020 GLU 194 (H) 08/25/2020 CA 9.1 08/25/2020 TBIL 0.3 08/25/2020 TP 6.8 08/25/2020 ALB 3.8 08/25/2020 AST 29 08/25/2020 ALT 67 (H) 08/25/2020 ALKP 71 08/25/2020 Lipid Panel Lab Results Component Value Date CHOL 124 11/02/2018 TRI 188 (H) 11/02/2018 HDL 32 (L) 11/02/2018 LDL 54 11/02/2018 Thyroid Lab Results Component Value Date TSH 0.744 08/25/2020 Lab Results Component Value Date HGBA1C 5.7 11/24/2020 HGBA1C 5.5 11/02/2018 ASSESSMENT & PLAN: 1. Dysthymia ?? Patient doing well on current medication, without side effects or intolerances ?? Improved (decreased) irritability. ?? Continue current treatment at present dose 2. Hyperglycemia ?? Mild hyperglycemia ?? Patient encouraged to exercise consistently, and follow a diet low in carbohydrates ?? Recheck in 6 months 3. Class 1 obesity due to excess calories without serious comorbidity with body mass index (BMI) of33.0 to 33.9 in adult Encouraged healthy diet and regular exercise as tolerated, targeting 30-60 minutes 5 out of 7 days. Medication Changes/Renewals & Orders: Orders Placed This Encounter ??? COLLECT.CAPILLARY (FNGR,HEEL,EAR) ??? HEMOGLOBIN, GLYCOSYLATED ??? sertraline 50 MG tablet Follow-up: Return in about 6 months (around 05/25/2021) for routine follow-up, and as needed. Jalen Coughlin MD FA[facility] Internal Medicine & Pediatrics 11/24/2020 Portions of this note were dictated using [employer] speech recognition software. Occasional wrong wordor sound-alike substitutions may have occurred due to the inherent limitations of voice recognition software. Please read the chart carefully and recognize, using context, where the substitutions may have occurred. TER DOFFER documented in this encounter Plan of Treatment Upcoming Encounters Date Type Department Care Team (Late st Contact Info) Description 07/23/2024 9:00 AM CDT Office Visit [facility] Family & Internal Medicine [facility] [address] [place] [address] [place] [address] [facility] [place] [address] documented as of this encounter Procedures Procedure Name Priority Date/Time Associated Diagnosis Comments COLLECT.CAPILLARY (FNGR,HEEL,EAR) Routine 11/24/2020 10:26 AM CDT Hyperglycemia HEMOGLOBIN, GLYCOSYLATED Routine 11/24/2020 Hyperglycemia documented in this encounter Results * HEMOGLOBIN, GLYCOSYLATED (11/24/2020) HGB A1C 5.7 % -[id number] [facility] 11/24/2020 us Jalen Coughlin MD LABORATORY Final Res ult -[id number] [facility] [id number] [place] [address], documented in this encounter Visit Diagnoses Diagnosis Dysthymia- Primary Dysthymic disorder Hyperglycemia Other abnormal glucose Class 1 obesity due to excess calories without serious comorbidity with body mass index (BMI) of 33.0 to 33.9 in adult Medication management Encounter for long-term (current) use of other medications documented in this encounter Additional Health Concerns Assessment Noted Time PHQ-9 Depression Total Score: 11 021 9:59 AM CDT documented as of this encounter Care Teams Tobacco Primer Machine Operator Relationship Specialty Start Date End Date Jalen Coughlin MD PCP - General INTERNAL MEDICINE 08/25/20 05/31/21 documented as of this encounter
--- OUTSIDE RECORDS SUMMARY | 2024-02-01 17:01 | XMS_ITS | Encounter Summary ---
Author Organization [facility] Address [facility]. [place], [place] [address] [place] [address] Care Team Providers Care Fisher Hoop Net Name Role Phone Stefania Bean MD Primary Care Provider [phone] Encounter Details Date Type Department Care Team (Latest Contact Info) Description 04/26/2022 Travel Social History Tobacco Use Types Packs/Day [...] PM CDT documented as of this encounter Plan of Treatment Upcoming Encounters Date Type Department Care Team (Late st Contact Info) Description 07/23/2024 9:00 AM CDT Office Visit [facility] Medical Group Family & Internal Medicine [facility] [address] [place] [address] Stefania Bean MD [address] [place] [address]. [address] [place] [address] documented as of this encounter Visit Diagnoses Not on filedocumented in this encounter Additional Health Concerns Assessment Noted Time PHQ-9 Depression Total Score: 16 023 3:40 PM CDT documented as of this encounter Care Teams Fisher [employer] Net Relationship Specialty [place] [address] [address] [place] [address] PCP - General FAMILY PRACTICE 06/01/21 documented as of this encounter
--- OUTSIDE RECORDS SUMMARY | 2024-02-01 17:01 | XMS_ITS | Encounter Summary ---
Author Organization [facility] Address [facility] [place] [facility] [place] [address] [place] [address] Care Team Providers Care Business Insight And Analytics Manager Name Role Phone Stefania Bean MD Primary Care Provider [phone] Reason for Visit * Reason Onset Date Comments Medication Request 02/01/2023 Encounter Details Date Type Department Care Team (Late st Contact Info) Description 02/01/2023 Telephone [facility] Family & Internal Medicine [facility] [address] [place] [address] [place] [address] [facility] [place] [address] Medication Request Social History Tobacco Use Types Packs/Day Years [...] as of this encounter Progress Notes * Mulu Villagomez RN - 02/03/2023 12:21 PM CSTAddended by: MULU VILLAGOMEZ on: 02/03/2023 12:21 PM Modules accepted: Orders ATTENDANT * Lorenza Agrawal - 02/03/2023 12:08 PM CST Patient called back and was given the information below and he voiced understanding. ATTENDANT * Mulu Villagomez RN - 02/03/2023 12:04 PM CST LMOM to call office- need to inform of 's response below. ATTENDANT * Pallavi Kate MA - 02/02/2023 7:23 AM CST Left message on machine. ATTENDANT * Stefania Bean MD - 02/01/2023 8:57 PM CST Given tolerating medication good and improving, increase Lexapro to 30 mg daily. Sent for 30 days with 5 refills. Follow-up in March as scheduled. ATTENDANT * Pallavi Kate MA - 02/01/2023 12:12 PM CST Please advise? ATTENDANT * Luz Garcia LPN - 02/01/2023 10:52 AM CST Pt called last OV 12/03/22 depression Pt is on Escitalopram 20 mg daily he is requesting increase to 30 mg Pt is not noticing a improvement in mood since last OV Pharm [facility] I informed pt that policy for increase medication is to seen [phone] ATTENDANT documented in this encounter Plan of Treatment Upcoming Encounters Date Type Department Care Team (Late st Contact Info) Description 07/23/2024 9:00 AM CDT Office Visit [facility] Medical Group Family & Internal Medicine [place] [phone] [place] [address] [place] [address] documented as of this encounter Visit Diagnoses Diagnosis Moderate episode of recurrent major depressive disorder (CMS/HCC HHS/HCC) documented in this encounter Additional Health Concerns Assessment Noted Time PHQ-9 Depression Total Score: 8 12/04/19 23 11:13 AM CDT documented as of this encounter Care Teams Business Insight And Analytics Manager Relationship Specialty Start [place] [address] [address] [place] [address] PCP - General FAMILY PRACTICE 06/01/21 documented as of this encounter
--- OUTSIDE RECORDS SUMMARY | 2024-02-01 17:01 | XMS_ITS | Encounter Summary ---
Author Organization [facility] Address [facility]6 [facility] [place] [address] [place] [address] Care Team Providers Care Asphalt Paving Supervisor Name Role Phone Stefania Bean MD Primary Care Provider [phone] Reason for Visit * Reason Onset Date Comments Orders 05/26/2022 Encounter Details Date Type Department Care Team (Late st Contact Info) Description 05/26/2022 Telephone [facility] Family & Internal Medicine [facility] [address] [place] [address] [place] [address] [facility]. [address] [place] [address] Orders Social History Tobacco Use Types Packs/Day Years [...] AM CDT documented as of this encounter Progress Notes * Ada Brown RN - 06/07/2022 4:14 PM CDT Patient had labs completed today * Ada Brown RN - 05/27/2022 1:32 PM CDT Message left for patient to return call * Stefania Bean MD - 05/27/2022 12:56 PM CDT Labs ordered, please let patient know. Please advise patient to do around 8- 9 AM for accuracy of testosterone. * Ada Brown RN - 05/26/2022 10:56 AM CDT Please advise. * Tia Barbosa - 05/26/2022 10:47 AM CDT Patients spouse called stating patient is wanting to have his TSH and testosterone checked, Please call pt when orders are placed documented in this encounter Plan of Treatment Upcoming Encounters Date Type Department Care Team (Late st Contact Info) Description 07/23/2024 9:00 AM CDT Office Visit [facility] Family & Internal Medicine [facility] [id number] [place] [phone] [place] [address] [facility]. [address] [place] [address] documented as of this encounter Procedures Procedure Name Priority Date/Time Associated Diagnosis Comments TSH W/REFLEX Routine 06/07/2022 7:21 AM CDT Thyroid disorder screening TESTOSTERONE, FREE & TOTAL Routine 06/07/2022 7:21 AM CDT Other fatigue VITAMIN D, 25 OH Routine 06/07/2022 7:21 AM CDT Vitamin D deficiency documented in this encounter Results * TESTOSTERONE, FREE & TOTAL (06/07/2022 7:21 AM CDT) TESTOSTERONE TOTAL 263 250 - 1,100 ng/dL [facility] Comment: Men with clinically significant hypogonadal symptoms and testosterone values repeatedly in the range of the 200-300 ng/dL or less, may benefit from testosterone treatment after adequate risk and benefits counseling. For additional information, please refer to https://education.Howbuy.Readyforce/faq/QWW954 (This link is being provided for informational/educational purposes only.) (Note) This test was developed and its analytical performance characteristics have been determined by [employer]. It has not been cleared or approved by the FDA. This assay has been validated pursuant to the CLIA regulations and is used for clinical purposes. TESTOSTERONE FREE 67.6 35.0 - 155.0 pg/mL [facility] Comment: (Note) This test was developed and its analytical performance characteristics have been determined by [employer]. It has not been cleared or approved by the FDA. This assay has been validated pursuant to the CLIA regulations and is used for clinical purposes. [facility] [address] [place] [address],[address] [place] [address] Abdelrahman Adams MD 06/07/2022 7:21 AM CDT 06/08/2022 5:00 AM CDT Narrative Resulting Agency Comment Performing Organization Information: ?Site ID: [id number] ?Name: [facility] ?Address: [address] [place] [address], [address] [place] [phone] ?Director: Abdelrahman Adams MD us Stefania Bean MD LABORATORY Final Result [facility] [address] [place] [address], [address] [place] [phone], * (ABNORMAL) VITAMIN D, 25 OH (06/07/2022 7:21 AM CDT) [facility] VITAMIN D 25 HYDROXY TOTAL S/P/B 18.1(L) >29.9 ng/mL [facility] Comment: Vitamin D, 25-Hydroxy reports concentrations of [...] ng/mL before there is any concern. Hesham PAIGE, Freeman PORRAS, José MONTANA, et al. Evaluation, treatment, and prevention of vitamin D deficiency: an Endocrine Society clinical practice guideline. J Clin Endocrinol Metab. 2011;96(7):1911-30.This test is performed by a Liquid Chromatography-Tandem Mass Spectrometry (LC-MS/MS) method. This test was developed and its performance characteristics determined by the [facility], [facility]. It has not been cleared or approved by the U.S. FDA. The [facility], [facility]. is regulated under Clinical Laboratory Improvement Amendments [...] 2011;96(7):1911-30. VITAMIN D 25 HYDROXY D3 S/P/B 12.5 ng/mL [facility] Comment: This test was developed and its analytical performance characteristics have been determined by [employer]. It has not been cleared or approved by the FDA. This assay has been validated pursuant to the CLIA regulations and is used for clinical purposes. VITAMIN D 25 HYDROXY D2 S/P/B 5.6 ng/mL [employer] Comment: This test was developed and its analytical performance characteristics have been determined by [employer]. It has not been cleared or approved by the FDA. This assay has been validated pursuant to the CLIA regulations and is used for clinical purposes. 06/07/2022 7:21 AM CDT 06/08/2022 5:58 AM CDT Narrative Resulting Agency Comment Performing Organization Information: ?Site ID: [id number] ?Name: [facility] ?Address: [address] [place] [address] ?Director: Jose Antonio Ledesma MD Stefania Bean MD LABORATORY Final Result [facility] [address] * TSH W/REFLEX (06/07/2022 7:21 AM CDT) TSH 1.57 0.40 - 4.50 mIU/L [facility] 06/07/2022 7:21 AM CDT 06/08/2022 5:00 AM CDT Narrative Resulting Agency Comment Performing Organization Information: ?Site ID: [id number] ?Name: [facility] ?Address: [address] [place] [address] ?Director: Calvin Gunn MD Stefania Bean MD LABORATORY Final Result [facility] [address], [place] [address] documented in this encounter Visit Diagnoses Diagnosis Vitamin D deficiency- Primary Unspecified vitamin D deficiency Thyroid disorder screening Screening for thyroid disorder Other fatigue documented in this encounter Additional Health Concerns Assessment Noted Time PHQ-9 Depression Total Score: 16 023 3:40 PM CDT documented as of this encounter Care Teams Asphalt Paving Supervisor Relationship Specialty [place] [address] [facility] [address] [place] [address] PCP - General FAMILY PRACTICE 06/01/21 documented as of this encounter
--- OUTSIDE RECORDS SUMMARY | 2024-02-01 17:01 | XMS_ITS | Encounter Summary ---
Author Organization [facility] Address [facility] [place] [address] [place] [address] Care Team Providers Care Entry Clerk Name Role Phone Stefania Bean MD Primary Care Provider [phone] Reason for Visit * Reason Onset Date Comments Medication 07/09/2021 Encounter Details Date Type Department Care Team (Late st Contact Info) Description 07/09/2021 Telephone [facility] Family & Internal Medicine [facility] [address] [place] [address] [place] [address] [facility]. [address] [place] [address] Medication Social History Tobacco Use [...] Progress Notes * Mulu Villagomez RN - 07/09/2021 1:07 PM CDT LMOM that high dose vit d sent to [facility], call with any questions. * Susan Herring - 07/09/2021 11:34 AM CDT Radha called for her asking about Vitamin D medication that was discussed. Radha thought this was going to be a script that was sent to the pharmacy, I told them sometimes it can be purchasedover the counter also. Checking to see if a script is going to be sent or if they need to picker packer over the counter. If over the counter what do they need to look for and how much? Pharmacy: [facility] # [phone] Radha documented in this encounter Plan of Treatment Upcoming Encounters Date Type Department Care Team (Late st Contact Info) Description 07/23/2024 9:00 AM CDT Office Visit [facility] Family & Internal Medicine [address] [phone] [place] [address] [facility]. [address] [place] [address] documented as of this encounter Visit Diagnoses Diagnosis Vitamin D deficiency- Primary Unspecified vitamin D deficiency documented in this encounter Additional Health Concerns Assessment Noted Time PHQ-9 Depression Total Score: 11 021 9:59 AM CDT documented as of this encounter Care Teams Entry Clerk Relationship Specialty [place] [address] [facility]. [address] [place] [address] PCP - General FAMILY PRACTICE 06/01/21 documented as of this encounter
--- OUTSIDE RECORDS SUMMARY | 2024-02-01 17:01 | XMS_ITS | Encounter Summary ---
Author Organization [facility] Address [facility]6 [facility]. [place], [place] [address] [place] [address] Care Team Providers Care Manager Client Support Name Role Phone Stefania Bean MD Primary Care Provider [phone] Encounter Details Date Type Department Care Team (Latest Contact Info) Description 06/07/2022 Travel Social History Tobacco Use Types Packs/Day [...] HOSPITAL Medical Group Family & Internal Medicine [facility] [id number] [place] [address] Stefania Bean MD [address] [place] [address]. [address] [place] [address] documented as of this encounter Visit Diagnoses Not on filedocumented in this encounter Additional Health Concerns Assessment Noted Time PHQ-9 Depression Total Score: 9 06/08/19 23 7:01 AM CDT documented as of this encounter Care Teams Manager Client Support Relationship Specialty [place] [address] [address] [place] [address] PCP - General FAMILY PRACTICE 06/01/21 documented as of this encounter
--- OUTSIDE RECORDS SUMMARY | 2024-02-01 17:05 | XMS_ITS | Patient Health Record ---
Author Organization [facility] Planning Address [address] [place] [address] Care Team Providers Care Tankroom Worker Name Role Phone kellykellyKimberlyWilfred Primary Care Provider Reason For Referral No Information Medications Medication SIG (Take, Route, Fr equency, Duration) Notes Start Date End Date Status PROzac 20 MG TAKE ONE CAPSULE BY MOUTH EVERY DAY Oral Once a day for 30 days ([facility]) 10/10/2013 Acti ve Social History Tobacco Use: Social History Observation Description Date Details (start date - stop date) Never Smoker NA - NA Tobacco Use/Smoking Question Answer Notes Are you a nonsmoker Problems Problem Type SNOMED Code ICD Code Onset Dates Problem Status W/U Status Risk Notes Problem Anxiety state (997392831) Anxiety state, unspecified (300.00) 3 Active confirmed ([facility]) Added By: Stephanie Guy Plan Of Treatment No Information Insurance Providers Payer Name Payer Address Payer Phone Subscriber Number Group Number Insured Name Patient Relationship to Insured Coverage Start Date Coverage End Date [employer] k PPO [address] [place], [place] [id number] Mio Bernard Self - patient is the insured 1
--- OUTSIDE RECORDS SUMMARY | 2024-02-01 17:05 | XMS_ITS | Continuity of Care Document ---
Author Organization [facility] [employer] Address [address] [place] [address] Phone Care Team Providers Care Fish Technologist Name Role Phone Andres Valero MD Unavailable Unavailable Procedures Procedure Date OFFICE/OUTPATIENT VISIT, [facility] TB INTRADERMAL TEST Non-Billable Services OFFICE/OUTPATIENT VISIT, [facility] TDAP VACCINE >7 IM Advance Directives Directive Yes / No Effective Date File Name No Information Encounters Encounter Description Practice Location Reason(s) For Visit Diagnoses Date Provider Providers Copied on Encounter OFFICE/OUTPAT IENT VISIT, [facility], [address], [place], [place], [id number], tel:[phone] [facility] No Information Marylu Campos. [address] [place], [address], [place]. tel:[phone] Referring Provider: Andres Vargas, [address] [place], [address]. tel:[phone] [facility] [employer], [address], [place], [place], [id number], [place] tel:[phone] [facility] No Information Mehdi Haile. [address], [place], [place], [id number], [place]. tel:[phone] Referring Provider: Lazara Harding, [address], [place], [address] . tel:[phone] OFFICE/OUTPAT IENT VISIT, [facility] [employer], [address], [place], [place], [address], [place] tel:[phone] [facility] No Information Mehdi Haile. [address], [place], [place], [id number], [place]. tel:[phone] Referring Provider: Lazara Harding, [address], [place], [address] . tel:[phone] Family History Family Member Type Diagnosis Age At Onset No Information Payers Payer name Insurance type Covered constitution party ID Frida pearce(s) [facility] [id number] Social History Type Description Quantity Date Captured Comments Sex Male Smoking Status No Information Chief Complaint And Reason For Visit No Information Reason For Referral Reason For Referral No Information History Of Present Illness Encounter Date Complaint History Of Prese nt Illness No Information Functional Status Date Functional Assessmen t No Information Instructions Date Instruction Additional Infor mation No Information Assessments Type Assessment Date No Information Patient Care Teams Name Effective Dates (start - stop) Status Members No Information
--- OUTSIDE RECORDS SUMMARY | 2024-02-01 17:10 | XMS_ITS | Continuity of Care Document ---
Author Organization [facility] [employer] Address [address] [place] [address] Phone Care Team Providers Care Tread Cutter Name Role Phone Andres Valero MD Unavailable Unavailable Procedures Procedure Date OFFICE/OUTPATIENT VISIT, [facility] TB INTRADERMAL TEST Non-Billable Services OFFICE/OUTPATIENT VISIT, [facility] TDAP VACCINE >7 IM Advance Directives Directive Yes / No Effective Date File Name No Information Encounters Encounter Description Practice Location Reason(s) For Visit Diagnoses Date Provider Providers Copied on Encounter OFFICE/OUTPAT IENT VISIT, [facility] [employer] [facility], [address], [place], [place], [id number], tel:[phone] [facility] No Information Marylu Campos. [address] [place], [address], [place]. tel:[phone] Referring Provider: Andres Vargas, [address] [place], [address]. tel:[phone] [facility] [employer] [facility], [address], [place], [place], [address], [place] tel:[phone] [facility] No Information Mehdi Haile. [address], [place], [place], [address], [place]. tel:[phone] Referring Provider: Lazara Harding, [address], [place], [address] . tel:[phone] OFFICE/OUTPAT IENT VISIT, [facility] [employer], [address], [place], [place], [id number], [place] tel:[phone] [facility] No Information Mehdi Haile. [address], [place], [place], [address], [place]. tel:[phone] Referring Provider: Lazara Harding, [address], [place], [address] . tel:[phone] Family History Family Member Type Diagnosis Age At Onset No Information Payers Payer name Insurance type Covered libertarian ID Frida pearce(s) [facility] [id number] Social History Type Description Quantity Date Captured [...]
== END 2024-01-28 14:30 | disposition home or self-care (01) ==
PROVIDERS: Emergency Provider Nurse Practitioner Family; PCP Family Medicine
DX: J01.90 Acute sinusitis, unspecified (principal)
CPT/HCPCS: 99213; G0463